=== PATIENT | male | born 2000 | race Caucasian/White ===

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

== ENCOUNTER 2021-05-08 07:24 | Emergency (ER) | payer OTHER, SELFPAY ==
[2021-05-08 07:24] VITALS: BP 133/83; PULSE 87; RESP 18; TEMP 35.8; O2SAT 100; BMI 20.9
--- NOTE | 2021-05-08 07:54 | EDS_ITS ---
HPI HPI - GI History of Present Illness Chief Complaint: Abd Pain Informant: patient Abdominal Pain/Flank Pain Onset: Weeks (1) Context: Gradual Onset Timing: Continuous Quality: Sharp Location: RUQ and RLQ Worsened by: Nothing Relieved by: Nothing Nausea/Vomiting/Emesis GI Symptom: Positive for Nausea; Negative for Vomiting Diarrhea/Melena/Hematochezia GI Symptom: Positive for Diarrhea; Negative for Melena and Hematochezia Associated Symptoms Associated Symptoms: Negative for Dysuria, Frequency and Hematuria Narrative Narrative: Patient presents with abdominal pain that has been constant for the past week. Patient states the pain is worse over the right upper abdomen and radiates into his right lower abdomen. Patient also admits to some pain in his back on the right side. Patient describes the pain as sharp. Patient states nothing makes it worse and nothing makes it better. Patient admits to nausea but denies any vomiting. Patient admits to diarrhea but denies any melena or hematochezia. Patient denies any dysuria or hematuria. Patient states his urine is darker in color however. Patient also admits to some subjective fevers. [facility] Medical History (Updated 05/08/21 @ 11:[address] Subhash Blackwood DO) GERD (gastroesophageal reflux disease) Home Medications pantoprazole 40 mg PO BID 05/08/21 [History Last Taken Unknown] sulfamethoxazole-trimethoprim 1 tab PO BID #6 tablet 05/08/21 [Rx Last Taken Unknown] Allergy/AdvReac Type Severity Reaction Status Date / Time codeine Allergy Hives Verified 05/08/21 07:27 beef derived (bovine) AdvReac Nausea/Vom/ Verified 05/08/21 07:27 Diarrhea casein AdvReac Nausea/Vom/ Verified 05/08/21 07:27 Diarrhea lactose AdvReac Nausea/Vom/ Verified 05/08/21 07:27 Diarrhea whey AdvReac Nausea/Vom/ Verified 05/08/21 07:27 Diarrhea Family History Other Diabetes Kidney disease Surgical History History of foot surgery History of tonsillectomy Status post labral repair of shoulder Social History (Updated 05/08/21 @ 07:[address] Subhash Schwiger, DO) Smoking Status: Current every day smoker tobacco type: e-cigarettes alcohol intake: never substance use type: marijuana ROS ROS ED Constitutional Constitutional ED: Reports fever(s) and subjective; Denies chills Eyes Eyes: Denies blurry vision or change in vision ENT ENT ED: Denies rhinorrhea or sore throat Cardiovascular Cardiovascular: Denies chest pain or palpitations Respiratory/Chest Respiratory/Chest: Denies cough or dyspnea Gastrointestinal Gastrointestinal: Reports abdominal pain, diarrhea and nausea; Denies vomiting Genitourinary Genitourinary ED: Denies dysuria or hematuria Musculoskeletal Musculoskeletal: Reports back pain; Denies neck pain Integumentary Denies abscess or rash Neurologic Neurologic: Reports headache(s); Denies weakness Allergic/Immunologic Allergic/Immunologic ED: Denies mouth swelling or urticaria EXAM Physical Exam Const Vital Signs: 05/08/21 07:24 Temperature 96.5 F L Temperature Source Temporal Pulse Rate 87 Respiratory Rate 18 Blood Pressure 133/83 H Blood Pressure Mean 99 Pulse Ox 100 Oxygen Delivery Method Room Air Positive well nourished and well developed General Appearance ED: well developed HEENT Reports moist mucous membranes Neck supple and no JVD Resp normal respiratory effort and clear to auscultation bilaterally Cardio regular rate, regular rhythm and no murmurs GI normal to inspection, nondistended, normoactive bowel sounds and non-distended Auscultation: normoactive bowel sounds Palpation: soft and tender RLQ and RUQ; Negative for guarding or rebound tenderness present Extremity normal to inspection General Extremety ED: Negative for edema or tenderness General Extremity: Negative for edema Neuro oriented x3, CN's II-XII intact bilaterally and no sensory deficits noted Sensorium / Orientation: alert Motor Exam: strength 5/5 throughout Psych mental status grossly normal Skin no rashes or lesions noted MDM MDM MDM Narrative Medical decision making narrative: Patient was given IV fluids. Patient was given a dose of Zofran. CBC was within normal limits. Comprehensive metabolic profile was essentially within normal limits. Urinalysis shows leukocyte Estrace of 500 and occult blood of 250. There are 25-50 red blood cells and 25- 50 white blood cells. There is 1+ bacteria. Urine culture was ordered. CT scan of the abdomen and pelvis was obtained. There is a distended urinary bladder and bladder wall thickening. There is some mild fullness of the right ureter. There is no other acute abnormality. The liver and gallbladder are normal. Patient was given a dose of Rocephin here. Patient was given a prescription for Bactrim. Patient was instructed to follow-up with his primary care physician in 3 to 5 days. Patient understood and was agreeable with the plan. All questions were answered. Lab Data Attestation: I reviewed the patient's lab results. Labs: Laboratory Results - last 24 hr 05/08/21 05/08/21 05/08/21 08:00 08:00 09:05 WBC 9.7 RBC 5.42 Hgb 15.5 Hct 45.6 MCV 84.1 MCH 28.6 MCHC 34.0 RDW Std Deviation 40.3 RDW Coeff of Shahbaz 13.2 Plt Count 187 MPV 11.6 Immature Gran % (Auto) 0.300 Neut % (Auto) 67.1 Lymph % (Auto) 21.2 [place] % (Auto) 7.8 Eos % (Auto) 3.1 Baso % (Auto) 0.5 Absolute Neuts (auto) 6.5 Absolute Lymphs (auto) 2.05 Nucleated RBC % 0 Sodium 141 Potassium 4.0 Chloride 108 H Carbon Dioxide 30.0 Anion Gap 3 L BUN 19 H Creatinine 1.12 Estim Creat Clear Calc 93.01 Est GFR (MDRD) Af Amer 107 Est GFR (MDRD) Non-Af 89 BUN/Creatinine Ratio 17.0 Glucose 106 Calcium 9.1 Total Bilirubin 0.20 AST 21 ALT 21 Alkaline Phosphatase 70 Total Protein 6.0 L Albumin 2.6 L Globulin 3.4 Albumin/Globulin Ratio 0.8 L Lipase 179 Urine Color Yellow Urine Clarity Sl. Cloudy Urine pH 7.0 Ur Specific [place] 1.010 Urine Protein 500 H Urine Glucose (UA) Normal Urine Ketones Negative Urine Occult Blood 250 H Urine Nitrite Negative Urine Bilirubin Negative Urine Urobilinogen Normal Ur Leukocyte Esterase 500 H Urine RBC 25-50 SEEN Urine WBC 25-50 SEEN Ur Squamous Epith Cells 0 SEEN Urine Bacteria 1+ Urine Mucus 0 SEEN Radiography Diagnostic Testing: Clinical Impression(s) from Imaging Studies Abdomen/Pelvis CT 05/08/21 07:58 IMPRESSION: Distended urinary bladder. Diffuse bladder wall thickening. Electronically Signed: Shimon Fajardo MD at 10:47 EST , Discharge Plan Triage Chief Complaint: Abd Pain ED Provider: Subhash Blackwood Dx/Rx/DC Orders Clinical Impression: Urinary tract infection Instructions: ED Bladder Infection, Male (Adult), ED Abdominal Pain Unkn Cause Male... Prescriptions: New sulfamethoxazole-trimethoprim [sulfamethoxazole-trimethoprim] 1 TABLET tablet 1 tab PO BID Qty: 6 RF: 0 No Action pantoprazole 40 mg Tablet,Delayed Release (Dr/Ec) 40 mg PO BID RF: 0 Primary Care Provider: Franck Love Referrals: Franck Love DO [Primary Care Provider] - 3-5 Days Disposition Disposition: Home, Self Care
--- NOTE | 2021-05-08 07:58 | CT_ITS ---
STUDY: CT ABDOMEN AND PELVIS WITH CONTRAST REASON FOR EXAM: Male, 21 years old. One-week history of sharp abdominal pain. RADIATION DOSAGE (If Supplied By Facility): CTDIvol = ( 7.96 ) mGy, DLP = ( 312.05 ) mGycm TECHNIQUE: Transaxial images were obtained from the dome of the diaphragm to the symphysis pubis with oral contrast. Oral and amp; IV Gastrografin and amp; 100mL Isovue-300 was administered. Sagittal and coronal images were reconstructed. Individualized dose optimization techniques were used for this CT. COMPARISON: None. FINDINGS: The visualized lung bases are unremarkable. The visualized portions of the heart are within normal limits. Normal liver. Normal gallbladder and extrahepatic biliary system. Normal spleen. Normal pancreas. Normal bilateral adrenal glands. Normal right kidney. Fullness of the right ureter. Normal left kidney. Normal visualized stomach. Normal small intestine. Normal colon. The appendix is visualized and appears normal. Normal abdominal aorta. Normal inferior vena cava. Normal retroperitoneum. Distended urinary bladder. Diffuse bladder wall thickening. Normal abdominal wall. Normal osseous structures. CT/Abdomen/Pelvis WITH Contrast IMPRESSION: Distended urinary bladder. Diffuse bladder wall thickening. Electronically Signed: Shimon Fajardo MD at 10:47 EST ,
[2021-05-08 08:06] LABS: Absolute Lymphocyte Count 2.05 X10^3/uL (0.83-4.51); Absolute Neutrophil Count 6.5 X10^3/uL (2.0-7.7); Basophil# 0.05 X10^3/uL; Basophil% 0.5 % (0-1); Eosinophils% 3.1 % (0-5); Hematocrit 45.6 % (40-54); Hemoglobin 15.5 g/dL (13.0-16.5); Lymphocyte # 2.05 X10^3/ul (0.83-4.51); Lymphocyte % 21.2 % (19-41); Mean Corpuscular Hgb 28.6 pg (27.0-32.0); Mean Corpuscular Volume 84.1 fL (80-94); Mean Platelet Vol. 11.6 fl (6.2-12.0); Monocyte# 0.75 X10^3/uL; Monocyte% 7.8 % (0-10); NRBC Flagged by Analyzer 0 % (0-5); Neutrophil # 6.48 X10^3/uL (2.7-7.7); Neutrophil % 67.1 % (47-70); Platelet Count 187 K/mm3 (150-450); RBC Distribution Width CV 13.2 % (11.6-14.6); RBC Distribution Width SD 40.3 fl (35.1-43.9); Red Blood Count 5.42 M/mm3 (4.6-6.2); White Blood Count 9.7 K/mm3 (4.4-11.0)
[2021-05-08] MEDS: 0.9% Normal Saline 1,000 ML 1000 ML IV (08:11)
[2021-05-08] MEDS: Ondansetron 4 MG/2 ML Vial IV (08:12)
[2021-05-08 08:21] LABS: ALB/GLOB Ratio 0.8 RATIO (0.9-2.4); AST(SGOT) 21 U/L (15-37); Alanine Aminotransfer ALT/SGPT 21 U/L (16-61); Albumin, Serum 2.6 g/dL (3.2-5.0); Alkaline Phosphatase 70 U/L (45-117); Anion Gap 3 (5-15); BUN 19 mg/dL (7-18); Calcium,Total 9.1 mg/dL (8.5-10.1); Chloride 108 mmol/L (98-107); Creatinine, Serum 1.12 mg/dL (0.70-1.30); EST Glomerular Filtration Rate 89 mL/min (>60); Est Glom Filt Rate - Afr Amer 107 mL/min (>60); Estimated Creatinine Clearance 93.01 ml/min; Globulin 3.4 g/dL (2.2-4.2); Glucose 106 mg/dL (74-106); Lipase 179 U/L (73-393); Sodium Level 141 mmol/L (136-145)
[2021-05-08 09:15] LABS: Mucous, Urine 0 SEEN /hpf (<or=2+); Squamous Epithelial Cells - UA 0 SEEN /hpf (0-5)
[2021-05-08 09:18] LABS: Color, Urine Yellow (Yellow); Glucose, Dipstick Normal (Normal); Ketone-Dipstick Negative (Negative); Leukocyte Esterase-Dipstick 500 /ul (Negative); Nitrite-Dipstick Negative (Negative); Occult Blood-Urine 250 /ul (Negative); Protein-Dipstick 500 mg/dl (Negative); Urine Bilirubin Dipstick Negative (Negative); Urine Clarity Sl. Cloudy (Clear); Urine Urobilinogen Normal (Normal)
[2021-05-08 09:25] LABS: White Blood Cells 25-50 SEEN /hpf (0-5)
[2021-05-08 09:26] LABS: Bacteria 1+ /hpf (None Seen); Red Blood Cells-Urine 25-50 SEEN /hpf (0-5)
[2021-05-08] MEDS: Ceftriaxone 1 GM/50 ML BAG IV (11:42)
[2021-05-08 12:32] VITALS: PULSE 92; RESP 16; O2SAT 98
== END 2021-05-08 12:33 | disposition home or self-care (01) ==
PROVIDERS: Emergency Provider Emergency Medicine; PCP Student in an Organized Health Care Education/Training Program; Visit Provider Emergency Medicine
DX: N39.0 Urinary tract infection, site not specified (principal); K21.9 Gastro-esophageal reflux disease without esophagitis; F17.290 Nicotine dependence, other tobacco product, uncomplicated
CPT/HCPCS: 74177; 80053; 81001; 83690; 85025; 87086; 96361; 96365; 96375; 99283; J7030; Q9967; A4216; J2405

== ENCOUNTER 2023-02-27 00:29 | Day surgery (SDC) | payer OTHER, SELFPAY ==
[2023-02-27] VITALS (12 sets, daily range): BP systolic 95–145; BP diastolic 49–95; PULSE 74–104; RESP 14–22; TEMP 36.1–36.8; O2SAT 95–100; BMI 19.8
--- NOTE | 2023-02-27 | ESO_PTH ---
PATIENT: [place] [facility] [id number] AGE/SX: 23/M ROOM: RE02/27/[address]: Dr. Sumit Bell DO : 2000 BED: DIS: 02/27/2023 SPEC #: [id number] RECD: 02/27/23 13:52 STATUS: KAYLEIGH REQ #: [id number] NANI: 02/27/23 00:[address]: Sumit Bell DEPT: SURGICAL PATHOLOGY RECD BY: Dao Hunt ENTERED: 02/27/23 13:52 SP TYPE: TWYLA ANDERSON DR: Dr. Franck Love DO Tissues: Esophagus, NOS Procedures: Special Stain Group II Surgery Specimen Level IV Alcian Blue/PAS (control) HEADER OPERATION: EGD with foreign body removal and biopsy PRE-OP DIAGNOSIS: Foreign body, food impaction TISSUE SUBMITTED: Random esophagus biopsy MICROSCOPIC DIAGNOSIS Esophagus, random biopsy: Fragments of gastroesophageal mucosa with changes consistent with eosinophilic esophagitis. Chronic inflammation. Intestinal metaplasia (goblet cell metaplasia) not identified. See comment. ANGLE:lisa 02/28/2023 COMMENT Increased number of eosinophils (>20 per high power field) are noted consistent with eosinophilic esophagitis. Alcian blue/PAS stain with matched control is used in the evaluation of the specimen. Correlation with clinical, endoscopic findings and appropriate follow up are necessary. MICROSCOPIC DESCRIPTION Slides are reviewed. GROSS DESCRIPTION Received in fixative is one container labeled with the patient's name and designated random esophagus biopsy. The specimen consists of multiple irregular fragments of light churchill soft tissue that in aggregate measure 1.5 x 0.5 x 0.1 cm. The specimen is totally submitted in one cassette. / ANGLE:lisa 02/27/2023 TC:3 CPT: 22363, 18586
--- NOTE | 2023-02-27 01:01 | EX.ED.DYSGE1 ---
HPI History of Present Illness Chief Complaint: Foreign Body Informant: patient and parent Narrative Narrative: Presents with concern for esophageal meat impaction. He was eating a taco with what sounds like a shredded beef in it. He felt as though it got stuck. He points to a little bit below the jugular notch. Initially he felt a little short of breath but that has passed. He keeps spitting saliva and is not able to swallow. He did vomit a couple times but really just brought out a little bit of liquid and no significant food particles. He has a history of GERD and used to be on pantoprazole. He had an EGD a long time ago. There has been no bleeding. [facility] Medical History GERD (gastroesophageal reflux disease) Home Medications pantoprazole 40 mg tablet,delayed release 40 mg PO BID 05/08/21 [History Last Taken Unknown] sulfamethoxazole 800 mg-trimethoprim 160 mg tablet 1 tab PO BID #6 TABLETS 05/08/21 [Rx Last Taken Unknown] ondansetron 4 mg disintegrating tablet 4 mg PO Q8H PRN nausea and vomiting #14 tabs 05/12/21 [Rx Last Taken Unknown] promethazine 6.25 mg/5 mL oral syrup 12.5 mg (10 mL) PO QHS PRN nausea and vomiting #473 mL 05/12/21 [Rx Last Taken Unknown] Allergy/AdvReac Type Severity Reaction Status Date / Time codeine Allergy Hives Verified 05/08/21 07:27 beef derived (bovine) AdvReac Nausea/Vom/ Verified 05/08/21 07:27 Diarrhea casein AdvReac Nausea/Vom/ Verified 05/08/21 07:27 Diarrhea lactose AdvReac Nausea/Vom/ Verified 05/08/21 07:27 Diarrhea whey AdvReac Nausea/Vom/ Verified 05/08/21 07:27 Diarrhea Family History Other Diabetes Kidney disease Surgical History History of foot surgery History of tonsillectomy Status post labral repair of shoulder Social History Smoking Status: Current every day smoker tobacco type: e-cigarettes alcohol intake: never substance use type: marijuana ROS ROS ED Constitutional Constitutional ED: Denies chills or fever(s) ENT ENT ED: Reports other Details: Is able to speak and breathe. Respiratory/Chest Respiratory/Chest: Reports other Details: Initially felt short of breath when it first went down and got stuck but that has passed. ; Denies dyspnea Gastrointestinal Gastrointestinal: Reports nausea and vomiting Hematologic/Lymphatic Hematologic/Lymphatic: Denies easy bleeding or easy bruising Allergic/Immunologic Allergic/Immunologic ED: Denies urticaria EXAM Physical Exam Narrative Exam Narrative: General: Patient awake alert sitting on bed in no acute distress. He is holding an emesis bag and spitting saliva into a quite frequently. HEENT: He has a normal voice carries on normal speech. Oropharynx is hydrated. I do not see any blood. There is no swelling or visible foreign body. Neck is supple. No stridor. No fullness. Lungs are clear bilaterally with good deep breaths and equal breath sounds. Saturations are normal 100% on room air showing no hypoxia. Heart is regular. No muffled tones or Sadaf's crunch. Abdomen is soft nontender with normal bowel sounds. Const Vital Signs: 02/27/23 00:30 02/27/23 00:35 02/27/23 01:23 Temperature 97.0 F L Temperature Source Temporal Pulse Rate 99 87 Respiratory Rate 14 14 Respiratory Effort Non-Labored Respiratory Pattern Normal Blood Pressure 145/88 H 141/94 H Blood Pressure Mean 107 109 Pulse Ox 100 99 Oxygen Delivery Method Room Air Room Air 02/27/23 03:00 Temperature Temperature Source Pulse Rate 89 Respiratory Rate 15 Respiratory Effort Respiratory Pattern Blood Pressure Blood Pressure Mean Pulse Ox 97 Oxygen Delivery Method Room Air MDM MDM MDM Narrative Medical decision making narrative: We had him drink some warm Diet Coke and do heel strikes. This caused him to spit up foamy Coke. It looks like there was a little bit of material in there but not significant amount. We will have him rest and do this again as it does not seem to have cleared this. In the meantime I will get him a dose of glucagon to see if that will assist. We have attempted again. Patient had good heel strikes. But he does not feel as though the impaction is moved. We will let him rest a bit. We have tried glucagon. We have tried the Diet Coke multiple times. He does not feel as though it is moved at all. I did contact gastroenterology, . Friend. Plan will be to add the patient on in the morning prior to his first procedure. Patient will be made NPO. We are doing basic blood work and x-ray. Patient's CBC shows mild elevation of white count at 12.2 which is nonspecific. Mild elevation in the hemoglobin at 16.8. Platelets are normal. If patient's electrolytes are normal other than mild elevation of glucose at 124 but he is having stress and just. Liver function test are normal. PT is normal PTT is normal. Chest x-ray is being done. Due to a problem with the system [employer], I am not able to look at these images at all. We are having radiology read these. They cannot have their reading appear on our system. Results will be faxed to us as soon as they are available. The x-ray was read as no acute pulmonary finding. I am still not able to see the images or given independent interpretation as I do not have access to these images. In the morning patient is transferred down to outpatient surgery for procedure. Lab Data Attestation: I reviewed the patient's lab results. Labs: Laboratory Results - last 24 hr 02/27/23 02/27/23 02:20 02:35 WBC 12.2 H RBC 6.05 Hgb 16.8 H Hct 49.4 MCV 81.7 MCH 27.8 MCHC 34.0 RDW Std Deviation 36.9 RDW Coeff of Shahbaz 12.5 Plt Count 237 MPV 13.3 H Immature Gran % (Auto) 0.200 Neut % (Auto) 55.5 Lymph % (Auto) 33.8 [place] % (Auto) 5.6 Eos % (Auto) 3.9 Baso % (Auto) 1.0 Absolute Neuts (auto) 6.8 Absolute Lymphs (auto) 4.11 Nucleated RBC % 0 PT 13.7 INR 1.1 APTT 26.5 Sodium 141 Potassium 3.5 Chloride 107 Carbon Dioxide 27.0 Anion Gap 7 BUN 18 Creatinine 1.28 Estim Creat Clear Calc 75.67 Est GFR (MDRD) Af Amer 90 Est GFR (MDRD) Non-Af 75 BUN/Creatinine Ratio 14.1 Glucose 124 H Calcium 8.8 Total Bilirubin 0.60 AST 15 ALT 21 Alkaline Phosphatase 63 Total Protein 6.1 L Albumin 3.1 L Globulin 3.0 Albumin/Globulin Ratio 1.0 Discharge Plan Triage Chief Complaint: Foreign Body ED Provider: Kevin Carlin Dx/Rx/DC Orders Clinical Impression: Food impaction of esophagus, Hx of gastroesophageal reflux (GERD) Instructions: ED Esophageal Foreign Body, Resolved Prescriptions: No Action pantoprazole 40 mg Tablet,Delayed Release (Dr/Ec) 40 mg PO BID sulfamethoxazole-trimethoprim [sulfamethoxazole-trimethoprim] 1 TABLET tablet 1 tab PO BID Qty: 6 0RF ondansetron 4 mg tablet,disintegrating 4 mg PO Q8H PRN (Reason: nausea and vomiting) Qty: 14 0RF promethazine 6.25 mg/5 mL syrup 12.5 mg PO QHS PRN (Reason: nausea and vomiting) Qty: 473 0RF Primary Care Provider: Franck Love Referrals: Franck Love DO [Primary Care Provider] - Disposition Disposition: Acute Care Hospital [facility]
[2023-02-27] MEDS: Glucagon 1 MG/ML Syringe IV (01:20)
--- NOTE | 2023-02-27 02:30 | RAD_ITS ---
INDICATION: cough EXAMINATION/TECHNIQUE: X-RAY - XR Chest 1 View COMPARISON: No relevant prior comparison study available FINDINGS: LINES/DEVICES: None. LUNGS: The lungs are well expanded. No consolidation, edema or effusion. No pneumothorax. MEDIASTINUM AND CARDIOVASCULAR STRUCTURES: Cardiac silhouette not enlarged. Central airways and mediastinal contour are unremarkable. BONES AND SOFT TISSUES: No acute abnormality. RAD/Chest 1 View (Portable) IMPRESSION: No acute pulmonary finding. Electronically Signed: Jt Rogers MD at 2:56 EST ,
[2023-02-27 02:32] LABS: Absolute Lymphocyte Count 4.11 X10^3/uL (0.83-4.51); Absolute Neutrophil Count 6.8 X10^3/uL (2.0-7.7); Basophil# 0.12 X10^3/uL; Eosinophil# 0.47 X10^3/uL; Eosinophils% 3.9 % (0-5); Hematocrit 49.4 % (40-54); Hemoglobin 16.8 g/dL (13.0-16.5); Lymphocyte # 4.11 X10^3/ul (0.83-4.51); Lymphocyte % 33.8 % (19-41); Mean Corpuscular Hgb 27.8 pg (27.0-32.0); Mean Corpuscular Volume 81.7 fL (80-94); Mean Platelet Vol. 13.3 fl (6.2-12.0); Monocyte# 0.68 X10^3/uL; Monocyte% 5.6 % (0-10); NRBC Flagged by Analyzer 0 % (0-5); Neutrophil # 6.75 X10^3/uL (2.7-7.7); Neutrophil % 55.5 % (47-70); Platelet Count 237 K/mm3 (150-450); RBC Distribution Width CV 12.5 % (11.6-14.6); RBC Distribution Width SD 36.9 fl (35.1-43.9); Red Blood Count 6.05 M/mm3 (4.6-6.2); White Blood Count 12.2 K/mm3 (4.4-11.0)
[2023-02-27] MEDS: LORazepam 2 MG/ML Syringe 1 MG IV (02:46)
[2023-02-27 02:47] LABS: AST(SGOT) 15 U/L (15-37); Alanine Aminotransfer ALT/SGPT 21 U/L (16-61); Albumin, Serum 3.1 g/dL (3.2-5.0); Alkaline Phosphatase 63 U/L (45-117); Anion Gap 7 (5-15); BUN 18 mg/dL (7-18); BUN/Creat Ratio 14.1 RATIO (10-20); Calcium,Total 8.8 mg/dL (8.5-10.1); Chloride 107 mmol/L (98-107); Creatinine, Serum 1.28 mg/dL (0.70-1.30); EST Glomerular Filtration Rate 75 mL/min (>60); Est Glom Filt Rate - Afr Amer 90 mL/min (>60); Estimated Creatinine Clearance 75.67 ml/min; Glucose 124 mg/dL (74-106); Potassium 3.5 mmol/L (3.5-5.1); Protein, Total 6.1 g/dL (6.4-8.2); Sodium Level 141 mmol/L (136-145)
[2023-02-27] MEDS: Pantoprazole Sodium 80 MG in 0.9% Normal Saline (50mL Bag) 15 ML 420 MG IV BOLUS (02:50)
[2023-02-27] MEDS: 0.9% Normal Saline (1000mL) 1,000 ML 125 ML IV (02:51)
[2023-02-27 02:56] LABS: International Normalized Ratio 1.1; Prothrombin Time (Protime)PT. 13.7 SECONDS (11.7-14.9)
[2023-02-27 02:57] LABS: Partial Thromboplast Time 26.5 Seconds (24.1-36.2)
--- NOTE | 2023-02-27 06:57 | HP.PCM_ITS ---
HPI - General General Date of Admission: 02/27/23 Date of Service: 02/27/23 Chief Complaint: Food impaction HPI Narrative WING CALL, is a 23 M who presents today with foreign body sensation after eating. He has concerns of esophageal meat impaction. He was eating a taco with what sounds like a shredded beef in it. He felt as though it got stuck. He points to a little bit below the jugular notch. Initially he felt a little short of breath but that has passed. He keeps spitting saliva and is not able to swallow. He did vomit a couple times but really just brought out a little bit of liquid and no significant food particles. He has a history of GERD and used to be on pantoprazole. He had an EGD a long time ago. There has been no bleeding. [facility] Medical History GERD (gastroesophageal reflux disease) Home Medications pantoprazole 40 mg tablet,delayed release 40 mg PO BID 05/08/21 [History Last Taken Unknown] sulfamethoxazole 800 mg-trimethoprim 160 mg tablet 1 tab PO BID #6 TABLETS 05/08/21 [Rx Last Taken Unknown] ondansetron 4 mg disintegrating tablet 4 mg PO Q8H PRN nausea and vomiting #14 tabs 05/12/21 [Rx Last Taken Unknown] promethazine 6.25 mg/5 mL oral syrup 12.5 mg (10 mL) PO QHS PRN nausea and vomiting #473 mL 05/12/21 [Rx Last Taken Unknown] Allergy/AdvReac Type Severity Reaction Status Date / Time codeine Allergy Hives Verified 05/08/21 07:27 beef derived (bovine) AdvReac Nausea/Vom/ Verified 05/08/21 07:27 Diarrhea casein AdvReac Nausea/Vom/ Verified 05/08/21 07:27 Diarrhea lactose AdvReac Nausea/Vom/ Verified 05/08/21 07:27 Diarrhea whey AdvReac Nausea/Vom/ Verified 05/08/21 07:27 Diarrhea Family History Other Diabetes Kidney disease Surgical History History of foot surgery History of tonsillectomy Status post labral repair of shoulder Social History Smoking Status: Current every day smoker tobacco type: e-cigarettes alcohol intake: never substance use type: marijuana ROS Review of Systems ROS Unobtainable: other Constitutional Constitutional: Denies fatigue, fever(s), poor appetite, weight gain or weight loss ENT HEENT: Denies mouth lesions Cardiovascular Cardiovascular: Denies abdominal bloating, abdominal edema or abdominal pain Respiratory/Chest Respiratory/Chest: Denies change in mental status, change in phlegm color, chest congestion or chest tightness Gastrointestinal Gastrointestinal: Denies belching, bloating, change in bowel habits, change in stool character, chewing difficulty, coffee ground emesis, constipation, cramping, diarrhea, dyspepsia, dysphagia, early satiety, excessive flatus, fecal incontinence, heartburn, hematemesis, hematochezia, hemorrhoids, loose stools, melena, nausea, odynophagia, rectal bleeding, tenesmus, vomiting or weight changes Genitourinary Genitourinary: Denies abdominal discomfort, burning urination or itching Musculoskeletal Musculoskeletal: Reports as per HPI; Denies muscle weakness or myalgias Integumentary Integumentary: Denies jaundice Neurologic Neurologic: Denies lack of coordination or weakness Psychiatric Psychiatric: Denies confusion, depression, memory loss, mood swings, paranoia or suicidal ideation Endocrine Endocrinology: Denies systems reviewed and no addt'l complaints, except as documented Hematologic/Lymphatic Hematologic/Lymphatic: Denies anemia, easy bleeding, easy bruising or lymphadenopathy Allergic/Immunologic Allergic/Immunologic: Denies systems reviewed and no addt'l complaints, except as documented Vital Signs Vital Signs Vital Signs: 02/27/23 00:30 02/27/23 00:35 02/27/23 01:23 Temperature 97.0 F L Temperature Source Temporal Pulse Rate 99 87 Respiratory Rate 14 14 Respiratory Effort Non-Labored Respiratory Pattern Normal Blood Pressure 145/88 H 141/94 H Blood Pressure Mean 107 109 Pulse Ox 100 99 Oxygen Delivery Method Room Air Room Air 02/27/23 03:00 02/27/23 06:14 Temperature Temperature Source Pulse Rate 89 98 Respiratory Rate 15 22 H Respiratory Effort Respiratory Pattern Blood Pressure 123/95 H Blood Pressure Mean 104 Pulse Ox 97 97 Oxygen Delivery Method Room Air Weight Weight: 130 lb 4.691 oz Body Mass Index (BMI) 19.8 Physical Exam Const alert General Appearance: cooperative Orientation / Consciousness: oriented to person HEENT hearing grossly normal bilaterally Head and Scalp: normal to inspection Face and Sinus: face symmetric Nose: external nose normal Mouth: oral and palatal mucosa normal Eyes conjunctivae normal General Eye: normal appearance of both eyes Neck full ROM General: normal visual inspection Lymph Lymphatic: no lymphadenopathy noted Chest inspection of chest normal and palpation of chest normal Chest: symmetrical chest wall rise Resp normal respiratory effort Effort and Inspection: able to speak in complete sentences Cardio regular rate GI non-distended Percussion: normal to percussion Rectal Exam: deferred Neuro Speech: speech normal Gait (Neuro): normal gait Results Lab / Micro Data 02/27/23 02:20 02/27/23 02:20 Labs: Laboratory Results - last 24 hr 02/27/23 02:20: WBC 12.2 H, RBC 6.05, Hgb 16.8 H, Hct 49.4, MCV 81.7, MCH 27.8, MCHC 34.0, RDW Std Deviation 36.9, RDW Coeff of Shahbaz 12.5, Plt Count 237, MPV 13.3 H, Immature Gran % (Auto) 0.200, Neut % (Auto) 55.5, Lymph % (Auto) 33.8, Wilkinson % (Auto) 5.6, Eos % (Auto) 3.9, Baso % (Auto) 1.0, Absolute Neuts (auto) 6.8, Absolute Lymphs (auto) 4.11, Nucleated RBC % 0, Sodium 141, Potassium 3.5, Chloride 107, Carbon Dioxide 27.0, Anion Gap 7, BUN 18, Creatinine 1.28, Estim Creat Clear Calc 75.67, Est GFR (MDRD) Af Amer 90, Est GFR (MDRD) Non-Af 75, BUN/Creatinine Ratio 14.1, Glucose 124 H, Calcium 8.8, Total Bilirubin 0.60, AST 15, ALT 21, Alkaline Phosphatase 63, Total Protein 6.1 L, Albumin 3.1 L, Globulin 3.0, Albumin/Globulin Ratio 1.0 02/27/23 02:35: PT 13.7, INR 1.1, APTT 26.5 Imagaing Radiology Impression Chest X-Ray 02/27/23 02:30 IMPRESSION: No acute pulmonary finding. Electronically Signed: Jt Rogers MD at 2:56 EST , Assessment & Plan Assessment/Plan (1) Hx of gastroesophageal reflux (GERD): (2) Food impaction of esophagus: QUALIFIERS: Encounter type: initial encounter Qualified Code(s): T18.128A - Food in esophagus causing other injury, initial encounter; W44.F3XA - Food entering into or through a natural orifice, initial encounter PLAN: Plan 23-year-old comes in with foreign body sensation after eating at [email or web address]. He has a history of gastric reflux disease. He does not take medicines on daily basis for GERD history of reflux disease. He will undergo EGD with foreign body removal. He was explained alternatives, risk, benefits including not withstanding bleeding, infection, sepsis, perforation, need for emergent surgery . He will have an ASA of 2.
--- NOTE | 2023-02-27 07:26 | OP.CCLET_ITS ---
02/27/2023 Franck Love Do Re : Upper GI endoscopy procedure for Chilo Yu Dear Kate This procedure was performed on Monday, February 27, 2023. My impressions and recommendations are as follows: Impressions : - Esophageal mucosal changes consistent with eosinophilic esophagitis. - Food in the lower third of the esophagus. Removal was successful. - Severe Schatzki ring. Dilated. - Small hiatal hernia. - Retained gastric fluid. - No gross lesions in the duodenal bulb. - Biopsies were taken with a cold forceps for evaluation of eosinophilic esophagitis. Recommendations : - Discharge patient to home. - Clear liquid diet for 2 days. - Use Protonix (pantoprazole) 40 mg PO BID for 12 weeks. - Continue present medications. My findings are described in the full procedure note, which is enclosed. If I can be of further assistance, please feel free to contact me at . Sincerely, Sumit Bell, 02/27/2023 7:26:11 AM This report has been signed electronically.
--- NOTE | 2023-02-27 07:26 | OP.EGD_ITS ---
Patient Name: Chilo Yu Procedure Date: 02/27/2023 7:00 AM Date of : 2000 Age: 23 Procedure: Upper GI endoscopy Indications: Dysphagia, Foreign body in the esophagus Providers: Sumit Bell DO Medicines: Monitored Anesthesia Care Patient Profile: This is a 23 year old male. Refer to note in patient chart for documentation of history and physical. Patient has symptoms of acute dysphagia and acute vomiting. Complications: No immediate complications. Procedure: Pre-Anesthesia Assessment: - Prior to the procedure, a History and Physical was performed, and patient medications and allergies were reviewed. The risks and benefits of the procedure and the sedation options and risks were discussed with the patient. All questions were answered and informed consent was obtained. Patient identification and proposed procedure were verified by the physician in the pre-procedure area. Mental Status Examination: alert and oriented. Prophylactic Antibiotics: The patient does not require prophylactic antibiotics. Prior Anticoagulants: The patient has taken no anticoagulant or antiplatelet agents. ASA Grade Assessment: II - A patient with mild systemic disease. After reviewing the risks and benefits, the patient was deemed in satisfactory condition to undergo the procedure. The anesthesia plan was to use monitored anesthesia care (MAC). Immediately prior to administration of medications, the patient was re-assessed for adequacy to receive sedatives. The heart rate, respiratory rate, oxygen saturations, blood pressure, adequacy of pulmonary ventilation, and response to care were monitored throughout the procedure. The physical status of the patient was re-assessed after the procedure. After obtaining informed consent, the endoscope was passed under direct vision. Throughout the procedure, the patient's blood pressure, pulse, and oxygen saturations were monitored continuously. The Endoscope was introduced through the mouth, and advanced to the second part of duodenum. The upper GI endoscopy was accomplished without difficulty. The patient tolerated the procedure well. Scope In: 7:12:52 AM Scope Out: 7:20:35 AM Total Procedure Duration Time 0 hours 7 minutes 43 seconds Findings: Mucosal changes including ringed esophagus, feline appearance, longitudinal furrows, small-caliber esophagus and white plaques were found in the entire esophagus. Esophageal findings were graded using the Eosinophilic Esophagitis Endoscopic Reference Score (EoE-EREFS) as: Edema Grade 1 Present (decreased clarity or absence of vascular markings), Rings Grade 2 Moderate (distinct rings that do not occlude passage of diagnostic 8-10 mm endoscope), Exudates Grade 1 Mild (scattered white lesions involving less than 10 percent of the esophageal surface area) and Furrows Grade 1 Mild (vertical lines without visible depth). Biopsies were obtained from the proximal and distal esophagus with cold forceps for histology of suspected eosinophilic esophagitis. Verification of patient identification for the specimen was done. Estimated blood loss was minimal. Food was found in the lower third of the esophagus. Removal was accomplished with a Ash net. Verification of patient identification for the specimen was done. Estimated blood loss was minimal. A severe Schatzki ring was found at the gastroesophageal junction. A guidewire was placed and the scope was withdrawn. Dilation was performed with a Savary dilator with no resistance at 45 Fr. The dilation site was examined and showed moderate mucosal disruption. Estimated blood loss was minimal. A small hiatal hernia was present. Retained fluid was found in the stomach. No gross lesions were noted in the duodenal bulb. Impression: - Esophageal mucosal changes consistent with eosinophilic esophagitis. - Food in the lower third of the esophagus. Removal was successful. - Severe Schatzki ring. Dilated. - Small hiatal hernia. - Retained gastric fluid. - No gross lesions in the duodenal bulb. - Biopsies were taken with a cold forceps for evaluation of eosinophilic esophagitis. Recommendation: - Discharge patient to home. - Clear liquid diet for 2 days. - Use Protonix (pantoprazole) 40 mg PO BID for 12 weeks. - Continue present medications. Procedure Code(s): --- Professional --- 88629, Esophagogastroduodenoscopy, flexible, transoral; with removal of foreign body(s) 41740, 51, Esophagogastroduodenoscopy, flexible, transoral; with insertion of guide wire followed by passage of dilator(s) through esophagus over guide wire 56933, 59, Esophagogastroduodenoscopy, flexible, transoral; with biopsy, single or multiple CPT copyright 2021 [employer] [place] [employer]. All rights reserved. The codes documented in this report are preliminary and upon sweatband maker review may be revised to meet current compliance requirements. Sumit Bell DO 02/27/2023 7:26:11 AM This report has been signed electronically. Number of Addenda: 0 Note Initiated On: 02/27/2023 7:00 AM
== END 2023-02-27 08:38 | disposition home or self-care (01) ==
LOC: ED 06:11 → SDC 06:19 → ACINP 06:19 → AC 07:39
PROVIDERS: Emergency Provider Emergency Medicine; PCP Student in an Organized Health Care Education/Training Program; Visit Provider Internal Medicine Gastroenterology
PROC: 0DJ08ZZ Inspection of Upper Intestinal Tract, Via Natural or Artificial Opening Endoscopic (ICD-10-PCS; CPT 43235; principal; 2023-02-27 06:10)
DX: T18.128A Food in esophagus causing other injury, initial encounter (principal); K21.9 Gastro-esophageal reflux disease without esophagitis; F12.90 Cannabis use, unspecified, uncomplicated; K44.9 Diaphragmatic hernia without obstruction or gangrene; R13.10 Dysphagia, unspecified; W44.F3XA Food entering into or through a natural orifice, initial encounter
CPT/HCPCS: 43248; 43239; 43247; 71045; 80053; 85025; 85610; 85730; 88305; 88313; 99283; A4216; J1610; J2405; J3490

== ENCOUNTER 2023-06-01 15:30 | Emergency (ER) | payer OTHER, SELFPAY ==
[2023-06-01 15:33] VITALS: BP 158/91; PULSE 76; RESP 16; TEMP 36.2; O2SAT 98; BMI 45.2
[2023-06-01 15:37] VITALS: BP 158/91; PULSE 76; RESP 16; TEMP 36.2; O2SAT 98
--- NOTE | 2023-06-01 15:37 | CT_ITS ---
INDICATION: R/O ESOPHAGEAL TEAR W ORAL CONTRAST EXAMINATION: CT CHEST WITHOUT CONTRAST - CT Chest W/O Contrast Injection TECHNIQUE: Helically acquired images were obtained of the chest. A radiation dose optimization technique was used for this scan. IV Contrast dosage and agent: None. COMPARISON: None. FINDINGS: LUNGS, PLEURA AND LARGE AIRWAYS: Mild bilateral apical scarring. No pleural effusion or thickening. No pneumothorax. THYROID: No thyroid lesions. HEART AND PERICARDIUM: Heart size is normal. No pericardial effusion. CORONARY ARTERIES: Coronary artery calcification VESSELS: Thoracic aorta is not dilated. MEDIASTINUM AND GIO: No mediastinal or hilar adenopathy. Esophagus is unremarkable. No hiatal hernia. UPPER ABDOMEN: No acute pathology. BONES: No suspicious lytic or blastic abnormality. CT/Chest without Contrast IMPRESSION: Negative CT chest without contrast. Electronically Signed: Joshua Muir MD at 16:48 EDT ,
[2023-06-01 16:37] VITALS: BP 158/91; PULSE 76; RESP 16; TEMP 36.2; O2SAT 97
[2023-06-01 17:31] VITALS: BP 137/81; PULSE 79; RESP 16; O2SAT 97
--- NOTE | 2023-06-01 17:34 | EX.ED.DYSGE1 ---
HPI History of Present Illness Chief Complaint: Other, Pain/Inj Informant: patient Narrative Narrative: Patient is a 23-year-old male with history of eosinophilic esophagitis and severe Schatzki ring (had prior esophageal food impaction treated with endoscopy by Dr. Bell) and is on 40 mg Protonix daily presenting with continued poor p.o. intake and chills occultly swallowing. On Saturday, 3 days ago, he that he was eating chicken and food but accidentally ate beef. About an hour later he started feeling shaky, having hot and cold flashes and then vomited a bunch of times. He had multiple episodes of vomiting. He also had multiple soft bowel movements. Denies any blood in his vomit or his stool. Works out of town in [place] and went to a local ER where they gave him Benadryl and Pepcid as well as Solu-Medrol and Zyrtec. He was discharged home to take [id number] Benadryl and Pepcid. He is continue to take his Protonix. He states since then he is not really able to eat anything and just drinks water. Over the past 2 days he has had 2 packets of pretzel and hominis and 1 chicken wrap with nothing else and it. He still has significant sensation of swelling in his esophagus. He also notes that his mouth has been snuff drier lately. Denies any rash. Denies any difficulty breathing or wheezing. No other complaints or concerns at this time. [facility] Medical History GERD (gastroesophageal reflux disease) Home Medications sulfamethoxazole 800 mg-trimethoprim 160 mg tablet 1 tab PO BID #6 TABLETS 05/08/21 [Rx Last Taken Unknown] ondansetron 4 mg disintegrating tablet 4 mg PO Q8H PRN nausea and vomiting #14 tabs 05/12/21 [Rx Last Taken Unknown] promethazine 6.25 mg/5 mL oral syrup 12.5 mg (10 mL) PO QHS PRN nausea and vomiting #473 mL 05/12/21 [Rx Last Taken Unknown] pantoprazole 40 mg tablet,delayed release 40 mg PO BID #60 tabs 02/27/23 [Rx Last Taken Unknown] lidocaine HCl 2 % mucosal solution (Lidocaine Viscous) 5 ml mucous membrane Q4H PRN PRN pain 7 days #100 mL 06/01/23 [Rx Last Taken Unknown] prednisolone sodium phosphate 10 mg/5 mL oral solution 20 mg (10 mL) PO TID 7 days #210 mL 06/01/23 [Rx Last Taken Unknown] Allergy/AdvReac Type Severity Reaction Status Date / Time codeine Allergy Hives Verified 05/08/21 07:27 beef derived (bovine) AdvReac Nausea/Vom/ Verified 05/08/21 07:27 Diarrhea casein AdvReac Nausea/Vom/ Verified 05/08/21 07:27 Diarrhea lactose AdvReac Nausea/Vom/ Verified 05/08/21 07:27 Diarrhea whey AdvReac Nausea/Vom/ Verified 05/08/21 07:27 Diarrhea Family History Other Diabetes Kidney disease Surgical History History of foot surgery History of tonsillectomy Status post labral repair of shoulder Social History Smoking Status: Current every day smoker tobacco type: e-cigarettes alcohol intake: never substance use type: marijuana ROS ROS ED Constitutional Constitutional ED: Denies chills or fever(s) ENT ENT ED: Reports other Details: dry mouth ; Denies rhinorrhea or sore throat Cardiovascular Cardiovascular: Denies chest pain Respiratory/Chest Respiratory/Chest: Denies cough or dyspnea Gastrointestinal Gastrointestinal: Reports diarrhea, nausea, vomiting and other Details: Discomfort with swallowing, difficulty eating ; Denies abdominal pain Musculoskeletal Musculoskeletal: Denies arthralgias or myalgias Neurologic Neurologic: Denies headache(s) Psychiatric Psychiatric: Denies anxiety EXAM Physical Exam Const Vital Signs: 06/01/23 15:33 06/01/23 15:33 06/01/23 15:37 Temperature 97.2 F L 97.2 F L 97.2 F L Temperature Source Oral Oral Oral Pulse Rate 76 76 76 Respiratory Rate 16 16 16 Respiratory Effort Respiratory Pattern Blood Pressure 158/91 H 158/91 H 158/91 H Blood Pressure Mean 113 113 113 Pulse Ox 98 98 98 Oxygen Delivery Method Room Air Room Air Room Air 06/01/23 15:39 06/01/23 16:37 06/01/23 17:31 Temperature 97.2 F L Temperature Source Oral Pulse Rate 76 79 Respiratory Rate 16 16 Respiratory Effort Normal Non-Labored Respiratory Pattern Normal Blood Pressure 158/91 H 137/81 H Blood Pressure Mean 113 99 Pulse Ox 97 97 Oxygen Delivery Method Room Air Room Air 06/01/23 18:30 Temperature 97.8 F Temperature Source Pulse Rate 69 Respiratory Rate 18 Respiratory Effort Respiratory Pattern Blood Pressure 138/62 H Blood Pressure Mean 87 Pulse Ox 100 Oxygen Delivery Method Positive well developed; Negative for unkempt Constitutional Narrative: Thin General Appearance ED: well developed and NAD; Negative for unkempt or pallor HEENT Reports moist mucous membranes Eyes PERRL and EOMs intact bilaterally Neck supple and no JVD Neck Narrative: Normal range of motion of the neck Chest Wall inspection of chest normal Chest Narrative: Very mild tenderness to palpation of the lower sternum, no chest wall crepitus appreciated Resp normal respiratory effort and clear to auscultation bilaterally Cardio regular rate, regular rhythm and no murmurs GI normal to inspection, nondistended, normoactive bowel sounds and non-tender Palpation: soft; Negative for tender or guarding Extremity normal to inspection General Extremety ED: Negative for edema General Extremity: Negative for edema Neuro oriented x3 Sensorium / Orientation: alert Motor Exam: general weakness Psych mental status grossly normal Appearance: Negative for unkempt Skin no rashes or lesions noted and no wounds General Skin Exam: Negative for jaundice or pallor Rashes: No rashes noted MDM MDM MDM Narrative Medical decision making narrative: Patient is evaluated for what sounds like an episode of esophageal swelling. Had previously spoken with his harbor engineer who recommended a CT to rule out Boerhaave syndrome or severe Amee-Westfall tear with microperforation. A CT of the chest with oral contrast obtained which does not show any leakage of fluid, contrast makes it down to the stomach and there is no signs of pneumomediastinum-itis. Patient is nontoxic-appearing. His vital signs are significant for mildly elevated blood pressure. Case is discussed with Dr. Bell GI on-call, who recommends starting the patient on prednisolone 10 mL 3 times daily for 7 days as well as viscous lidocaine every 4 as needed for symptoms. Will continue his Protonix. He has outpatient follow-up in 2 weeks. He also recommends giving him a GI cocktail and a dose of IV Protonix in the emergency room. Patient is agreeable with this plan of care. Given that he is able to tolerate food and drink I do not think he requires admission at this time. History & Record Review Additional record(s) reviewed:: Prior outpatient record (EGD from 03/02-findings distant with eosinophilic esophagitis, severe Schatzki ring that was dilated, removal of food impaction) Radiography Diagnostic Testing: Clinical Impression(s) from Imaging Studies Chest CT 06/01/23 15:37 IMPRESSION: Negative CT chest without contrast. Electronically Signed: Joshua Muir MD at 16:48 EDT , Management Discussion w/another healthcare provider: Hse Advisor Discharge Plan Triage Chief Complaint: Other, Pain/Inj ED Provider: Yanique Pizarro Dx/Rx/DC Orders Clinical Impression: EE (eosinophilic esophagitis), GERD (gastroesophageal reflux disease) Instructions: Eosinophilic Esophagitis (EoE), ED GERD (Adult) Prescriptions: New prednisolone sodium phosphate 10 mg/5 mL solution 20 mg PO TID 7 Days Qty: 210 0RF lidocaine HCl [Lidocaine Viscous] 2 % solution 5 ml mucous membrane Q4H PRN PRN (Reason: pain) 7 Days Qty: 100 0RF No Action sulfamethoxazole-trimethoprim [sulfamethoxazole-trimethoprim] 1 TABLET tablet 1 tab PO BID Qty: 6 0RF ondansetron 4 mg tablet,disintegrating 4 mg PO Q8H PRN (Reason: nausea and vomiting) Qty: 14 0RF promethazine 6.25 mg/5 mL syrup 12.5 mg PO QHS PRN (Reason: nausea and vomiting) Qty: 473 0RF pantoprazole 40 mg tablet,delayed release (DR/EC) 40 mg PO BID Qty: 60 3RF Primary Care Provider: Franck Love Referrals: Franck Love DO [Primary Care Provider] - Friend,DO Sumit [Med Staff - Active Staff] - 1-2 Weeks (as scheduled ) Activity Restrictions/Additional Instructions: You may continue taking daily Zyrtec as well as Benadryl. Please continue taking your twice a day Protonix. Disposition Disposition: Home, Self Care Discharge Date/Time: 06/01/23 19:06
[2023-06-01] MEDS: Mag Hydrox/Al Hydrox/Simeth 30 ML UDC PO (17:57)
[2023-06-01] MEDS: Pantoprazole Sodium 40 MG in 0.9% Normal Saline (100mL MB+) 100 ML 330 MG IV (17:58)
[2023-06-01] MEDS: MethylPREDNISolone 125 MG/2 ML Vial IV (17:58)
[2023-06-01 18:30] VITALS: BP 138/62; PULSE 69; RESP 18; TEMP 36.6; O2SAT 100
== END 2023-06-01 19:06 | disposition home or self-care (01) ==
PROVIDERS: Emergency Provider Emergency Medicine; PCP Student in an Organized Health Care Education/Training Program; Visit Provider Emergency Medicine
DX: K20.0 Eosinophilic esophagitis (principal); Z79.899 Other long term (current) drug therapy
CPT/HCPCS: 71250; 96365; 96375; 99283; A4216

== ENCOUNTER 2023-06-02 20:17 | Emergency (ER) | payer OTHER, SELFPAY ==
[2023-06-02 20:18] VITALS: BP 151/97; PULSE 103; RESP 18; TEMP 36.8; O2SAT 99; BMI 19.9
--- NOTE | 2023-06-02 20:37 | EDS_ITS ---
HPI <PARAMJIT Lowe - Last Filed: 06/02/23 21:58> History of Present Illness Chief Complaint: Foreign Body Narrative Narrative: Patient is a 23-year-old male who presents to the emergency department for feeling of tightness in his esophagus, difficulty swallowing. Patient does have history of a send for like esophagitis, he is currently being worked up and sees Dr. Bell for a upper GI scope in 2 weeks. Patient states that he ate chicken today, after he ate, about 1 hour after he felt that he had a swelling like sensation in his esophagus had difficulty swallowing. Patient states this does make him anxious, and he feels like he is having difficulty swallowing. Patient states he then feels intermittently shortness of breath. Patient is currently on prednisone, as well as Protonix. Patient had a CT scan of the chest yesterday that was negative. Patient is here for reevaluation [facility] <PARAMJIT Lowe - Last Filed: 06/02/23 21:58> [facility] Medical History GERD (gastroesophageal reflux disease) Home Medications pantoprazole 40 mg tablet,delayed release 40 mg PO BID #60 tabs 02/27/23 [Rx Last Taken Unknown] lidocaine HCl 2 % mucosal solution (Lidocaine Viscous) 5 ml mucous membrane Q4H PRN PRN pain 7 days #100 mL 06/01/23 [Rx Last Taken Unknown] prednisolone sodium phosphate 10 mg/5 mL oral solution 20 mg (10 mL) PO TID 7 days #210 mL 06/01/23 [Rx Last Taken Unknown] Allergy/AdvReac Type Severity Reaction Status Date / Time codeine Allergy Hives Verified 06/02/23 20:17 beef derived (bovine) AdvReac Nausea/Vom/ Verified 06/02/23 20:17 Diarrhea casein AdvReac Nausea/Vom/ Verified 06/02/23 20:17 Diarrhea lactose AdvReac Nausea/Vom/ Verified 06/02/23 20:17 Diarrhea whey AdvReac Nausea/Vom/ Verified 06/02/23 20:17 Diarrhea Family History Other Diabetes Kidney disease Surgical History History of foot surgery History of tonsillectomy Status post labral repair of shoulder Social History Smoking Status: Current every day smoker tobacco type: e-cigarettes alcohol intake: never substance use type: marijuana ROS <PARAMJIT Lowe - Last Filed: 06/02/23 21:58> ROS ED ROS Narrative Constitutional: Negative for fever, chills, weight loss, weakness Eyes: Negative for vision loss, vision change, double vision ENT: Negative for any ear pain, congestion. Positive for sore throat, difficulty swallowing Cardiovascular: Negative for any chest pain, tightness, palpitations Respiratory: Negative for any cough, sputum production, hemoptysis, dyspnea, dyspnea on exertion, orthopnea Gastrointestinal: Negative for any abdominal pain, nausea, vomiting, diarrhea, constipation, blood in stool, blood in vomit : Negative for any urinary frequency, dysuria, retention, blood in urine Muscle skeletal: Negative for any neck pain, back pain Neurological: Negative for any headache, syncope, dizziness Skin: Negative for any rashes, itching, abrasions, lacerations Psychiatric: Negative for any depression, stress, suicidal ideation, homicidal ideation. Positive for anxiety Hematologic: Negative for any excessive bruising, easy bleeding EXAM <PARAMJIT Lowe - Last Filed: 06/02/23 21:58> Physical Exam Narrative Exam Narrative: Vital signs reviewed. Patient is speaking pleat sentences, his voice is normal. Patient is able to swallow his saliva. He was able to drink water. HEET: Head normocephalic atraumatic, TMs clear bilaterally. Posterior pharynx is clear, moist mucous membranes. Nares clear bilaterally. Neck: Supple with no lymphadenopathy or tenderness. No signs of meningismus. Cardiac: Regular rate and rhythm no murmurs gallops or rubs, equal peripheral pulses bilaterally. Respiratory: Lungs clear to auscultation bilaterally. No chest tenderness. Abdomen: Soft, nontender, nondistended. No abdominal bruit or pulsatile masses. No hepatosplenomegaly Extremities: No peripheral edema, no signs of gross trauma or deformity. Active full range of motion of all extremities. Neuro: Cranial nerves II through XII intact, no focal neurological deficits. Skin: Clean dry and intact with no rash, purpura, petechiae, vesicles or pustules. Backs/flank: No CVA tenderness, no midline spinal tenderness, no deformity. Psych: Normal mood and affect. No SI, HI or acute psychosis. Const Vital Signs: 06/02/23 20:18 06/02/23 20:28 Temperature 98.2 F Temperature Source Temporal Pulse Rate 103 H Respiratory Rate 18 Respiratory Effort Normal Non-Labored Respiratory Pattern Normal Blood Pressure 151/97 H Blood Pressure Mean 115 Pulse Ox 99 <Dr. Humza Espino MD - Last Filed: 06/02/23 22:02> Physical Exam Const Vital Signs: 06/02/23 20:18 06/02/23 20:28 Temperature 98.2 F Temperature Source Temporal Pulse Rate 103 H Respiratory Rate 18 Respiratory Effort Normal Non-Labored Respiratory Pattern Normal Blood Pressure 151/97 H Blood Pressure Mean 115 Pulse Ox 99 MDM <PARAMJIT Lowe - Last Filed: 06/02/23 21:58> [facility] Treatment and Re-Evaluation :: Patient appears to be in no obvious respiratory distress, patient's vital signs are stable, patient appears nontoxic. Presenting to the emergency department with complaints of sore throat, difficulty swallowing, does have history of this. I did look at the patient's past visit from yesterday, patient received laboratory values, CT scan of the chest that was negative. Patient is currently on prednisone and is currently waiting to see Dr. Bell. Differential diagnosis includes however is not limited to: Includes anaphylaxis, esophagitis, foreign body impaction, Amee-Westfall tear. Patient's case will be reviewed by the GI specialist on-call. The GI is aware of this patient. At this time, the patient is in no obvious distress. The patient's vital signs are stable. The patient is drinking fluids and maintaining his airway. At this time, the patient will follow-up closely with Dr. Bell who is a GI specialist. The patient, the patient's mother is happy. All questions were answered, patient stable for discharge. <Dr. Humza Espino MD - Last Filed: 06/02/23 22:02> [facility] Narrative Medical decision making narrative: I have personally performed a face to face assessment of the patient and have reviewed the RONAK Note. I performed a substantive portion of the visit including all aspects of the following. My espinoza findings include: History is 23-year-old male history of difficulty swallowing. Was seen last night had a CAT scan and labs which were unremarkable. Currently he is on prednisolone for esophageal inflammation, reflux meds and viscous lidocaine. As she states he feels somewhat improved from the other day. Exam is [well-appearing 21-year-old male. Vital signs stable afebrile. H EENT exam normal. Posterior pharynx normal. No trouble swallowing or breathing. Lungs clear. Heart regular rhythm. No murmur. Abdomen soft nontender. Moving all 4 extremities. Neurologically is awake and alert. No focal motor deficits. He is anxious.] Medical Decision Making [I reviewed the labs and CAT scan from the other day. Spoke to Dr. Bell. Patient will continue his current course of steroids, reflux meds and viscous lidocaine. Outpatient follow-up with Dr. Bell of GI tomorrow. He may be able to get endoscopy this week if necessary.] Other additions or changes: [None] History & Record Review Discussion w/independent historian: Patient and Family Additional record(s) reviewed:: Prior inpatient record, Prior outpatient record, Prior ED visit and Prior labs Discharge Plan Triage Chief Complaint: Foreign Body ED Midlevel Provider: Lebron Jackson ED Provider: Humza Espino Dx/Rx/DC Orders Clinical Impression: Esophagitis Instructions: Esophagitis, Anatomy of the Digestive System Prescriptions: No Action pantoprazole 40 mg tablet,delayed release (DR/EC) 40 mg PO BID Qty: 60 3RF prednisolone sodium phosphate 10 mg/5 mL solution 20 mg PO TID 7 Days Qty: 210 0RF lidocaine HCl [Lidocaine Viscous] 2 % solution 5 ml mucous membrane Q4H PRN PRN (Reason: pain) 7 Days Qty: 100 0RF Primary Care Provider: Franck Love Referrals: Franck Love DO [Primary Care Provider] - Sumit Bell DO [Med Staff - Active Staff] - Activity Restrictions/Additional Instructions: You will follow-up with Dr. Bell outpatient, you will use a soft diet, liquid diet, continue taking your medications. Disposition Disposition: Home, Self Care
[2023-06-02 22:04] VITALS: BP 138/68; PULSE 89; RESP 18; TEMP 36.7; O2SAT 100
== END 2023-06-02 22:05 | disposition home or self-care (01) ==
PROVIDERS: Emergency Provider Emergency Medicine; PCP Student in an Organized Health Care Education/Training Program; Visit Provider Emergency Medicine
DX: K21.00 Gastro-esophageal reflux disease with esophagitis, without bleeding (principal); Z79.899 Other long term (current) drug therapy
CPT/HCPCS: 99282; A4216

== ENCOUNTER 2023-06-03 16:00 | Inpatient (IN) | payer OTHER, SELFPAY ==
[2023-06-03 16:02] VITALS: BP 138/93; PULSE 82; RESP 16; TEMP 36.4; O2SAT 98; BMI 19.9
--- NOTE | 2023-06-03 16:27 | CT_ITS ---
INDICATION: swelling EXAMINATION: CT NECK WITH CONTRAST - CT Soft Tissue Neck W/ Contrast Injection TECHNIQUE: Helically acquired images were obtained of the neck following IV contrast. A radiation dose optimization technique was used for this scan. IV Contrast dosage and agent: RADIATION DOSAGE (If Supplied By Facility): CTDIvol = ( 10.90 ) mGy, DLP = ( 437.30 ) mGycm COMPARISON: FINDINGS: Mild right facial subcutaneous edema. NASOPHARYNX: Unremarkable. SUPRAHYOID NECK: Unremarkable oropharynx, oral cavity, parapharyngeal space, and retropharyngeal space. There is residual noted in the vallecula. INFRAHYOID NECK: Unremarkable larynx, hypopharynx, and supraglottis. THYROID: No focal lesions. SALIVARY GLANDS: Unremarkable. LYMPH NODES: No cervical or supraclavicular lymphadenopathy. VASCULAR STRUCTURES: Unremarkable. VISUALIZED PORTIONS OF THE ORBITS, PARANASAL SINUSES, MASTOID AIR CELLS AND SKULL BASE: Unremarkable. BONES: Unremarkable. THORACIC INLET: Clear lung apices. CT/Soft Tissue Neck WITH Contrast IMPRESSION: Mild right facial subcutaneous edema. There is residual noted in the vallecula. Electronically Signed: Pramod Shaw DO at 17:47 EDT Reading Location ID and State: [facility] / [place] Tel [phone], Service support ,
--- NOTE | 2023-06-03 16:29 | EX.ED.DYSGE1 ---
HPI History of Present Illness Chief Complaint: Sore Throat Informant: patient and family Narrative Narrative: Patient returns to the ER secondary to difficulty swallowing. He has a history of eosinophilic esophagitis as well as Schatzki's ring. He had a food bolus that required clearance in February. Over the past week or so he has had increasing difficulty swallowing and feeling like things are getting stuck. He was in the ER the last 2 days. He is currently on prednisolone liquid along with lidocaine liquid. He is even having trouble today swallowing water. He is following with Dr. Bell' when they called the office was advised to come back to the emergency room. Family does note patient has lost 11 pounds since May 28. [facility] Medical History (Updated 06/03/23 @ 19:[address] Claudia Sheikh MD) EE (eosinophilic esophagitis) GERD (gastroesophageal reflux disease) Schatzki's ring Home Medications pantoprazole 40 mg tablet,delayed release 40 mg PO BID #60 tabs 02/27/23 [Rx Last Taken Unknown] Allergy/AdvReac Type Severity Reaction Status Date / Time codeine Allergy Hives Verified 06/03/23 16:01 beef derived (bovine) AdvReac Nausea/Vom/ Verified 06/03/23 16:01 Diarrhea casein AdvReac Nausea/Vom/ Verified 06/03/23 16:01 Diarrhea lactose AdvReac Nausea/Vom/ Verified 06/03/23 16:01 Diarrhea whey AdvReac Nausea/Vom/ Verified 06/03/23 16:01 Diarrhea Family History Other Diabetes Kidney disease Surgical History History of foot surgery History of tonsillectomy Status post labral repair of shoulder Social History Smoking Status: Current every day smoker tobacco type: e-cigarettes alcohol intake: never substance use type: marijuana ROS ROS ED Constitutional Constitutional ED: Denies chills or fever(s) Eyes Eyes: Denies change in vision or discharge from eye(s) ENT ENT ED: Reports sore throat; Denies discharge from eye(s) or rhinorrhea Cardiovascular Cardiovascular: Reports chest pain; Denies palpitations Respiratory/Chest Respiratory/Chest: Denies cough or dyspnea Gastrointestinal Gastrointestinal: Reports nausea; Denies abdominal pain, diarrhea or vomiting Genitourinary Genitourinary ED: Denies dysuria Musculoskeletal Musculoskeletal: Denies back pain or extremity pain Integumentary Denies Abrasions or rash Neurologic Neurologic: Denies headache(s) or weakness Allergic/Immunologic Allergic/Immunologic ED: Denies lip swelling or urticaria EXAM Physical Exam Const Vital Signs: 06/03/23 16:02 06/03/23 18:01 Temperature 97.6 F L 96.7 F L Temperature Source Temporal Temporal Pulse Rate 82 61 Respiratory Rate 16 16 Blood Pressure 138/93 H 115/75 Blood Pressure Mean 108 88 Pulse Ox 98 100 Oxygen Delivery Method Room Air Room Air Positive well nourished and well developed General Appearance ED: well developed HEENT Reports dry mucous membranes Mouth ED: Yes dry mucous membranes Mouth: dry mucous membranes Eyes EOMs intact bilaterally Chest Wall inspection of chest normal and palpation of chest normal Resp normal respiratory effort and clear to auscultation bilaterally Cardio regular rate and regular rhythm GI non-tender Palpation: soft Extremity normal to inspection Neuro oriented x3 and no sensory deficits noted Motor Exam: strength 5/5 throughout Psych Mood & Affect: anxious Skin no rashes or lesions noted MDM MDM MDM Narrative Medical decision making narrative: IV line established. Labwork obtained to evaluate for leukocytosis, anemia, and electrolyte derangement. Patient did have some what worsening symptoms after eating chicken yesterday. He has CT of the chest performed the day prior to this. He feels that he has throat tightness up around his Shun's apple. I will obtain a CT of the neck as well as a chest x-ray at this time to ensure no obvious areas of swelling or obstruction. History & Record Review Discussion w/independent historian: Patient and Family Additional record(s) reviewed:: Prior ED visit and Prior labs Lab Data Attestation: I reviewed the patient's lab results. Labs: Laboratory Results - last 24 hr 06/03/23 16:45 WBC 7.2 RBC 5.72 Hgb 16.1 Hct 46.9 MCV 82.0 MCH 28.1 MCHC 34.3 RDW Std Deviation 36.6 RDW Coeff of Shahbaz 12.2 Plt Count 227 MPV 12.4 H Immature Gran % (Auto) 0.300 Neut % (Auto) 87.1 H Lymph % (Auto) 10.7 L [place] % (Auto) 1.9 Eos % (Auto) 0.0 Baso % (Auto) 0.0 Absolute Neuts (auto) 6.3 Absolute Lymphs (auto) 0.77 L Nucleated RBC % 0 ESR 2 Sodium 137 Potassium 4.4 Chloride 105 Carbon Dioxide 28.0 Anion Gap 4 L BUN 38 H Creatinine 1.70 H Estim Creat Clear Calc 57.28 Est GFR (MDRD) Af Amer 65 Est GFR (MDRD) Non-Af 54 L BUN/Creatinine Ratio 22.4 H Glucose 121 H Calcium 8.8 C-React Prot Ext Range < 2.90 Radiography Diagnostic Testing: Clinical Impression(s) from Imaging Studies Soft Tissue Neck CT 06/03/23 16:27 IMPRESSION: Mild right facial subcutaneous edema. There is residual noted in the vallecula. Electronically Signed: Pramod Shaw DO at 17:47 EDT , Chest X-Ray 06/03/23 17:00 IMPRESSION: No radiographic evidence of acute cardiopulmonary disease. Electronically Signed: Pramod Shaw DO at 17:21 EDT , Treatment and Re-Evaluation :: CBC was normal white count 7.2 with a hemoglobin of 16.1. He does have a slight left shift with 87% neutrophils. Chemistry studies reveal a BUN of 38 and a creatinine of 1.70. Previous creatinine from February was 1.28. Chest x-ray per my interpretation reveals no obvious abnormalities. Radiology interpretation reviewed and agrees. CT scan of the neck with contrast reveals mild right facial subcutaneous edema. No evidence of foreign body or proximal esophageal wall/pharynx abnormality. Patient has been given a nicotine patch here. He has been given IV fluids. I did speak with Dr. Bell. He asked that the patient be given 40 mg of IV Solu-Medrol daily and initial dose has been ordered here. He also would like the patient to be on IV PPI twice a day. Protonix is ordered. Patient is to be kept n.p.o. after midnight for scope. Discharge Plan Triage Chief Complaint: Sore Throat ED Provider: Claudia Sheikh Dx/Rx/DC Orders Clinical Impression: RICARDO (acute kidney injury), Dysphagia Prescriptions: No Action pantoprazole 40 mg tablet,delayed release (DR/EC) 40 mg PO BID Qty: 60 3RF Primary Care Provider: Franck Love Referrals: Franck Love DO [Primary Care Provider] - Disposition Disposition: Acute Care Hospital [facility]
[2023-06-03] MEDS: 0.9% Normal Saline (1000mL) 1,000 ML 150 ML IV ×2 (16:49→20:38)
[2023-06-03 16:56] LABS: Absolute Lymphocyte Count 0.77 X10^3/uL (0.83-4.51); Absolute Neutrophil Count 6.3 X10^3/uL (2.0-7.7); Hematocrit 46.9 % (40-54); Hemoglobin 16.1 g/dL (13.0-16.5); Lymphocyte # 0.77 X10^3/ul (0.83-4.51); Lymphocyte % 10.7 % (19-41); Mean Corp Hgb Conc 34.3 g/dL (32-36); Mean Corpuscular Hgb 28.1 pg (27.0-32.0); Mean Platelet Vol. 12.4 fl (6.2-12.0); Monocyte# 0.14 X10^3/uL; Monocyte% 1.9 % (0-10); NRBC Flagged by Analyzer 0 % (0-5); Neutrophil # 6.27 X10^3/uL (2.7-7.7); Neutrophil % 87.1 % (47-70); Platelet Count 227 K/mm3 (150-450); RBC Distribution Width CV 12.2 % (11.6-14.6); RBC Distribution Width SD 36.6 fl (35.1-43.9); Red Blood Count 5.72 M/mm3 (4.6-6.2); White Blood Count 7.2 K/mm3 (4.4-11.0)
--- NOTE | 2023-06-03 17:00 | RAD_ITS ---
INDICATION: pain EXAMINATION/TECHNIQUE: X-RAY - XR Chest 1 View COMPARISON: FINDINGS: LINES/DEVICES: None. LUNGS: No consolidation, edema or effusion. No pneumothorax. MEDIASTINUM AND CARDIOVASCULAR STRUCTURES: Cardiac silhouette not enlarged. Central airways and mediastinal contour are unremarkable. BONES AND SOFT TISSUES: Unremarkable. RAD/Chest 1 View (Portable) IMPRESSION: No radiographic evidence of acute cardiopulmonary disease. Electronically Signed: Pramod Shaw DO at 17:21 EDT ,
[2023-06-03 17:15] LABS: Anion Gap 4 (5-15); BUN 38 mg/dL (7-18); BUN/Creat Ratio 22.4 RATIO (10-20); CRP < 2.90 mg/L (0.0-3.0); Calcium,Total 8.8 mg/dL (8.5-10.1); Chloride 105 mmol/L (98-107); EST Glomerular Filtration Rate 54 mL/min (>60); Est Glom Filt Rate - Afr Amer 65 mL/min (>60); Estimated Creatinine Clearance 57.28 ml/min; Glucose 121 mg/dL (74-106); Potassium 4.4 mmol/L (3.5-5.1); Sodium Level 137 mmol/L (136-145)
[2023-06-03 17:16] LABS: Erythrocyte Sedimentation Rate 2 mm/hr (0-20)
[2023-06-03 18:01] VITALS: BP 115/75; PULSE 61; RESP 16; TEMP 35.9; O2SAT 100
--- NOTE | 2023-06-03 19:13 | PCM.HP.STD ---
[facility] - General General Date of Admission: 06/03/23 Date of Service: 06/03/23 Chief Complaint: Sore Throat and Difficulty Swallowing. HPI Narrative WING CALL, is a 23 M with a past medical history of eosinophilic esophagitis with Schatzki's ring, severe GERD, history of tonsillectomy, history of tobacco abuse, history of cannabis use and history of food bolus that requires clearance and February 2023; followed by Dr. Bell of gastroenterology who presents to [facility] ER complaining of sore throat and difficulty swallowing. Mr. Call reports his symptoms began approximately 1 week prior to admission with progressive difficulty swallowing and a sensation that things were getting stuck in his esophagus once again. He has also been in the ER for the past 2 days and is currently on prednisolone liquid along with lidocaine liquid but is still having trouble swallowing and today now has difficulty even swallowing water with a sensation of throat tightness around his Shun's apple. His mother is an RN in the ER at this hospital and she and the patient contacted Dr. Bell who recommended they come back to the ER today for further evaluation and treatment. He also admits to an unintentional ~11 pound weight loss since May 29, 2023 but he denies associated fever, chills, nausea or vomiting. In the ER his CT scan of the neck revealed mild right facial subcutaneous edema with residual noted in the vallecula and his chest x-ray was negative for acute pathologic changes with no evidence of foreign body and with Dr. Bell recommending patient be started on IV Solu-Medrol 40 mg daily in addition to Protonix 40 mg IV twice daily with patient to be kept n.p.o. overnight with plan for EGD in the a.m. complicated by laboratory evidence of suspected acute renal failure with elevated serum creatinine of 1.7 mg/dL (up from his baseline of 1.28 mg/dL last admission) and he was then admitted to the general medical floor for ongoing care for stay that is expected to be greater than 48 hours. [facility] Medical History Anxiety EE (eosinophilic esophagitis) GERD (gastroesophageal reflux disease) Schatzki's ring Smoker Home Medications pantoprazole 40 mg tablet,delayed release 40 mg PO BID #60 tabs 02/27/23 [Rx Last Taken Unknown] Allergy/AdvReac Type Severity Reaction Status Date / Time codeine Allergy Hives Verified 06/03/23 16:01 beef derived (bovine) AdvReac Nausea/Vom/ Verified 06/03/23 16:01 Diarrhea casein AdvReac Nausea/Vom/ Verified 06/03/23 16:01 Diarrhea lactose AdvReac Nausea/Vom/ Verified 06/03/23 16:01 Diarrhea whey AdvReac Nausea/Vom/ Verified 06/03/23 16:01 Diarrhea Family History Other Diabetes Kidney disease Surgical History History of foot surgery History of tonsillectomy Status post labral repair of shoulder Social History Smoking Status: Current every day smoker tobacco type: e-cigarettes alcohol intake: never substance use type: marijuana ROS ROS Narrative Review of systems: General: Patient denies fever or chills. HENT: Patient admits to sore throat and a sensation of things getting stuck high up in his esophagus. EYES: Denies changes in vision or discharge from eyes. Resp: Denies cough, denies shortness of breath Cardiac: Denies chest pain or palpitations. GI: Denies abdominal pain, denies changes in bowel, had some nausea but denies vomiting : Denies changes in urination Extremity: Denies swelling Musculoskeletal: Feels somewhat generally weak and unwell with a recent unintentional ~11 pound weight loss. Neuro: Denies any numbness/tingling, headache, paresthesias or focal neurologic deficits. Heme: Denies any bleeding or bruising Skin: Denies rashes Psychiatric: No complaints voiced related to uncontrolled depression or anxiety. Endocrine: No polyuria, polydipsia or polyphagia. The rest of the 14 point ROS was negative except for positives in HPI. Vital Signs Vital Signs Vital Signs: 06/03/23 16:02 06/03/23 18:01 Temperature 97.6 F L 96.7 F L Temperature Source Temporal Temporal Pulse Rate 82 61 Respiratory Rate 16 16 Blood Pressure 138/93 H 115/75 Blood Pressure Mean 108 88 Pulse Ox 98 100 Oxygen Delivery Method Room Air Room Air Weight Weight: 131 lb Body Mass Index (BMI) 19.9 Physical Exam Const alert, oriented x3 and average body habitus Constitutional Narrative: Patient appears to be acutely ill with moderate anxiety. General Appearance: cooperative HEENT normocephalic, head/scalp atraumatic and hearing grossly normal bilaterally HEENT Narrative: Mucous membranes dry. Eyes PERRL and EOMs intact bilaterally Neck no lymphadenopathy and supple Resp normal respiratory effort, no retractions, no use of accessory muscles and clear to auscultation bilaterally Cardio regular rate and regular rhythm GI normal to inspection, nondistended, normoactive bowel sounds, soft to palpation, non-tender and non-distended Extremity normal to inspection and full ROM Skin Skin Narrative: Patient has no evidence of rash or abscess at this time. Neuro oriented x3, CN's II-XII intact bilaterally, moves all extremities and no focal motor deficits Sensorium / Orientation: awake, alert, oriented to person, oriented to place and oriented to time Speech: speech normal Motor Exam: strength 5/5 throughout Psych Psych Narrative: Patient is notably anxious. Mood & Affect: anxious Results Medical Records Data Attestation: I reviewed the patient's medical records Lab / Micro Data Attestation: I reviewed the patient's lab results. 06/03/23 16:45 06/03/23 16:45 Labs: Laboratory Results - last 24 hr 06/03/23 16:45: WBC 7.2, RBC 5.72, Hgb 16.1, Hct 46.9, MCV 82.0, MCH 28.1, MCHC 34.3, RDW Std Deviation 36.6, RDW Coeff of Shahbaz 12.2, Plt Count 227, MPV 12.4 H, Immature Gran % (Auto) 0.300, Neut % (Auto) 87.1 H, Lymph % (Auto) 10.7 L, [place] % (Auto) 1.9, Eos % (Auto) 0.0, Baso % (Auto) 0.0, Absolute Neuts (auto) 6.3, Absolute Lymphs (auto) 0.77 L, Nucleated RBC % 0, ESR 2, Sodium 137, Potassium 4.4, Chloride 105, Carbon Dioxide 28.0, Anion Gap 4 L, BUN 38 H, Creatinine 1.70 H, Estim Creat Clear Calc 57.28, Est GFR (MDRD) Af Amer 65, Est GFR (MDRD) Non-Af 54 L, BUN/Creatinine Ratio 22.4 H, Glucose 121 H, Calcium 8.8, C-React Prot Ext Range < 2.90 Imaging Radiology Impression Soft Tissue Neck CT 06/03/23 16:27 IMPRESSION: Mild right facial subcutaneous edema. There is residual noted in the vallecula. Electronically Signed: Pramod Shaw DO at 17:47 EDT , Chest X-Ray 06/03/23 17:00 IMPRESSION: No radiographic evidence of acute cardiopulmonary disease. Electronically Signed: Pramod Shaw at 17:21 EDT , Assessment & Plan Assessment/Plan (1) EE (eosinophilic esophagitis): (2) Dysphagia: QUALIFIERS: Dysphagia type: unspecified Qualified Code(s): R13.10 - Dysphagia, unspecified (3) ARF (acute renal failure): QUALIFIERS: Acute renal failure type: unspecified Qualified Code(s): N17.9 - Acute kidney failure, unspecified (4) GERD (gastroesophageal reflux disease): QUALIFIERS: Esophagitis presence: with esophagitis Esophagitis bleeding: without hemorrhage Qualified Code(s): K21.00 - Gastro-esophageal reflux disease with esophagitis, without bleeding PLAN: Plan 1. Severe dysphagia with sore throat and ~11 pound weight loss over the past 5 days likely due to flare of eosinophilic esophagitis with Schatzki's ring and severe GERD with history of food bolus that required disimpaction in February 2023 - Admit to general medical floor and keep strict n.p.o. on aspiration precautions. Continue IV Solu-Medrol and IV Protonix as per GI recommendations. Give morphine IV as needed for severe level 6-10 out of 10 pain. Check prealbumin to assess for possible underlying protein calorie malnutrition. Give one dose of IV Ativan once for significant anxiety. Finally, we will consult Dr. Bell of gastroenterology to see this patient on rounds in the a.m. for further recommendations regarding EGD without appreciated in advance. 2. ARF; likely due to dehydration arising from #1 with elevated creatinine of 1.7 mg/dL present on admission (up from his baseline of 1.28 mg/dL during his last admission) - Continue aggressive volume resuscitation with normal saline at 150 cc/h and recheck BMP in the a.m. to ensure improvement. 3. Tobacco abuse - Tobacco cessation will be strongly encouraged with nicotine patch offered to control cravings. 4. History of cannabis use - Cannabis cessation will be strongly encouraged. 5. History of tonsillectomy - Noted. 6. DVT prophylaxis - Patient is relatively low risk but SCDs will be placed. Blood thinners will be relatively contraindicated with impending EGD. Total time: Approximately 55 minutes. Charges/Coding Visit Charges Inpatient E&M: 71510 Init Hosp L2
[2023-06-03] MEDS: Pantoprazole Sodium 40 MG in 0.9% Normal Saline (100mL MB+) 100 ML 330 MG IV (19:35)
[2023-06-03 19:45] VITALS: BP 127/76; PULSE 67; RESP 16; TEMP 36.1; O2SAT 98
[2023-06-03 20:00] VITALS: BMI 19.1
[2023-06-03 20:03] VITALS: O2SAT 98
[2023-06-03] MEDS: LORazepam 2 MG/ML Syringe 1 MG IV (20:37)
[2023-06-03] MEDS: 0.9% Saline Lock 10 ML Syringe IV (20:38)
[2023-06-03 20:53] LABS: Prealbumin 41.3 mg/dL (20.0-40.0)
--- NOTE | 2023-06-03 23:54 | EX.PCM.CON.G ---
HPI Consult Data Date of Consult: 06/03/23 HPI Narrative Reason for Consultation: dysphagia HPI Narrative: WING CALL, is a 23 M who presents with severe dysphagia. He has a past medical history of eosinophilic esophagitis with Schatzki's ring, severe GERD, history of tonsillectomy, history of tobacco abuse, history of cannabis use and history of food bolus that requires clearance and February 2023; followed by Dr. Bell of gastroenterology who presents to [facility] ER complaining of sore throat and difficulty swallowing. He reports his symptoms began approximately 1 week prior to admission with progressive difficulty swallowing and a sensation that things were getting stuck in his esophagus once again. He has also been in the ER for the past 2 days and is currently on prednisolone liquid along with lidocaine liquid but is still having trouble swallowing and today now has difficulty even swallowing water with a sensation of throat tightness around his Shun's apple. His mother is an RN in the ER at this hospital and she and the patient contacted Dr. Bell who recommended they come back to the ER today for further evaluation and treatment. He also admits to an unintentional ~11 pound weight loss since May 29, 2023 but he denies associated fever, chills, nausea or vomiting. In the ER his CT scan of the neck revealed mild right facial subcutaneous edema with residual noted in the vallecula and his chest x-ray was negative for acute pathologic changes with no evidence of foreign body and I recommend patient be started on IV Solu-Medrol 40 mg daily in addition to Protonix 40 mg IV twice daily with patient to be kept n.p.o. overnight with plan for EGD in the a.m. complicated by laboratory evidence of suspected acute renal failure with elevated serum creatinine of 1.7 mg/dL (up from his baseline of 1.28 mg/dL last admission) and he was then admitted to the general medical floor for ongoing care for stay that is expected to be greater than 48 hours. [facility] Medical History Anxiety EE (eosinophilic esophagitis) GERD (gastroesophageal reflux disease) Schatzki's ring Smoker Home Medications pantoprazole 40 mg tablet,delayed release 40 mg PO BID #60 tabs 02/27/23 [Rx Last Taken Unknown] Allergy/AdvReac Type Severity Reaction Status Date / Time codeine Allergy Hives Verified 06/03/23 16:01 beef derived (bovine) AdvReac Nausea/Vom/ Verified 06/03/23 16:01 Diarrhea casein AdvReac Nausea/Vom/ Verified 06/03/23 16:01 Diarrhea lactose AdvReac Nausea/Vom/ Verified 06/03/23 16:01 Diarrhea whey AdvReac Nausea/Vom/ Verified 06/03/23 16:01 Diarrhea Family History Other Diabetes Kidney disease Surgical History History of foot surgery History of tonsillectomy Status post labral repair of shoulder Social History Smoking Status: Current every day smoker tobacco type: e-cigarettes alcohol intake: never substance use type: marijuana ROS ROS Narrative Review of systems: General: Patient denies fever or chills. HENT: Patient admits to sore throat and a sensation of things getting stuck high up in his esophagus. EYES: Denies changes in vision or discharge from eyes. Resp: Denies cough, denies shortness of breath Cardiac: Denies chest pain or palpitations. GI: Denies abdominal pain, denies changes in bowel, had some nausea but denies vomiting : Denies changes in urination Extremity: Denies swelling Musculoskeletal: Feels somewhat generally weak and unwell with a recent unintentional ~11 pound weight loss. Neuro: Denies any numbness/tingling, headache, paresthesias or focal neurologic deficits. Heme: Denies any bleeding or bruising Skin: Denies rashes Psychiatric: No complaints voiced related to uncontrolled depression or anxiety. Endocrine: No polyuria, polydipsia or polyphagia. The rest of the 14 point ROS was negative except for positives in HPI. Physical Exam Narrative General: Alert, Oriented x3, Cooperative, No apparent distress HEENT: Atraumatic, PERRLA, EOMI, Normocephalic Oral: Moist Mucosa Neck: Supple, No JVD Lungs: Clear to auscultation, Normal air movement, No rhonchi, No wheeze, No rales Cardiovascular: Regular rate, Regular Rhythm, Normal S1, Normal S2, No murmurs Abdomen: Soft, Non Tender, Non-Distended, No Hepato-splenomegaly Extremities: No edema, Capillary Refill Less than 3 Seconds Skin: No rashes, No breakdown Musculoskeletal: No Tenderness to Palpation of Joints or Extremities Neurological: No focal neurological deficits, Motor Exam 5/5 strength throughout, Sensory exam intact to light touch and pain Psych/Mental Status: Normal Affect, Appropriate Lab / Micro Data 06/04/23 05:30 06/04/23 05:30 Labs: Laboratory Results - last 24 hr 06/03/23 16:45: WBC 7.2, RBC 5.72, Hgb 16.1, Hct 46.9, MCV 82.0, MCH 28.1, MCHC 34.3, RDW Std Deviation 36.6, RDW Coeff of Shahbaz 12.2, Plt Count 227, MPV 12.4 H, Immature Gran % (Auto) 0.300, Neut % (Auto) 87.1 H, Lymph % (Auto) 10.7 L, [place] % (Auto) 1.9, Eos % (Auto) 0.0, Baso % (Auto) 0.0, Absolute Neuts (auto) 6.3, Absolute Lymphs (auto) 0.77 L, Nucleated RBC % 0, ESR 2, Sodium 137, Potassium 4.4, Chloride 105, Carbon Dioxide 28.0, Anion Gap 4 L, BUN 38 H, Creatinine 1.70 H, Estim Creat Clear Calc 57.28, Est GFR (MDRD) Af Amer 65, Est GFR (MDRD) Non-Af 54 L, BUN/Creatinine Ratio 22.4 H, Glucose 121 H, Calcium 8.8, C-React Prot Ext Range < 2.90, Prealbumin 41.3 H 06/04/23 05:30: WBC 7.9, RBC 4.92, Hgb 13.9, Hct 41.0, MCV 83.3, MCH 28.3, MCHC 33.9, RDW Std Deviation 37.3, RDW Coeff of Shahbaz 12.2, Plt Count 196, MPV 12.6 H, Immature Gran % (Auto) 0.600, Neut % (Auto) 73.2 H, Lymph % (Auto) 21.0, [place] % (Auto) 5.1, Eos % (Auto) 0.0, Baso % (Auto) 0.1, Absolute Neuts (auto) 5.8, Absolute Lymphs (auto) 1.65, Nucleated RBC % 0, Sodium 141, Potassium 4.8, Chloride 111 H, Carbon Dioxide 26.0, Anion Gap 4 L, BUN 31 H, Creatinine 1.35 H, Estim Creat Clear Calc 69.49, Est GFR (MDRD) Af Amer 85, Est GFR (MDRD) Non-Af 70, BUN/Creatinine Ratio 23.0 H, Glucose 104, Calcium 8.4 L, Phosphorus 5.2 H, Magnesium 2.6, Total Bilirubin 0.70, AST 7 L, ALT 11 L, Alkaline Phosphatase 55, Total Protein 5.0 L, Albumin 2.8 L, Globulin 2.2, Albumin/Globulin Ratio 1.3, TSH 0.65 Imaging Radiology Impression Soft Tissue Neck CT 06/03/23 16:27 IMPRESSION: Mild right facial subcutaneous edema. There is residual noted in the vallecula. Electronically Signed: Pramod Shaw DO at 17:47 EDT , Chest X-Ray 06/03/23 17:00 IMPRESSION: No radiographic evidence of acute cardiopulmonary disease. Electronically Signed: Pramod Shaw DO at 17:21 EDT , Assessment & Plan Assessment/Plan (1) EE (eosinophilic esophagitis): (2) Dysphagia: QUALIFIERS: Dysphagia type: unspecified Qualified Code(s): R13.10 - Dysphagia, unspecified (3) ARF (acute renal failure): QUALIFIERS: Acute renal failure type: unspecified Qualified Code(s): N17.9 - Acute kidney failure, unspecified (4) GERD (gastroesophageal reflux disease): QUALIFIERS: Esophagitis presence: with esophagitis Esophagitis bleeding: without hemorrhage Qualified Code(s): K21.00 - Gastro-esophageal reflux disease with esophagitis, without bleeding PLAN: Plan Severe dysphagia with sore throat and ~11 pound weight loss over the past 5 days likely due to flare of eosinophilic esophagitis with Schatzki's ring and severe GERD with history of food bolus that required disimpaction in February 2023 - Admit to general medical floor and keep strict n.p.o. on aspiration precautions. Continue IV Solu-Medrol and IV Protonix as per GI recommendations. Give morphine IV as needed for severe level 6-10 out of 10 pain. Check prealbumin to assess for possible underlying protein calorie malnutrition. Give one dose of IV Ativan once for significant anxiety. Will perform an upper endoscopy to evaluate upper GI tract. He was explained alternatives, risk, benefits include not withstanding bleeding, infection, sepsis, perforation, need for emergent surgery and . He will have an ASA of 3. Charges/Coding Visit Charges Inpatient E&M: 44453 Init Hosp L3
[2023-06-04] VITALS (10 sets, daily range): BP systolic 109–125; BP diastolic 69–90; PULSE 49–71; RESP 14–18; TEMP 36.2–36.7; O2SAT 96–98; BMI 19.1
--- NOTE | 2023-06-04 01:15 | NURSING ---
went in to give melatonin to pt but he was sleeping
[2023-06-04] MEDS: 0.9% Normal Saline (1000mL) 1,000 ML 150 ML IV ×4 (02:53→20:58)
[2023-06-04 06:02] LABS: Absolute Lymphocyte Count 1.65 X10^3/uL (0.83-4.51); Absolute Neutrophil Count 5.8 X10^3/uL (2.0-7.7); Basophil# 0.01 X10^3/uL; Basophil% 0.1 % (0-1); Hemoglobin 13.9 g/dL (13.0-16.5); Lymphocyte # 1.65 X10^3/ul (0.83-4.51); Mean Corp Hgb Conc 33.9 g/dL (32-36); Mean Corpuscular Hgb 28.3 pg (27.0-32.0); Mean Corpuscular Volume 83.3 fL (80-94); Mean Platelet Vol. 12.6 fl (6.2-12.0); Monocyte% 5.1 % (0-10); NRBC Flagged by Analyzer 0 % (0-5); Neutrophil # 5.75 X10^3/uL (2.7-7.7); Neutrophil % 73.2 % (47-70); Platelet Count 196 K/mm3 (150-450); RBC Distribution Width CV 12.2 % (11.6-14.6); RBC Distribution Width SD 37.3 fl (35.1-43.9); Red Blood Count 4.92 M/mm3 (4.6-6.2); White Blood Count 7.9 K/mm3 (4.4-11.0)
[2023-06-04 06:38] LABS: ALB/GLOB Ratio 1.3 RATIO (0.9-2.4); AST(SGOT) 7 U/L (15-37); Alanine Aminotransfer ALT/SGPT 11 U/L (16-61); Albumin, Serum 2.8 g/dL (3.2-5.0); Alkaline Phosphatase 55 U/L (45-117); Anion Gap 4 (5-15); BUN 31 mg/dL (7-18); Calcium,Total 8.4 mg/dL (8.5-10.1); Chloride 111 mmol/L (98-107); Creatinine, Serum 1.35 mg/dL (0.70-1.30); EST Glomerular Filtration Rate 70 mL/min (>60); Est Glom Filt Rate - Afr Amer 85 mL/min (>60); Estimated Creatinine Clearance 69.49 ml/min; Globulin 2.2 g/dL (2.2-4.2); Glucose 104 mg/dL (74-106); Magnesium 2.6 mg/dL (1.6-2.6); Phosphorus 5.2 mg/dL (2.5-4.9); Potassium 4.8 mmol/L (3.5-5.1); Sodium Level 141 mmol/L (136-145); Thyroid Stim Hormone (TSH) 0.65 uIU/mL (0.358-3.74)
[2023-06-04] MEDS: Pantoprazole Sodium 40 MG in 0.9% Normal Saline (100mL MB+) 100 ML 330 MG IV ×2 (09:40→20:55)
[2023-06-04] MEDS: 0.9% Saline Lock 10 ML Syringe IV ×2 (09:40→18:36)
--- NOTE | 2023-06-04 10:14 | NURSING ---
Patient taken to AC at this time for procedure, mother at bedside
--- NOTE | 2023-06-04 10:20 | PCM.PN.HOSP ---
Subjective Subjective Feels little bit better today. Objective Data Objective Data Vital Signs: Vital Signs Temp Pulse Resp BP Pulse Ox O2 Del Method 97.4 F L 59 L 16 122/69 H 98 Room Air 06/04/23 09:51 06/04/23 09:51 06/04/23 09:51 06/04/23 09:51 06/04/23 09:51 06/04/23 09:51 Oxygen Delivery Method Room Air Weight: 126 lb 3.187 oz Body Mass Index (BMI) 19.1 Intake & Output: Intake and Output for Last 24 Hours 06/03/23 06/04/23 06/05/23 03:59 03:59 03:59 Intake Total 1620.0 / 1620.0 1000 / 1000 Balance 1620.0 / 1620.0 1000 / 1000 Lab / Micro Data 06/04/23 05:30 06/04/23 05:30 Labs: Laboratory Results - last 24 hr 06/03/23 16:45: WBC 7.2, RBC 5.72, Hgb 16.1, Hct 46.9, MCV 82.0, MCH 28.1, MCHC 34.3, RDW Std Deviation 36.6, RDW Coeff of Shahbaz 12.2, Plt Count 227, MPV 12.4 H, Immature Gran % (Auto) 0.300, Neut % (Auto) 87.1 H, Lymph % (Auto) 10.7 L, [place] % (Auto) 1.9, Eos % (Auto) 0.0, Baso % (Auto) 0.0, Absolute Neuts (auto) 6.3, Absolute Lymphs (auto) 0.77 L, Nucleated RBC % 0, ESR 2, Sodium 137, Potassium 4.4, Chloride 105, Carbon Dioxide 28.0, Anion Gap 4 L, BUN 38 H, Creatinine 1.70 H, Estim Creat Clear Calc 57.28, Est GFR (MDRD) Af Amer 65, Est GFR (MDRD) Non-Af 54 L, BUN/Creatinine Ratio 22.4 H, Glucose 121 H, Calcium 8.8, C-React Prot Ext Range < 2.90, Prealbumin 41.3 H 06/04/23 05:30: WBC 7.9, RBC 4.92, Hgb 13.9, Hct 41.0, MCV 83.3, MCH 28.3, MCHC 33.9, RDW Std Deviation 37.3, RDW Coeff of Shahbaz 12.2, Plt Count 196, MPV 12.6 H, Immature Gran % (Auto) 0.600, Neut % (Auto) 73.2 H, Lymph % (Auto) 21.0, [place] % (Auto) 5.1, Eos % (Auto) 0.0, Baso % (Auto) 0.1, Absolute Neuts (auto) 5.8, Absolute Lymphs (auto) 1.65, Nucleated RBC % 0, Sodium 141, Potassium 4.8, Chloride 111 H, Carbon Dioxide 26.0, Anion Gap 4 L, BUN 31 H, Creatinine 1.35 H, Estim Creat Clear Calc 69.49, Est GFR (MDRD) Af Amer 85, Est GFR (MDRD) Non-Af 70, BUN/Creatinine Ratio 23.0 H, Glucose 104, Calcium 8.4 L, Phosphorus 5.2 H, Magnesium 2.6, Total Bilirubin 0.70, AST 7 L, ALT 11 L, Alkaline Phosphatase 55, Total Protein 5.0 L, Albumin 2.8 L, Globulin 2.2, Albumin/Globulin Ratio 1.3, TSH 0.65 Radiography Diagnostic Testing: Radiology Impression Soft Tissue Neck CT 06/03/23 16:27 IMPRESSION: Mild right facial subcutaneous edema. There is residual noted in the vallecula. Electronically Signed: Pramod Shaw DO at 17:47 EDT , Chest X-Ray 06/03/23 17:00 IMPRESSION: No radiographic evidence of acute cardiopulmonary disease. Electronically Signed: Pramod Shaw DO at 17:21 EDT , Physical Exam Narrative General: Alert, Oriented x3, Cooperative, No apparent distress HEENT: Atraumatic, PERRLA, EOMI, Normocephalic Oral: Moist Mucosa Neck: Supple, No JVD Lungs: Clear to auscultation, Normal air movement, No rhonchi, No wheeze, No rales Cardiovascular: Regular rate, Regular Rhythm, Normal S1, Normal S2, No murmurs Abdomen: Soft, Non Tender, Non-Distended, No Hepato-splenomegaly Extremities: No edema, Capillary Refill Less than 3 Seconds Skin: No rashes, No breakdown Musculoskeletal: No Tenderness to Palpation of Joints or Extremities Neurological: No focal neurological deficits, Motor Exam 5/5 strength throughout, Sensory exam intact to light touch and pain Psych/Mental Status: Normal Affect, Appropriate Assessment & Plan Assessment/Plan (1) EE (eosinophilic esophagitis): (2) Dysphagia: QUALIFIERS: Dysphagia type: unspecified Qualified Code(s): R13.10 - Dysphagia, unspecified (3) ARF (acute renal failure): QUALIFIERS: Acute renal failure type: unspecified Qualified Code(s): N17.9 - Acute kidney failure, unspecified (4) GERD (gastroesophageal reflux disease): QUALIFIERS: Esophagitis presence: with esophagitis Esophagitis bleeding: without hemorrhage Qualified Code(s): K21.00 - Gastro-esophageal reflux disease with esophagitis, without bleeding PLAN: Plan 1. Severe dysphagia with a history of eosinophilic esophagitis and a Schatzki's ring/RICARDO ? He has had an EGD in the past with issues with food bolus getting stuck ? Will consult GI ? Continue with steroids as well as IV PPI ? Continue with IV fluids, creatinine is improving DVT: SCDs Charges/Coding Visit Charges Inpatient E&M: 95593 Subs Hosp L2
--- NOTE | 2023-06-04 11:30 | EGD_PTH ---
PATIENT: WING CALL LOC: [facility]3 U#:[id number] AGE/SX: 23/M ROOM: [facility]312 RE06/03/[address]: Dr. Jose Maria Ponce MD : 2000 BED: 1 DIS: 06/05/2023 SPEC #: [id number] RECD: 06/04/23 13:54 STATUS: KAYLEIGH VILLANUEVA #: [id number] NANI: 06/04/23 11:[address]: Jose Maria Ponce DEPT: SURGICAL PATHOLOGY RECD BY: Erlinda Gama ENTERED: 06/04/23 14:16 SP TYPE: EGD BIOPSY OTHR DR: Dr. Brain Negro, DO Dr. Franck Love DO Tissues: Esophagus, NOS Procedures: Surgery Specimen Level IV HEADER OPERATION: EGD with biopsies and dilatation PRE-OP DIAGNOSIS: Dysphagia TISSUE SUBMITTED: Random esophagus biopsy MICROSCOPIC DIAGNOSIS Esophagus, random biopsy; Fragments of benign squamous epithelium. See comment. ANGLE/mr 06/05/2023 COMMENT Increased number of eosinophils consistent with eosinophilic esophagitis are not seen. Correlation with clinical, endoscopic findings and appropriate follow up are necessary. MICROSCOPIC DESCRIPTION Slides are reviewed. GROSS DESCRIPTION Received in fixative is one container labeled with the patient's name and designated random esophagus biopsy. The specimen consists of multiple irregular fragments of light churchill soft tissue that in aggregate measure 0.8 x 0.8 x 0.1 cm. The specimen is totally submitted in one cassette. ANGLE/ 06/04/2023 TC:5 CPT: 29421
--- NOTE | 2023-06-04 12:13 | OP.CCLET_ITS ---
06/04/2023 Franck Love Do Re : Upper GI endoscopy procedure for Chilo Yu Dear Kate This procedure was performed on Sunday, June 04, 2023. My impressions and recommendations are as follows: Impressions : - Esophageal mucosal changes secondary to eosinophilic esophagitis. Dilated. - Normal stomach. - Normal duodenal bulb. - Biopsies were taken with a cold forceps for evaluation of eosinophilic esophagitis. Recommendations : - [facility]. - Full liquid diet today. - Use Protonix (pantoprazole) 40 mg PO BID. - Continue present medications. My findings are described in the full procedure note, which is enclosed. If I can be of further assistance, please feel free to contact me at . Sincerely, Sumit Bell, 06/04/2023 12:12:32 PM This report has been signed electronically.
--- NOTE | 2023-06-04 12:13 | OP.EGD_ITS ---
Patient Name: Chilo Yu Procedure Date: 06/04/2023 11:32 AM Date of : 2000 Age: 23 Procedure: Upper GI endoscopy Indications: Dysphagia, Failure to respond to medical treatment Providers: Sumit Bell DO Medicines: Monitored Anesthesia Care Patient Profile: This is a 23 year old male. Refer to note in patient chart for documentation of history and physical. Patient has symptoms of acute dysphagia. Complications: No immediate complications. Procedure: Pre-Anesthesia Assessment: - Prior to the procedure, a History and Physical was performed, and patient medications and allergies were reviewed. The patient is competent. The risks and benefits of the procedure and the sedation options and risks were discussed with the patient. All questions were answered and informed consent was obtained. Patient identification and proposed procedure were verified by the physician in the pre-procedure area. Mental Status Examination: alert and oriented. Airway Examination: normal oropharyngeal airway and neck mobility. Respiratory Examination: clear to auscultation. CV Examination: normal. Prophylactic Antibiotics: The patient does not require prophylactic antibiotics. Prior Anticoagulants: The patient has taken no anticoagulant or antiplatelet agents. ASA Grade Assessment: II - A patient with mild systemic disease. After reviewing the risks and benefits, the patient was deemed in satisfactory condition to undergo the procedure. The anesthesia plan was to use monitored anesthesia care (MAC). Immediately prior to administration of medications, the patient was re-assessed for adequacy to receive sedatives. The heart rate, respiratory rate, oxygen saturations, blood pressure, adequacy of pulmonary ventilation, and response to care were monitored throughout the procedure. The physical status of the patient was re-assessed after the procedure. After obtaining informed consent, the endoscope was passed under direct vision. Throughout the procedure, the patient's blood pressure, pulse, and oxygen saturations were monitored continuously. The gastroscope was introduced through the mouth, and advanced to the second part of duodenum. The upper GI endoscopy was accomplished without difficulty. The patient tolerated the procedure well. Scope In: 12:00:28 PM Scope Out: 12:06:20 PM Total Procedure Duration Time 0 hours 5 minutes 52 seconds Findings: Mucosal changes including ringed esophagus, feline appearance and longitudinal furrows were found in the upper third of the esophagus and in the middle third of the esophagus. Biopsies were obtained from the proximal and distal esophagus with cold forceps for histology of suspected eosinophilic esophagitis. Verification of patient identification for the specimen was done. A guidewire was placed and the scope was withdrawn. Dilation was performed with a Savary dilator with no resistance at 51 Fr. The dilation site was examined following endoscope reinsertion and showed moderate improvement in luminal narrowing. Estimated blood loss was minimal. The entire examined stomach was normal. The duodenal bulb was normal. Impression: - Esophageal mucosal changes secondary to eosinophilic esophagitis. Dilated. - Normal stomach. - Normal duodenal bulb. - Biopsies were taken with a cold forceps for evaluation of eosinophilic esophagitis. Recommendation: - [facility]. - Full liquid diet today. - Use Protonix (pantoprazole) 40 mg PO BID. - Continue present medications. Procedure Code(s): --- Professional --- 38684, Esophagogastroduodenoscopy, flexible, transoral; with insertion of guide wire followed by passage of dilator(s) through esophagus over guide wire 49653, 59,51, Esophagogastroduodenoscopy, flexible, transoral; with biopsy, single or multiple CPT copyright 2021 [employer]. All rights reserved. The codes documented in this report are preliminary and upon loan interviewer review may be revised to meet current compliance requirements. Sumit Blel DO 06/04/2023 12:12:32 PM This report has been signed electronically. Number of Addenda: 0 Note Initiated On: 06/04/2023 11:32 AM
--- NOTE | 2023-06-04 15:04 | CASEMGMT ---
LYDIA QUACH Assessment: Face to Face with pt for initial transition planning/care coordination assessment. LYDIA QUACH introduced self and role at [facility], pt voices understanding and consents to assessment. Pt is A&O x4 and answers all questions appropriately at this time. Pt sitting up in bed in no distress. Care providers, pharmacy, and demographics verified/updated. Admitting Dx: severe acute pharyngitis with dysphagia PCP:Kate Specialists:Friend, GI Preferred Pharmacy: [facility] Retail Insurance: [employer] [facility] Prescription Benefit: yes LNOK: Estela Unkefer, mother; Austin Hermankeroberto, father Living Arrangements: Pt lives with mother in a single story home with 2 steps to enter. Pt reports he is I in ADL's and denies concerns at home. Transportation: Pt drives self and denies concerns with transportation. DME:Denies HHC/SNF: Denies hx of Pt states no concerns with going home at time of dc. Pt states no further concerns/needs. CM to follow. Advised pt to ask CM if any further question/concerns/needs arise, voices understanding. Pt Goal: Home Plan: Home Sofía FREEMAN CM
[2023-06-04] MEDS: Acetaminophen 500 MG Tablet 1000 MG PO (15:35)
[2023-06-04] MEDS: Morphine 2 MG/ML Syringe IV (18:35)
[2023-06-05] MEDS: Morphine 2 MG/ML Syringe IV ×2 (01:13→09:42)
[2023-06-05] MEDS: 0.9% Normal Saline (1000mL) 1,000 ML 150 ML IV ×2 (03:53→11:17)
[2023-06-05 03:57] VITALS: BP 127/58; PULSE 74; RESP 16; TEMP 36.6; O2SAT 99
[2023-06-05 06:00] VITALS: BMI 18.8
--- NOTE | 2023-06-05 06:59 | PN.GI_ITS ---
Subjective Subjective Patient is doing well he underwent upper endoscopy yesterday and was discovered to have eosinophilic esophagitis along with some swelling in his esophagus. He underwent dilation and did not experience any problems. He is tolerating a diet and actually wants to go home today. Objective Data Objective Data Vital Signs: Vital Signs Temp Pulse Resp BP Pulse Ox O2 Del Method 97.6 F L 52 L 16 128/71 H 97 Room Air 06/05/23 09:20 06/05/23 09:20 06/05/23 09:20 06/05/23 09:20 06/05/23 09:20 06/05/23 09:20 Oxygen Delivery Method Room Air Weight: 124 lb 12.506 oz Body Mass Index (BMI) 18.8 Intake & Output: Intake and Output for Last 24 Hours 06/03/23 06/04/23 06/05/23 23:59 23:59 23:59 Intake Total 682.5 / 682.5 4052.5 / 4372.5 2547.5 / 2547.5 Balance 682.5 / 682.5 4052.5 / 4372.5 2547.5 / 2547.5 Lab / Micro Data 06/05/23 06:34 06/05/23 06:34 Labs: Laboratory Results - last 24 hr 06/05/23 06:34: WBC 9.0, RBC 4.86, Hgb 13.4, Hct 41.0, MCV 84.4, MCH 27.6, MCHC 32.7, RDW Std Deviation 36.9, RDW Coeff of Shahbaz 12.3, Plt Count 163, MPV 13.2 H, Immature Gran % (Auto) 0.400, Neut % (Auto) 80.2 H, Lymph % (Auto) 15.5 L, [place] % (Auto) 3.8, Eos % (Auto) 0.0, Baso % (Auto) 0.1, Absolute Neuts (auto) 7.2, Absolute Lymphs (auto) 1.39, Nucleated RBC % 0, Sodium 140, Potassium 4.5, Chloride 111 H, Carbon Dioxide 26.0, Anion Gap 3 L, BUN 25 H, Creatinine 1.21, Estim Creat Clear Calc 76.66, Est GFR (MDRD) Af Amer 96, Est GFR (MDRD) Non-Af 80, BUN/Creatinine Ratio 20.7 H, Glucose 118 H, Calcium 8.3 L Physical Exam Narrative General: Alert, Oriented x3, Cooperative, No apparent distress HEENT: Atraumatic, PERRLA, EOMI, Normocephalic Oral: Moist Mucosa Neck: Supple, No JVD Lungs: Clear to auscultation, Normal air movement, No rhonchi, No wheeze, No rales Cardiovascular: Regular rate, Regular Rhythm, Normal S1, Normal S2, No murmurs Abdomen: Soft, Non Tender, Non-Distended, No Hepato-splenomegaly Extremities: No edema, Capillary Refill Less than 3 Seconds Skin: No rashes, No breakdown Musculoskeletal: No Tenderness to Palpation of Joints or Extremities Neurological: No focal neurological deficits, Motor Exam 5/5 strength throughout, Sensory exam intact to light touch and pain Psych/Mental Status: Normal Affect, Appropriate Assessment & Plan Assessment/Plan (1) EE (eosinophilic esophagitis): (2) Dysphagia: QUALIFIERS: Dysphagia type: unspecified Qualified Code(s): R13.10 - Dysphagia, unspecified (3) ARF (acute renal failure): QUALIFIERS: Acute renal failure type: unspecified Qualified Code(s): N17.9 - Acute kidney failure, unspecified (4) GERD (gastroesophageal reflux disease): QUALIFIERS: Esophagitis presence: with esophagitis Esophagitis bleeding: without hemorrhage Qualified Code(s): K21.00 - Gastro-esophageal reflux disease with esophagitis, without bleeding PLAN: Plan Severe dysphagia with sore throat and ~11 pound weight loss over the past 5 days likely due to flare of eosinophilic esophagitis with Schatzki's ring and severe GERD with history of food bolus that required disimpaction in February 2023 - Continue IV Solu-Medrol and IV Protonix as per GI recommendations. Give morphine IV as needed for severe level 6-10 out of 10 pain. Check prealbumin to assess for possible underlying protein calorie malnutrition. Give one dose of IV Ativan once for significant anxiety. Patient is doing well. Given recommendations regarding continuation of medicines. Will follow- up in office in 2 weeks if he continues to tolerate normal diet. Charges/Coding Visit Charges Inpatient E&M: 45909 Subs Hosp L3
[2023-06-05 07:33] LABS: Absolute Lymphocyte Count 1.39 X10^3/uL (0.83-4.51); Absolute Neutrophil Count 7.2 X10^3/uL (2.0-7.7); Basophil# 0.01 X10^3/uL; Basophil% 0.1 % (0-1); Hemoglobin 13.4 g/dL (13.0-16.5); Lymphocyte # 1.39 X10^3/ul (0.83-4.51); Lymphocyte % 15.5 % (19-41); Mean Corp Hgb Conc 32.7 g/dL (32-36); Mean Corpuscular Hgb 27.6 pg (27.0-32.0); Mean Corpuscular Volume 84.4 fL (80-94); Mean Platelet Vol. 13.2 fl (6.2-12.0); Monocyte# 0.34 X10^3/uL; Monocyte% 3.8 % (0-10); NRBC Flagged by Analyzer 0 % (0-5); Neutrophil # 7.17 X10^3/uL (2.7-7.7); Neutrophil % 80.2 % (47-70); Platelet Count 163 K/mm3 (150-450); RBC Distribution Width CV 12.3 % (11.6-14.6); RBC Distribution Width SD 36.9 fl (35.1-43.9); Red Blood Count 4.86 M/mm3 (4.6-6.2)
[2023-06-05 07:52] LABS: Anion Gap 3 (5-15); BUN 25 mg/dL (7-18); BUN/Creat Ratio 20.7 RATIO (10-20); Calcium,Total 8.3 mg/dL (8.5-10.1); Chloride 111 mmol/L (98-107); Creatinine, Serum 1.21 mg/dL (0.70-1.30); EST Glomerular Filtration Rate 80 mL/min (>60); Est Glom Filt Rate - Afr Amer 96 mL/min (>60); Estimated Creatinine Clearance 76.66 ml/min; Glucose 118 mg/dL (74-106); Potassium 4.5 mmol/L (3.5-5.1); Sodium Level 140 mmol/L (136-145)
[2023-06-05 08:02] VITALS: O2SAT 95
[2023-06-05 09:00] VITALS: PULSE 52
[2023-06-05 09:20] VITALS: BP 128/71; PULSE 52; RESP 16; TEMP 36.4; O2SAT 97
[2023-06-05] MEDS: Pantoprazole Sodium 40 MG in 0.9% Normal Saline (100mL MB+) 100 ML 330 MG IV (09:28)
[2023-06-05] MEDS: 0.9% Saline Lock 10 ML Syringe IV (09:43)
--- NOTE | 2023-06-05 10:30 | DCINST_ITS ---
Discharge Instructions Diet Discharge Diet: No restrictions Activity Discharge Activity: Return to Normal Activity Dressing / Incision Call your doctor if you observe: Fever of 101 or Higher, Shortness of breath, Dizziness, Fainting spells, Swelling in the ankles, Chest pain and Increased palpitations (irregular heartbeat) Follow Up Care Test Results: Test results from this visit will be discussed in further detail at your follow- up appointment, if applicable. Discharge Plan Admission Admit Date/Time: 06/03/23 19:25 Attending Provider: Jose Maria Ponce Primary Care Provider: Franck Love Consulting Providers: Brain Negro Discharge Orders/Prescriptions Prescriptions: Continued pantoprazole 40 mg tablet,delayed release (DR/EC) 40 mg PO BID Qty: 60 3RF Referrals / Follow Up: Franck Love DO [Primary Care Provider] - Within 1 Week Sumit Bell DO [Med Staff - Active Staff] - Within 1 Month Disposition Disposition (needs filled in before D/C Order can be placed): Home, Self Care
--- NOTE | 2023-06-05 10:59 | PHA.DC.MR.R ---
Pharmacy [place] Med Reconciliation Pharmacy Service has performed discharge medication reconciliation for this patient. The patient's discharge medication list was reviewed for discrepancies and discrepancies were resolved. Medications at Discharge Home Medications pantoprazole 40 mg tablet,delayed release 40 mg PO BID #60 tabs 02/27/23
--- NOTE | 2023-06-05 14:00 | DS.PCM_ITS ---
Providers Date of Admission: 06/03/23 Primary Care Physician: Dr. Franck Love, DO Consultations 06/03/23 19:36 Consult: Gastroenterology Routine Consulting Provider: [facility] Reason for Consult: Severe dysphagia and sore throat with weight loss w/ kn own EE EMERGENT Consult: No MD Notified: Yes Date Notified: 06/03/23 Time Notified: 19:36 Method of Notification: ED Physician Initiated Reason For Visit: SEVERE ACUTE PHARYNGITIS WITH DYSPHAGIA AND Diagnosis Discharge Diagnosis (1) EE (eosinophilic esophagitis): Status: Acute Code(s): K20.0 - Eosinophilic esophagitis (2) Dysphagia: Status: Acute Code(s): R13.10 - Dysphagia, unspecified Qualifiers: Dysphagia type: unspecified Qualified Code(s): R13.10 - Dysphagia, unspecified (3) ARF (acute renal failure): Status: Acute Code(s): N17.9 - Acute kidney failure, unspecified Qualifiers: Acute renal failure type: unspecified Qualified Code(s): N17.9 - Acute kidney failure, unspecified (4) GERD (gastroesophageal reflux disease): Status: Acute Code(s): K21.9 - Gastro-esophageal reflux disease without esophagitis Qualifiers: Esophagitis presence: with esophagitis Esophagitis bleeding: without hemorrhage Qualified Code(s): K21.00 - Gastro-esophageal reflux disease with esophagitis, without bleeding Medications at Discharge Home Medications pantoprazole 40 mg tablet,delayed release 40 mg PO BID #60 tabs 02/27/23 Hospital Course Operations None Procedures EGD Summary of Care Provided Minutes Spent on Discharge: 34 Hospital Course: Per HPI: WING CALL, is a 23 M with a past medical history of eosinophilic esophagitis with Schatzki's ring, severe GERD, history of tonsillectomy, history of tobacco abuse, history of cannabis use and history of food bolus that requires clearance and February 2023; followed by Dr. Bell of gastroenterology who presents to [facility] ER complaining of sore throat and difficulty swallowing. Mr. Call reports his symptoms began approximately 1 week prior to admission with progressive difficulty swallowing and a sensation that things were getting stuck in his esophagus once again. He has also been in the ER for the past 2 days and is currently on prednisolone liquid along with lidocaine liquid but is still having trouble swallowing and today now has difficulty even swallowing water with a sensation of throat tightness around his Shun's apple. His mother is an RN in the ER at this hospital and she and the patient contacted Dr. Bell who recommended they come back to the ER today for further evaluation and treatment. He also admits to an unintentional ~11 pound weight loss since May 29, 2023 but he denies associated fever, chills, nausea or vomiting. In the ER his CT scan of the neck revealed mild right facial subcutaneous edema with residual noted in the vallecula and his chest x-ray was negative for acute pathologic changes with no evidence of foreign body and with Dr. Bell recommending patient be started on IV Solu-Medrol 40 mg daily in addition to Protonix 40 mg IV twice daily with patient to be kept n.p.o. overnight with plan for EGD in the a.m. complicated by laboratory evidence of s uspected acute renal failure with elevated serum creatinine of 1.7 mg/dL (up from his baseline of 1.28 mg/dL last admission) and he was then admitted to the general medical floor for ongoing care for stay that is expected to be greater than 48 hours. Hospital Course: 1. Severe dysphagia with a history of eosinophilic esophagitis and a Schatzki's ring/RICARDO?23-year-old male with extensive past medical history of eosinophilic esophagitis presented to the hospital with increased difficulty with swallowing and dysphagia. He was taken for an EGD where he was found to continue to have signs of eosinophilic esophagitis and had to have a stricture dilated. He was started on steroids because of the edema as well as continued on IV Protonix twice daily. His creatinine improved with IV fluids and had normalized by the day of discharge. I discussed with him the plan for discharge today he expressed understanding of the risk benefits of going home and would like to go home today. He will continue with Protonix p.o. twice daily as previously prescribed and he will need to follow-up with gastroenterology as an outpatient for further intervention. Physical Exam Narrative General: Alert, Oriented x3, Cooperative, No apparent distress HEENT: Atraumatic, PERRLA, EOMI, Normocephalic Oral: Moist Mucosa Neck: Supple, No JVD Lungs: Clear to auscultation, Normal air movement, No rhonchi, No wheeze, No rales Cardiovascular: Regular rate, Regular Rhythm, Normal S1, Normal S2, No murmurs Abdomen: Soft, Non Tender, Non-Distended, No Hepato-splenomegaly Extremities: No edema, Capillary Refill Less than 3 Seconds Skin: No rashes, No breakdown Musculoskeletal: No Tenderness to Palpation of Joints or Extremities Neurological: No focal neurological deficits, Motor Exam 5/5 strength throughout, Sensory exam intact to light touch and pain Psych/Mental Status: Normal Affect, Appropriate Weight / BMI Weight Weight: 124 lb 12.506 oz Body Mass Index (BMI) 18.8 ABG / Lab / Microbiology Data 06/05/23 06:34 06/05/23 06:34 Laboratory: Laboratory Results - last 24 hr 06/05/23 06:34: WBC 9.0, RBC 4.86, Hgb 13.4, Hct 41.0, MCV 84.4, MCH 27.6, MCHC 32.7, RDW Std Deviation 36.9, RDW Coeff of Shahbaz 12.3, Plt Count 163, MPV 13.2 H, Immature Gran % (Auto) 0.400, Neut % (Auto) 80.2 H, Lymph % (Auto) 15.5 L, [place] % (Auto) 3.8, Eos % (Auto) 0.0, Baso % (Auto) 0.1, Absolute Neuts (auto) 7.2, Absolute Lymphs (auto) 1.39, Nucleated RBC % 0, Sodium 140, Potassium 4.5, Chloride 111 H, Carbon Dioxide 26.0, Anion Gap 3 L, BUN 25 H, Creatinine 1.21, Estim Creat Clear Calc 76.66, Est GFR (MDRD) Af Amer 96, Est GFR (MDRD) Non-Af 80, BUN/Creatinine Ratio 20.7 H, Glucose 118 H, Calcium 8.3 L D/C Instructions Discharge Diet: No restrictions Call your doctor if you observe: Fever of 101 or Higher, Shortness of breath, Dizziness, Fainting spells, Swelling in the ankles, Chest pain and Increased palpitations (irregular heartbeat) Meaningful Use Info Meaningful Use Diagnoses (Choose all that apply): None applicable Discharge Plan Admission Admit Date/Time: 06/03/23 19:25 Attending Provider: Jose Maria Ponce Primary Care Provider: Franck Love Consulting Providers: Brain Negro Discharge Orders/Prescriptions Prescriptions: Continued pantoprazole 40 mg tablet,delayed release (DR/EC) 40 mg PO BID Qty: 60 3RF Referrals / Follow Up: Franck Love DO [Primary Care Provider] - Within 1 Week FriendSumit DO [Med Staff - Active Staff] - Within 1 Month Disposition Disposition (needs filled in before D/C Order can be placed): Home, Self Care Charges/Coding Visit Charges Inpatient E&M: 76233 Disch Hosp >30min
== END 2023-06-05 12:02 | disposition home or self-care (01) | DRG 392 ==
LOC: ED 19:11 → MS3 19:58
PROVIDERS: Internal Medicine Gastroenterology; Admitting Provider Internal Medicine; Emergency Provider Emergency Medicine; PCP Student in an Organized Health Care Education/Training Program; Visit Provider Family Medicine
PROC: 0DJ08ZZ Inspection of Upper Intestinal Tract, Via Natural or Artificial Opening Endoscopic (ICD-10-PCS; CPT 43235; principal; 2023-06-04 11:25)
DX: K20.0 Eosinophilic esophagitis (principal); N17.9 Acute kidney failure, unspecified; F12.90 Cannabis use, unspecified, uncomplicated; F17.210 Nicotine dependence, cigarettes, uncomplicated; K21.9 Gastro-esophageal reflux disease without esophagitis; R13.10 Dysphagia, unspecified
CPT/HCPCS: 36415; 70491; 71045; 80048; 80053; 83735; 84100; 84134; 84443; 85025; 85652; 86140; 88305; 94762; 97802; 99284; J7030; J7050; Q9967; A4216; C1769; J2405

== ENCOUNTER → 2023-08-07 | Outpatient (CLI) | payer OTHER, SELFPAY ==
[2023-08-07 14:34] LABS: Color, Urine Yellow (Yellow); Glucose, Dipstick Normal (Normal); Hematocrit 43.1 % (40-54); Hemoglobin 14.2 g/dL (13.0-16.5); Ketone-Dipstick Negative (Negative); Leukocyte Esterase-Dipstick Negative /ul (Negative); Mean Corp Hgb Conc 32.9 g/dL (32-36); Mean Corpuscular Hgb 27.2 pg (27.0-32.0); Mean Corpuscular Volume 82.6 fL (80-94); Mean Platelet Vol. 12.7 fl (6.2-12.0); Nitrite-Dipstick Negative (Negative); Occult Blood-Urine 150 /ul (Negative); Platelet Count 211 K/mm3 (150-450); Protein-Dipstick 500 mg/dl (Negative); RBC Distribution Width CV 12.8 % (11.6-14.6); RBC Distribution Width SD 38.6 fl (35.1-43.9); Red Blood Count 5.22 M/mm3 (4.6-6.2); Urine Bilirubin Dipstick Negative (Negative); Urine Clarity Clear (Clear); Urine Urobilinogen Normal (Normal); White Blood Count 6.5 K/mm3 (4.4-11.0)
[2023-08-07 15:11] LABS: ALB/GLOB Ratio 1.1 RATIO (0.9-2.4); AST(SGOT) 16 U/L (15-37); Alanine Aminotransfer ALT/SGPT 21 U/L (16-61); Albumin, Serum 2.8 g/dL (3.2-5.0); Alkaline Phosphatase 54 U/L (45-117); Anion Gap 6 (5-15); BUN 17 mg/dL (7-18); BUN/Creat Ratio 11.4 RATIO (10-20); Calcium,Total 8.4 mg/dL (8.5-10.1); Chloride 108 mmol/L (98-107); Creatinine, Serum 1.49 mg/dL (0.70-1.30); EST Glomerular Filtration Rate 62 mL/min (>60); Est Glom Filt Rate - Afr Amer 76 mL/min (>60); Ferritin 187 ng/mL (26-388); Globulin 2.6 g/dL (2.2-4.2); Glucose 104 mg/dL (74-106); Potassium 3.8 mmol/L (3.5-5.1); Protein, Total 5.4 g/dL (6.4-8.2); Sodium Level 142 mmol/L (136-145); Thyroid Stim Hormone (TSH) 1.63 uIU/mL (0.358-3.74)
[2023-08-07 15:36] LABS: Vitamin B12 260 pg/mL (211-911); Vitamin D,25 Hydroxy 12.5 ng/mL
[2023-08-12 04:06] LABS: Vitamin B1, Thiamine 150.1 nmol/L (66.5-200.0); Zinc, Plasma or Serum 51 ug/dL (44-115)
== END | disposition home or self-care (01) ==
LOC: LAB 13:30
PROVIDERS: PCP Student in an Organized Health Care Education/Training Program; Referring Provider Student in an Organized Health Care Education/Training Program; Visit Provider Student in an Organized Health Care Education/Training Program
DX: R31.9 Hematuria, unspecified (principal); R53.83 Other fatigue; K90.9 Intestinal malabsorption, unspecified
CPT/HCPCS: 36415; 80053; 81002; 82306; 82607; 82728; 82746; 84425; 84439; 84443; 84630; 85027; 87086

== ENCOUNTER 2023-08-13 08:00 | Outpatient (RCR) | payer OTHER, SELFPAY ==
--- NOTE | 2023-08-13 09:00 | BH.SGPN.GN ---
Behaviors/Verbalizations/Mental Status: [] Eye contact good. Motor activity appropriate. Speech within normal limits. Affect congruent, mood anxious, content. Thoughts linear, logical, no signs of hallucinations or delusions. Reviewed client?s symptom tracker, denies SI, plan, or intent as of 08/13/2023. Client Response/Progress/Benefit: [] Client receptive of session, attentive and willing to process with group. Identified mental health ?wins? today as making it to group today and challenging his anxiety about being away from home. Discussed ongoing concerns with a recent health diagnosis which has been reinforcing pt's anxiety. Did well to identify goals for improving his ability to challenge and cope with his anxious thoughts. Receptive of and appearing to benefit from supportive feedback and suggestions provided by the group. Recommended continued IOP tx to continue to improve mood stability, promote thought challenging, as well as prevent decompensation. Narrative Note: []
--- NOTE | 2023-08-13 10:00 | BH.SGPN.GN ---
Behaviors/Verbalizations/Mental Status: [] Eye contact is good. Motor activity is appropriate. Appearance is casual. Speech is Appropriate. Mood is depressed. Affect is congruent. Thoughts are linear and logical. No evidence of psychosis. Client Response/Progress/Benefit: [] Limited participation in the group discussions. Attentive during psychoeducation on the 4 communication styles (Passive, Passive-Aggressive, Aggressive, and Assertive) and the obstacles to effective communication. Attentive during interactive discussion on the benefits of communicating effectively. Attentive during interactive discussion in which they identified the benefits and disadvantages to the different communication styles. Benefited from increased understanding of communication styles and how these can impact effective communication. Will continue in IOP to prevent decompensation, increase healthy coping, and improve functioniong. Narrative Note: []
--- NOTE | 2023-08-13 11:05 | BH.SGPN.GN ---
Behaviors/Verbalizations/Mental Status: []Pt alert and oriented, casually dressed. Eye contact fair. Motor activity appropriate. Speech within normal limits. Affect constricted, mood anxious. Thoughts linear, logical, no signs of hallucinations or delusions. Client Response/Progress/Benefit: [] Pt responded well to session AEB Pt listening attentively to others and providing input during group discussion on the pay offs and costs of the different communication styles. Pt able to connect how current communication style impacts mental health. Connected with peers? comments about importance of using assertive communication. Pt did well being assertive in the group activity and practiced using assertive communication in the role playing scenarios. Pt reported he did struggle with some of the scenarios on how to respond assertively because there are times he finds it better to be passive.?Pt seemed to benefit from increasing awareness of healthy strategies to improve communication. Will continue IOP tx to decrease anxious thoughts and symptoms, increase healthy coping, and prevent decompensation.
--- NOTE | 2023-08-14 09:05 | BH.SGPN.GN ---
Behaviors/Verbalizations/Mental Status: [] Pt alert and oriented, neatly dressed and groomed. Eye contact good. Motor activity appropriate. Speech within normal limits. Affect flat, mood calm. Thoughts linear, logical, no signs of hallucinations or delusions. Reviewed pt?s symptom tracker, no risk for suicidal ideation, plan, or intent 08/14/23 Client Response/Progress/Benefit: []Pt responded well to session, attentive and engaged. Pt reports feeling tired this morning which pt stated is both physically tired and tired of all his doctors appointments. Pt's mental health wins today include trying new foods despite anxiety and having an open-mind in IOP tx. Pt shared I want to get some skills to manage his anxiety. Pt's stressor today is his ongoing medical issues that exacerbate pt's anxiety. Pt appeared to benefit from receiving supportive statements from peers. Pt will continue IOP tx to prevent decompensation, improve daily functioning, and gain healthy coping skills. Narrative Note: []
--- NOTE | 2023-08-14 10:15 | BH.NA_ITS ---
Physical Data Vital Signs Pulse Rate: 100 Blood Pressure: 140/86 Height/Weight Height: 1.73 m Weight:: 54.431 kg Weight in Pounds: 120.0 lbs Current Medication Compliance Medication Compliance Do you take your medication as prescribed?: Yes Nutritional History Appetite Nutritional Instructions: Describe your appetite:: Fair Additional nutritional information:: Client has lost about 25lbs in the last 2 m ont. Client states his EoE discomfort/pain prevents him from eating at times even when he is hungry when he is having a flair up. Functional Assessment Sleep Pattern Describe any problems with sleeping: Client states he sleeps about 8 hours per night. Sensory/Communication Assess Communication Problems Do you have difficulty understanding what people are saying?: No Medical Problems/History Neurological Conditions Neurological: Headaches (client states related to eosinophilic esophagitis (EoE)) Gastrointestinal Conditions Gastrointestinal: Other (See comments) (GERD, Eosinophilic esophagitis (EoE)) Family History Family History Other Diabetes Kidney disease Additional History Additional comments:: Client states he recently had protein and blood in his urine. Client states he had a grandfather that from Alport Syndrome (kidney, eye and ear related) and states he is seeing his PCP tomorrow and will probably get further testing for this syndrome Surgical History Surgical History Have you had any surgeries? If so, list type and date:: Yes (shoulder, foot, tonsillectomy, esophageal scopes) Substance Abuse Substance Abuse Please describe substance abuse in the last 30 days:: Client states he does not currently drink alcohol because it is upsetting to his stomach. Client states he used to smoke cigarettes, but currently vapes nicotine. Client stopped using mar ijuana about 3 months ago. Client denies caffeine use. Mental Status Summary Mental Status Significant Findings/Observations on Appearance and Mood:: Client is alert and oriented x 4. Client is casually groomed. Client is cooperative with assessment. Client makes good eye contact. Client's voice has normal rate and volume. Client has a somewhat restricted affect. Client makes logical associations and has normal processing. Client denies delusions/hallucinations. Client denies SI. Suicide Assessment Suicidal Ideation Are you currently or have you been suicidal in the past?: Yes Suicidal Intentional Rating Scale (SIRS): Suicidal thoughts (past) (client admits to some passive thoughts of but denies SI) Physician Notification Past Psychiatric History MH Treatment Hx Past Psychiatric Medications:: Client states a couple of years ago he tried one medication for less than 2 weeks but does not remember the name Age of first mental health symptoms: Client states he had some counseling around age 11-12 and trialed a medication for depression a couple of years ago. Describe (age, circumstance, etc) any past hospitalizations: None. Current providers for mental health treatment (counselor, psychiatrist, nurse case management, etc.): None. Fall Risk Assessment Age Age: Less than 60 Mental Status Mental Status: Willing & able to ask for assistance when needed Physical Status Physical Status: No problems Impairments Impairments: None Elimination Elimination: Continent AND independent Medications/Substances Psychotropics:: Antidepressants Medications/substances used within the past 24 hours or ordered to administer: 1-2 of the medications/substances listed above RN Summary of Impressions Impressions Recommendations Impressions: Psychiatric Issues: 1. Major depressive disorder, recurrent, severe without psychosis 2. Generalized anxiety disorder 3. Nicotine use disorder 4. Marijuana use disorder (sober for 3 months) 5. Health and work issues Impression: General Medical Conditions: Client states he is seeing his PCP tomorrow for blood and protein in his urine and possibly might get tested for Alport Syndrome. Client states his PCP recently had him start supplementing for low vitamin B12 and Vitamin D levels. Level of Care How do the client's current symptoms and functional deficits support need for this level of care?: Client was referred to to IOP by his mother after he asked for help finding therapy. Client states he has felt depressed for the last 6 months or more, especially since finding out he has eosinophilic esophagitis. Client states he is very careful with foods because he does not know yet what all foods will/have caused a flair-up of his condition. Client states he has unintentionally lost about 25lbs in the last 2 months due to two flair-ups. Client states he has been on medication for this EoE for about 2 months but has not had much relief yet. Client states I know my mom thinks I focus on this too much sometimes, but I don't think it's too much. Client also states he recently had blood/protein in his urine and may be undergoing further tests related to that. Client denies SI when asked. Client does report decreased energy and frequent health related ruminations. IOP will promote gains and prevent further decompensation while providing social support and skills training.
--- NOTE | 2023-08-14 11:15 | BH.SGPN.GN ---
Behaviors/Verbalizations/Mental Status: []Pt alert and oriented, casually dressed and groomed. Eye contact fair. Motor activity appropriate. Speech within normal limits. Affect constricted, mood anxious. Thoughts linear, logical, no signs of hallucinations or delusions Client Response/Progress/Benefit: [] Pt was an active participant during group discussion. Pt was placed in a smaller group and participated in combatting example distortions with peers. Pt was engaged in the smaller group, participated in group interactions to brainstorm answers, and appeared to be comprehending cognitive distortions. Attentive and appeared to connect with psychoeducation about different strategies to reframe/challenge distortions. Engaged in small group practice of challenging cognitive distortion examples. Benefited from gaining further insight and awareness of cognitive distortions as well as practicing ways to reframe and challenge thoughts. Will continue in IOP to decrease anxious avoidance, improve healthy coping skills, and prevent decompensation.
--- NOTE | 2023-08-14 12:13 | BH.PSY.EVA_ITS ---
Psychiatric Evaluation Initial Evaluation Initial Evaluation: Chief Complaint: I have constant stress when I think about eosinophilic esophagitis. History of Present Illness: [] The patient is a 23-year-old single, male with a history of depression, anxiety and health issues who was referred by his mother to the [facility] behavioral health IOP. Patient currently lives with his mother and they get along well and for primary support he has his girlfriend of 2 years. The patient was having severe inability to swallow resulting in emergency room visits and was diagnosed eventually with eosinophilic esophagitis 6 months ago. He had a biopsy of his esophagus and removal of a food bolus. 3 months ago his symptoms increased for unknown reasons which the patient states could be due to eating foods he is allergic to. Patient's anxiety becomes severe especially when his EEG flares and at those times he obsesses over the fact that he has this debilitating illness. Today he states that when his EEG is doing well like the past few weeks he does not obsess over it. According to the patient the diagnosis and his symptoms from the EEG caused him to become hyperfocused on his body and hyperfocused on swallowing. He has been unable to work in recent months due to the symptoms and has been having a hard time doing his activities of daily living. 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 He used to use marijuana daily but quit 3 months ago and felt that it was worsening his EE symptoms. He still vapes nicotine. His anxiety greatly worsens with his increase in symptoms of PE. At that time he becomes unable to eat and has lost over 20 pounds in the past 3 to 6 months. In the past 6 months due to the above stressors he has become depressed with sad mood, worthlessness, hopelessness and guilt. He endorses anhedonia, low energy, fatigue and occasional passive thoughts of . He denies suicidal ideation but his mother told staff at the intake that she feels that he is suicidal at times. He denies suicidal ideation or any plan for suicide. He also denies homicidal ideation, hallucinations, delusions or omkar ever. Concentration is okay and he is sleeping about 8 hours a night with amitriptyline. He is a worrier by nature but denies any panic attacks. However symptoms resemble panic attacks when he feels like he is choking to due to his symptoms of eosinophilic esophagitis. He denies OCD, eating disorder or history of self-harm. He has some avoidance due to the trauma from his feeling like he is choking to at times but no other symptoms of PTSD. Current Psychiatric Medications: [] Amitriptyline 25 mg p.o. at bedtime which helps him sleep and helps his headaches that resolved from his EEG (took this for 4 weeks and then stopped it but then went back on it 2 weeks ago because symptoms worsened when he was off it). Past Psychiatric History: [] No psych admits ever. No suicide attempts ever. No current mental health providers. He was first depressed and anxious at age 11 when his parents . He first had counseling at age 11 or 12. He then had counseling again at age 21 for depression and anxiety because he felt lost. And he found it helpful. He took his first psychiatric medications also 2 years ago for anxiety but only took the medication for 2 weeks because he did not like how he felt on it. He does not remember the name of the medication. Substance Use History: [] Use marijuana 2 to 3 g daily for 2-1/2 years and then went off it for 6 months and used it for 3 years before that daily also. No marijuana use now for 3 months. He does not smoke cigarettes but he does vape nicotine daily. He denies any alcohol use and denies any other drug use. No rehab ever. Allergies: [] Codeine, lactose, bovine, casein Medications: [] Psych meds as dictated above plus Dupixent shots once a week for EE, Protonix, pantoprazole, vitamin D and vitamin B12 Past Medical History: [] Eosinophilic esophagitis diagnosed 6 months ago; GERD. He also has blood and protein in his urine and says he has been told to get genetic testing for all ports syndrome as his maternal grandfather of Alport syndrome at age 23 in the past. No other illnesses and no surgeries. Family Psychiatric History: [] Mom is 51 years old and his father is 55 years old. Father has PTSD from the . His sister has anxiety but he does not know of any other psychiatric issues in the family. No suicides in the family. He thinks there may be alcohol abuse in some of his family members but is uncertain of who. Personal/Social History: [] He was born and raised in [place] and describes his childhood as my parents fought a lot. Patient states that his mother and father both loving but his parents when the patient was 11 years old and he struggled until high school from the divorce. He is the youngest child and has 3 older sisters and they all get along. He denies any verbal, sexual or physical abuse. When his parents the patient stayed with his mother and his father moved out of state but he saw him on occasion. Then the father moved back in state and the patient lived with his father from age 13 to age 19. He still saw his mother. He describes school as boring but he had friends and he graduated high school but no college. He worked at a [employer] job for 14 months and then moved to [place] where one of his sisters lives for 6 months but then came back because he did not like it there and is currently was working at the job described in the present illness. He has had 1 serious girlfriend which is the current girlfriend of 2 years. He states that she is very supportive. Legal History: [] No arrests. Has cdl a driver's license. No DUIs. Review of Systems: [] Occasional headaches which he attributes to his EEG. He has nausea and difficulty swallowing and other GI symptoms from his EEG. He also has blood and protein in his urine but review of systems is otherwise negative except as noted in present illness. Vital Signs: [] Vital signs are reviewed in the records and in the nurses notes and updated and the patient is deemed medically able to participate in the IOP. Mental Status Examination: [] The patient is a thin, 23-year-old male seen wearing a baseball cap and appears otherwise normal for stated age. He is casually dressed and groomed with good hygiene and has no psychomotor agitation or retardation. He is cooperative and pleasant during the interview. He is ambulatory with a normal gait. Eye contact is good and speech is normal rate and rhythm and fluent with no pressure. Mood is depressed and anxious. Affect is mildly constricted. Thought process is goal-directed and organized. Thought content: There is evidence of occasional passive thoughts of but there is no evidence of suicidal ideation, plan for suicide, homicidal ideation, hallucinations or delusions. Reality testing is intact. Intelligence is avera ge or above. Impulsivity is low to moderate. Judgment is intact. Insight: Some present. Diagnoses: [] 1. Major depressive disorder, recurrent, severe without psychosis 2. Generalized anxiety disorder 3. Nicotine use disorder 4. Marijuana use disorder (sober for 3 months) 5. Health and work issues Plan: [] The patient will start the IOP in behavioral health as the structure, support, education and group therapy will hopefully prevent worsening of the patient's symptoms. He felt safe during the interview and if it anytime he does not feel safe he agrees to let us know or go to the emergency room. The risk, options, possible complications and side effects of the medications offered were discussed with the patient and he understands and accepts these. He will continue his amitriptyline. He agrees to try Remeron 15 mg p.o. at bedtime to help with sleep, nausea, anxiety and depression and weight loss. Prescription is sent in for this. He agrees to use no nicotine in the evening. I will see the patient in follow-up in 2 weeks and he will continue to follow-up with his outpatient providers.
--- NOTE | 2023-08-14 12:27 | BH.DR.ITP ---
Initial Treatment Plan Patient Information Visit Information: ADMISSION DATE: EXPECTED LOS: 4-6 weeks Problems/Symptoms Problem #1:: Anxiety Symptom:: Worry, rumination, panic attacks, avoidance, biological disruption of weight and sleep Problem #2:: Depression Symptom:: Sadness, hopelessness, worthlessness, guilt, low energy, anhedonia, passive thoughts of
[2023-08-14 15:00] VITALS: BP 140/86; PULSE 100
--- NOTE | 2023-08-14 15:49 | BH.MTP ---
Master Treatment Plan Patient Information Program Physician:: Dr. Loren Lenz Primary Therapist:: Jacquelin MCCANN Psychiatric Diagnoses Psychiatric Diagnoses:: Major depressive disorder, recurrent, severe without psychosis F 33.2; Generalized anxiety disorder; Nicotine use disorder; Marijuana use disorder (sober for 3 months) Diagnosis Code(s):: F 33.2 Estimated LOS Estimated LOS (in weeks):: 6 Problem/Goal #1 Problem/Goal #1 Stated Goal:: Pt will reduce anxiety, avoidance, and rumination while increasing ability to function on daily basis Description of Barriers: Pt has health issues that impact his energy levels and functioning, which in turn impact his mood and mental health. Pt does not currently have any mental health providers. Pt's becomes hyper-focused on his physical health which then worsens his symptoms. Pt is not currently working due to his mental and physical health. Functional Impact: Pt is a 23-year-old male with a history of MDD, MANUEL, and health issues impacting his overall functioning. Pt was referred to [facility] tx by his mother due to worsening depression, sleep issues, and difficulty functioning. Pt was diagnosed with a medical condition that affects pt's ability to eat and pt has constant stress about it. Pt shared when he has a flare up, that's all I think about. Pt has lost 25 pounds because he is afraid to try new foods due to flare ups. Pt reports thoughts of , but no SI. Pt endorses lack of energy, feeling like a burden, anhedonia, and issues with sleep. Pt also reports panic attacks and difficulty completing ADLs. Goal Relevant Strengths/Supports: Pt has strong support from family and his girlfriend. Objectives Objective #1: Stated Objective: Pt will identify 2-3 anxiety triggers and 2 coping skills to use when feeling anxious to manage anxiety as shown by decreasing DSM-5 scores for anxiety. Interventions: Therapist will provide education on anxiety, avoidance behaviors, and maintenance cycles. Therapist will help pt explore personal symptoms and warning signs of anxiety. Therapist will teach pt coping skills to improve emotional regulation, mindfulness, and distress tolerance to help pt cope with anxiety in the moment. Discharge Criteria: Pt will have accomplished this goal when can identify at least 2 triggers and report using 2 coping skills to manage anxiety. Additionally, pt will have accomplished this goal when DSM-5 scores show a reduction for anxiety. Target Date: 09/24/23 Review Date: 09/03/23 Status: open Objective #2: Stated Objective: Pt will identify at least 2-3 distortions to reinforce anxiety and rumination and use one skill to challenge these thoughts. Interventions: Therapist will help pt identify distorted thought patterns that reinforce anxiety and rumination. Therapist will use CBT and DBT to help pt increase insight to the connection between thoughts, emotions, and behaviors. Therapist will encourage pt to practice thought challenging. Discharge Criteria: Pt will have accomplished this goal when pt can verbalize at least two distortions and report ability to combat these thoughts. Target Date: 09/24/23 Review Date: 09/03/23 Status: open Problem/Goal #2 Problem/Goal #2 Stated Goal:: Pt will decrease depressive symptoms, hopelessness, anhedonia, isolation, and negative thinking patterns. Description of Barriers: Pt has health issues that impact his energy levels and functioning, which in turn impact his mood and mental health. Pt does not currently have any mental health providers. Pt's becomes hyper-focused on his physical health which then worsens his symptoms. Pt is not currently working due to his mental and physical health. Functional Impact: Pt is a 23-year-old male with a history of MDD, MANUEL, and health issues impacting his overall functioning. Pt was referred to [facility] tx by his mother due to worsening depression, sleep issues, and difficulty functioning. Pt was diagnosed with a medical condition that affects pt's ability to eat and pt has constant stress about it. Pt shared when he has a flare up, that's all I think about. Pt has lost 25 pounds because he is afraid to try new foods due to flare ups. Pt reports thoughts of , but no SI. Pt endorses lack of energy, feeling like a burden, anhedonia, and issues with sleep. Pt also reports panic attacks and difficulty completing ADLs. Goal Relevant Strengths/Supports: Pt has strong support from family and his girlfriend. Objectives Objective #1: Stated Objective: Pt will learn and utilize 2-3 healthy coping strategies to better manage depressive symptoms and reduce isolation as shown by a decrease of DMS-5 symptoms for depression. Interventions: Through group and individual sessions, therapist will help pt identify triggers and warning signs of depression and guilt including emotional, physical, and behavioral changes. Therapist will teach pt various coping skills to manage symptoms and give pt tangible resources to use to regulate emotions. Therapist will use cognitive restructuring techniques and help pt gain awareness of negative thoughts that reinforce guilt and depression. Therapist will provide psychoeducation on maintenance cycles and help pt learn ways to break unhealthy maintenance cycles. Therapist will help pt incorporate behavioral activation and assist pt in setting SMART goals. Discharge Criteria: Pt will have met this goal when can report learning and using at least 2 coping skills to manage depressive symptoms and reduce isolation. Additionally, pt will have met this goal when pt's DSM-5 scores for depression decrease. Target Date: 09/24/23 Review Date: 09/03/23 Status: open Objective #2: Stated Objective: Pt will reduce anhedonia and improve mood through setting and accomplishing 2-3 behavioral activation goals a week. Interventions: Through group and individual sessions, pt will learn how to set small SMART goals to promote mood stability. Therapist will provide education on maintenance cycles for depression and help pt learn how to break unhealthy maintenance cycles Discharge Criteria: Pt will have accomplished this goal when can report accomplishing at least two behavioral activation goal a week. Target Date: 09/24/23 Review Date: 09/03/23 Status: open
--- NOTE | 2023-08-14 15:49 | BH.MDN ---
Multi-Disciplinary Note Note 30-min Individual: Time Started:: 10:25 Date: 08/14/23 Purpose of session/treatment goals addressed:: To gather information on pt's symptoms, stressors, and history. Another goal was to build rapport and identify goals. Eye Contact:: Good Motor Activity:: Appropriate Appearance:: Casual Speech:: Soft Mood:: Anxious and Depressed Affect:: Constricted Thoughts:: Linear, Logical and No evidence of hallucinations/delusions noted Staff Interventions:: rapport building, strengths perspective and treatment planning Client Response:: Pt responded well to session, open to meeting with therapist. Pt shared he is hoping IOP helps pt cope with his health issues. Pt has had mental health treatment in the past and found it helpful. Pt is currently not working because of his health issues and pt feels like much of his life is on hold because of his health issues. Pt stated he is constantly thinking about his health which has impacted pt's overall functioning. Pt was diagnosed with Eosinophillic Esophagitis within the last year and since then he has lost weight, has little energy, and constantly has doctors appointments. Pt shared he used to be a foodie but now pt is afraid to try new things because of his EE and getting a flare up. Pt also has not been able to drive far distances because he is too afraid to be away from the hospital. Pt shared he wants to get back to a point where he is less focused on the physical. Pt does not believe his anxiety causes EE flare ups, but he does think the anxiety prolongs them. Pt has his girlfriend as his primary support and he lives with his mom who is sometimes helpful. Pt's parents are and he has a good relationship with them, but they fought a lot when pt was a child. Pt plans to continue with IOP counseling three days a week. Risks/Concerns:: Pt denies any suicidal ideations, plan, or intent. Progress Toward Goals/Plan:: Pt's first week of IOP tx, so no progress to document. Pt has had counseling in the past and found it helpful. Pt reports his medical symptoms impact his mental health significantly and he hopes that while in IOP he can learn healthy coping skills. Pt also wants to be able to get back to functioning closer to his baseline. Pt will continue IOP tx to prevent decompensation, improve daily functioning, and increase healthy coping skills. Time Stopped:: 11:00
--- NOTE | 2023-08-14 16:10 | BH.PSA ---
Source of Information Presenting Problems/Circumstances Problems, Referral Source, Mental Status, Client: Pt is a 23-year-old male with a history of MDD, MANUEL, and health issues impacting his overall functioning. Pt was referred to [facility] tx by his mother due to worsening depression, sleep issues, and difficulty functioning. Pt was diagnosed with a medical condition that affects pt's ability to eat and pt has constant stress about it. Pt shared when he has a flare up, that's all I think about. Pt has lost 25 pounds because he is afraid to try new foods due to flare ups. Pt reports thoughts of , but no SI. Pt endorses lack of energy, feeling like a burden, anhedonia, and issues with sleep. Pt also reports panic attacks and difficulty completing ADLs. Psychiatric Presentation Psych Issues & Need for Admission Psychiatric Issues:: 1. Major depressive disorder, recurrent, severe without psychosis 2. Generalized anxiety disorder 3. Nicotine use disorder 4. Marijuana use disorder (sober for 3 months) 5. Health and work issues Past Psychiatric History MH Treatment Hx Treatment History: No psych admits ever. No suicide attempts ever. No current mental health providers. He was first depressed and anxious at age 11 when his parents . He first had counseling at age 11 or 12. He then had counseling again at age 21 for depression and anxiety because he felt lost and he found it helpful. He took his first psychiatric medications also 2 years ago for anxiety but only took the medication for 2 weeks because he did not like how he felt on it. He does not remember the name of the medication. First hospitalization:: n/a Most recent hospitalization:: n/a Medication Trials:: No ECT Therapy:: No Age of first mental health symptoms: Approximately 10-12 years old Describe (age, circumstance, etc) any past hospitalizations: Pt denies any hospitalizations Current providers for mental health treatment (counselor, psychiatrist, caseworker protective services, etc.): Pt had no current mental health providers. Pt also does not want medication for his mental health. Development & Family of Origin Childhood Significant Childhood Events: He was born and raised in [place] and describes his childhood as my parents fought a lot. Patient states that his mother and father both loving but his parents when the patient was 11 years old and he struggled until high school from the divorce. Family Who currently lives in your home?: Pt currently lives with his mother. Describe family composition:: Pt has an okay relationship with his mother and he is somewhat close to his father. Pt has a girlfriend currently and he describes the relationship as healthy. Pt has never been and he has no children. Family History Family History Other Diabetes Kidney disease Family Hx of Psychiatric or AOD Problems: Mom is 51 years old and his father is 55 years old. Father has PTSD from the . His sister has anxiety but he does not know of any other psychiatric issues in the family. No deaths by suicide in pt's family. He thinks there may be alcohol abuse in some of his family members but is uncertain of who. Ethnicity Culture Do you identify yourself with any particular cultural, ethnic background, or community?: No Sexuality Sexual Orientation: Heterosexual Mental Status Memory Recent Memory: Good Remote Memory: Good Concentration Concentration: Good Eye Contact Eye Contact: Good Speech Speech: Slow and Soft Thought Process Thought Process: Ruminations Insight: Fair Judgment: Fair Behavior: Anxious Orientation Orientation: Time, Person, Place and Situation Appearance Appearance: Appropriate Mood Mood: Anxious and Depressed Affect Affect: Flattened Suicide Assessment Suicidal Ideation Have you ever felt like hurting yourself?: No Please explain:: Pt denies any SI. Pt admits to having thoughts of in his lifetime, but no suicidal ideations. Physician Notification Violent Behavior/Abuse History Homicidal Ideation Do you have any homicidal thoughts? If so, explain:: No Abuse Have you ever been abused?: No Life Events Are there any other significant life events?: Hardships (Pt was diagnosed with eosinophillic esophagitis and since then his eating has drastically changed which impacted pt's weight and energy.) Safety Do you ever feel threatened in your home? If yes, describe:: No Adult Social History Age 19 to Present Describe your current support system:: Pt has his girlfriend, mother, and father Substance Use Substance Substance Use Type: Marijuana and Other (nicotine) Specific Drugs What specific drugs have you used?: Pt used to use marijuana daily on and off for the past 3-4 years. No marijuana use now for 3 months. He does not smoke cigarettes but he does vape nicotine daily. He denies any alcohol use and denies any other drug use. No rehab ever. 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 Service Service Have you ever been in the ?: No Legal History Records Have you had any past legal charges?: No Do you have any current legal charges?: No Have you ever been incarcerated? If yes, describe:: No Court Orders Have you had any past court orders for psychiatric treatment?: No Do you have a present court order for psychiatric treatment?: No Problem Checklist Current Problem Areas Problem List: Nutritional/Eating pattern changes (has lost over 20 pounds in the past 3 to 6 months due his medical issues and then the anxiety that comes with it.), Depressed mood/sad, Anxiety, Substance use (history of marijuana use disorder.), Sleep problems, Pertinent health issues (Eosinophilic esophagitis diagnosed 6 months ago; GERD. He also has blood and protein in his urine and says he has been told to get genetic testing for Alports syndrome as his maternal grandfather of Alport syndrome at age 23. ) and Additional psychosocial stressors (difficulty working due to anxiety and medical issues.) Diagnoses Diagnoses Diagnosis #1:: MDD F 33.2 Diagnosis #2:: MANUEL Diagnosis #3:: Nicotine Use Disorder Diagnosis #4:: Marijuana use disorder in partial remission (3 months) Interpretive Summary Interpretive Summary Interpretive Summary: Pt is a 23-year-old single, male with a history of depression, anxiety and health issues who was referred by his mother to [facility]. Pt currently lives with his mother, and they get along well and for primary support he has his girlfriend of 2 years. Pt was having severe inability to swallow resulting in emergency room visits and was diagnosed eventually with eosinophilic esophagitis 6 months ago. He had a biopsy of his esophagus and removal of a food bolus.? 3 months ago, pt?s symptoms increased for unknown reasons which Pt states could be due to eating foods he is allergic to. Pt?s diet has changed significantly since being diagnosed with EE and pt has lost over 20 pounds in the past 3 to 6 months. Pt's anxiety becomes severe especially when his EE flares and at those times he obsesses over the fact that he has this debilitating illness. According to Pt the diagnosis and his symptoms from the EE cause him to become hyper focused on his body and hyper focused on swallowing. He has been unable to work in recent months due to the symptoms and has been having a hard time doing his activities of daily living. 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 He used to use marijuana daily but quit 3 months ago and felt that it was worsening his EE symptoms. He still vapes nicotine. His anxiety greatly worsens with his increase in symptoms of EE. In the past 6 months due to the above stressors, he has become depressed with sad mood, worthlessness, hopelessness and guilt. He endorses anhedonia, low energy, fatigue and occasional passive thoughts of . He denies suicidal ideation but his mother told staff at the intake that she feels that he is suicidal at times. He denies suicidal ideation or any plan for suicide. He also denies homicidal ideation, hallucinations, delusions or omkar ever. Concentration is okay and he is sleeping about 8 hours a night with amitriptyline. He is a worrier by nature but denies any panic attacks. However, symptoms resemble panic attacks when he feels like he is choking to due to his symptoms of eosinophilic esophagitis. He denies OCD, eating disorder or history of self-harm. He has some avoidance due to the trauma from his feeling like he is choking to at times but no other symptoms of PTSD. Treatment Plan Recommendations Recommendations Guidelines Recommendations:: Pt will start IOP as the structure, support, education and group therapy will hopefully prevent worsening of Pt?s symptoms. He felt safe during the interview and if it anytime he does not feel safe he agrees to let us know or go to the emergency room. The risk, options, possible complications and side effects of the medications offered were discussed between Dr. Lenz and Pt and he understands and accepts these. According to the psychiatric evaluation, pt will continue his amitriptyline. He agrees to try Remeron 15 mg p.o. at bedtime to help with sleep, nausea, anxiety and depression and weight loss. Prescription is sent in for this. He agrees to use no nicotine in the evening. Pt will need outpatient therapy prior to discharge.
--- NOTE | 2023-08-20 09:05 | BH.SGPN.GN ---
Behaviors/Verbalizations/Mental Status: [] Eye contact is good. Motor activity is appropriate. Appearance is casual. Speech is Appropriate. Mood is depressed. Affect is flat. Thoughts are linear and logical. No evidence of psychosis. Reviewed daily check in sheet and no reports of suicidal ideations or intent. Client Response/Progress/Benefit: [] Participated when prompted. Attentive. Appeared drowsy this AM. States ? I?m here today?. Woke up late and rushed to get here which led to frustration because ? I skipped my morning routine?. Shared that he has lost 20lbs recently due to medical issues and anxiety, however reports win is that he gained a pound back. He denied eating more or any other strategies to help continue to increase weight. Reports being ?not as sick? recently. He shared recent medical ?flare ups? which include numerous somatic issues such as headaches and nausea. He minimized its effects on his mental health stating ? I?m used to it?. Limited progress noted. Benefited from group support. Will continue in IOP to prevent decompensation, stabilize mood, improve functioning, and increase healthy coping. Narrative Note: []
--- NOTE | 2023-08-20 10:10 | BH.SGPN.GN ---
Behaviors/Verbalizations/Mental Status: [] Eye contact is fair. Motor activity is appropriate. Appearance is casual. Speech is Appropriate. Mood is anxious. Affect is constricted. Thoughts are linear and logical. No evidence of psychosis. Client Response/Progress/Benefit: [] Client responded well to session AEB listening attentively to others. Group identified types of social support (family, pets, professionals, spiritual, etc) and provided examples of benefits of having social support, including: decreased stress, increased self-esteem, encouragement, distraction, etc. Client also participated in group discussion regarding the barriers to accessing support such as: lack of awareness, lack of trust, and low self-esteem. Client participated in experiential activity illustrating the impact communication, boundaries, and patience play in creating healthy support systems. Client appeared to benefit from increased knowledge of the benefits of social support and greater self-awareness. Will continue IOP to decrease anxious avoidance, increase healthy coping skills, and prevent decompensation.
--- NOTE | 2023-08-20 11:10 | BH.SGPN.GN ---
Behaviors/Verbalizations/Mental Status: [] Client alert and oriented, casually dressed and groomed. Eye contact good. Motor activity appropriate. Speech within normal limits. Affect congruent, mood anxious and depressed. Thoughts linear, logical, no signs of hallucinations or delusions. Client Response/Progress/Benefit: [] Client was an active participant throughout AEB contributing to discussion, providing personal examples, and taking notes. Client processed emotions felt in the activity and how they coped in the moment. Client provided input during discussion on the types of support our supports can provide. Client able to identify current support system and barriers that get in the way of using supports by drawing out their own support net. Client reported after identifying what type of supports they receive; they gained awareness that they could benefit from more tangible supports. Client identified steps to achieve this by challenging himself to follow-through with asking for help with tasks at home, such as cooking. Client shared increasing tangible supports will help them have more time for self-care and reduce stress levels. Client seemed to benefit from identifying the type of support client needs to work on improving. Client recommended to continue IOP tx to promote continued application of anxiety management skills and improve mood stability. Narrative Note: []
--- NOTE | 2023-08-23 10:10 | BH.SGPN.GN ---
Behaviors/Verbalizations/Mental Status: []Eye contact is good. Motor activity is appropriate. Appearance is casual. Speech is Appropriate. Mood is apathetic Affect is congruent. Thoughts are linear and logical. No evidence of psychosis. Client Response/Progress/Benefit: [] Pt was an active participant in group discussion and experiential activity. Attentive during psychoeducation on resilience. Participated during interactive discussion with peers on the definition of resilience. Able to relate experiential activity of group juggle to topics of resilience. Group worked together to identify what can impact one's ability to be resilient which included past experiences, trauma, toxic support system, lack of resources, and current mental/physical health state. Worked well with peers in small group in which they identified factors that contribute to building resilience. Pt?s group worked on the importance of nurturing a positive view of self. Benefited from increased awareness of resilience and the factors that contribute to building resilience. Will continue in IOP to prevent decompensation, reduce isolation, and improve daily functioning. Narrative Note: []
--- NOTE | 2023-08-23 14:42 | BH.MDN ---
Multi-Disciplinary Note Note 30-min Individual: Time Started:: 12:10 Date: 08/23/23 Purpose of session/treatment goals addressed:: To work on goal #2 of pt's treatment plan by identifying habits pt wants to develop to improve his mood. Eye Contact:: Good Motor Activity:: Appropriate Appearance:: Casual Speech:: Soft Mood:: Depressed Affect:: Flat Thoughts:: Linear, Logical and No evidence of hallucinations/delusions noted Staff Interventions:: thought challenging, CBT techniques, rapport building, strengths perspective, goal setting and other (creating a daily habit tracker) Client Response:: Pt responded well to session, open to meeting with therapist. Pt reports his most recent doctor's appointment was okay and he was referred to a dietitian. Pt feels this could be helpful as right now pt is just doing this on my own and it has been challenging to cook, find meals, and get enough nutrients. Pt also feels that he could benefit from getting back into a daily routine as pt has been very tired lately and his sleep schedule is off. Pt receptive to creating a habit tracker and this included things such as getting into bed by 10:30 and stimulation off by 11, not vaping before bed, and going for at least a 15 min walk a day. Pt shared he used to feel more ready for bed when he exercised and he also thinks it could help with his anxiety. Pt receptive to also adding practicing a calming skill. Pt took a copy of his habit tracker home and will use it this weekend to george off things he did. Risks/Concerns:: Pt denies any SI or thoughts of . Progress Toward Goals/Plan:: Pt's progress is mild, as pt has been struggling with getting to group on time due to fatigue in the morning. Pt also reports difficulty staying awake throughout group, but when he is engaged he provides good insight. Pt's anxiety is still impacting his overall functioning and pt's biggest stressor continues to be issues with his health. Pt was referred to a dietitian and pt feels this could help him find better food options to get more nutrients and maybe more energy. Pt will continue with IOP tx to prevent decompensation, improve daily functioning, and increase motivation. Time Stopped:: 12:30
--- NOTE | 2023-08-27 09:05 | BH.SGPN.GN ---
Behaviors/Verbalizations/Mental Status: [] Eye contact is good. Motor activity is appropriate. Appearance is casual. Speech is Appropriate. Mood is depressed. Affect is flat. Thoughts are linear and logical. No evidence of psychosis. Reviewed daily check in sheet and no reports of suicidal ideations or intent. Client Response/Progress/Benefit: [] Pt participated when prompted. Attentive. Daily symptom tracker noted 3/5 for depression and irritability. Reports flare-up with somatic symptoms which led to fear and anxiety. ? I was able to calm myself down?. Reports increased awareness and insight of the role of his anxiety in somatic sensations and increased fear. ? My head is causing it?. ? Stuck in my mind?. Overall reports feeling ?better? however is frustrated his medical flare-ups continue to happen despite being not as severe as previously. Progress noted. Benefited from group support, encouragement, and feedback. Will continue in IOP to prevent decompensation, decrease anxiety, and improve functioning. Narrative Note: []
--- NOTE | 2023-08-27 10:10 | BH.SGPN.GN ---
Behaviors/Verbalizations/Mental Status: [] Eye contact is good. Motor activity is appropriate. Appearance is casual. Speech is Appropriate. Mood is anxious. Affect is constricted. Thoughts are linear and logical. No evidence of psychosis. Client Response/Progress/Benefit: []Pt engaged participant AEB listening to others, engaging in activity, and providing feedback at times. Attentive during psychoeducation and provided insight into obstacles that impede mental wellness. Pt completed task of writing his current mental health reality and desired mental health reality. Pt did not volunteer to share his desired reality. Pt shared barriers to desired reality include: avoidance, unhealthy coping skills, negative thoughts, self-doubt, and isolation. Benefited from taking look at current mental health state and obstacles for progress. Pt to continue IOP tx to decrease anxiety, improve daily functioning, and prevent decompensation.
--- NOTE | 2023-08-27 11:15 | BH.SGPN.GN ---
Behaviors/Verbalizations/Mental Status: [] Eye contact is good. Motor activity is appropriate. Appearance is casual. Speech is Appropriate. Mood is anxious. Affect is congruent. Thoughts are linear and logical. No evidence of psychosis Client Response/Progress/Benefit: [] Pt was an active participant in group discussion and activity. Worked with group to identify strategies to help overcome barriers and obstacles to desired reality. Group developed strategies for the common barriers. Identified personal barriers to desired reality and choose one obstacle to work. Pt stated he wants to work on barrier of avoidance of asking for help by trying to reflect on who he feels comfortable trusting to help. Pt seemed to benefit from increased repertoire of healthy coping skills/strategies to overcome common barriers to moving forward. Pt is to continue IOP to improve confidence, increase healthy coping skill application and completion of behavior activation goals, and prevent decompensation. Narrative Note: []
--- NOTE | 2023-08-29 09:00 | BH.SGPN.GN ---
Behaviors/Verbalizations/Mental Status: [] Eye contact good. Motor activity appropriate. Speech within normal limits. Affect congruent, mood anxious and dysthymic. Thoughts linear, logical, no signs of hallucinations or delusions. Reviewed client?s symptom tracker, denies SI, plan, or intent as of 08/29/23. Client Response/Progress/Benefit: [] Pt participated when prompted. Attentive. Daily symptom tracker notes 2/5 for depression, anxiety, and irritability. According to pt he is socializing more and his anger/irritability are decreased. I'm not spiraling out of control. Pt also reported decrease his anxiety symptoms earlier this week. Emotion for today is mellow. Primary stressor is sleep issues which he describes as all over the place. Progress noted per pt report. Benefited from group support, encouragement, and feedback. Will continue in IOP to prevent decompensation, increase healthy coping, and to improve functioning. Narrative Note: []
--- NOTE | 2023-08-29 10:15 | BH.SGPN.GN ---
Behaviors/Verbalizations/Mental Status: []Pt alert and oriented, neatly dressed and groomed. Eye contact fair. Motor activity appropriate. Speech within normal limits. Affect congruent, mood anxious. Thoughts linear, logical, no signs of hallucinations or delusions. Client Response/Progress/Benefit: [] Pt was attentive during psychoeducation and participated in group activity. Group discussed what contributes to a person?s perspective and how perspective can positively or negatively impact mental health treatment. Pt reflected on their perspective today and how it is impacting them. Pt shared his perspective is ?in the middle? as pt is hopeless at times but he is also still trying to challenge his thoughts. Pt stated he feels overwhelmed currently but he still wants to be open-minded. Pt appeared to benefit from increasing awareness of different perspectives and how they can affect mental health. Pt will continue IOP tx to promote use of healthy coping skills, reduce anxiety, and improve daily functioning. ? Narrative Note: []
--- NOTE | 2023-08-29 11:15 | BH.SGPN.GN ---
Behaviors/Verbalizations/Mental Status: []Pt alert and oriented, casually dressed and groomed. Eye contact fair to good. Motor activity appropriate. Speech within normal limits. Affect congruent, mood depressed and anxious. Thoughts linear, logical, no signs of hallucinations or delusions. Client Response/Progress/Benefit: []Pt was attentive and contributed to group discussion. Pt worked with group to identify strategies that can help with challenging negative perspective. Pt completed strengths exploration worksheet, identifying honesty, self-control, fairness, and logic as personal strengths. Pt able to acknowledge how these strengths are helping pt and can continue to help pt in mental health journey. Pt identified wanting to work on leaning on his strength of honesty to open up more in therapy. Benefited from identifying personal strengths and strategies for enhancing use of identified strengths. Pt will continue IOP tx to work on application of anxiety management skills, improve mood stability, and prevent decompensation. Narrative Note: []
--- NOTE | 2023-08-29 13:37 | BH.MDN ---
Multi-Disciplinary Note Note 30-min Individual: Time Started:: 12:05 Date: 08/29/23 Purpose of session/treatment goals addressed:: To work on calming skills to manage anxiety. Eye Contact:: Good Motor Activity:: Appropriate Appearance:: Casual Speech:: Soft Mood:: Anxious and Depressed Affect:: Flat Thoughts:: Racing and No evidence of hallucinations/delusions noted Staff Interventions:: thought challenging, CBT techniques, mindfulness skills (5-senses, deep breathing, PMR), strengths perspective and goal setting (set goals to practice the skills and share them with his girlfriend) Client Response:: Pt responded well to session, open to meeting with therapist. Pt shared he felt like he had been doing okay but pt recently had a medical flare up and now pt is back to hyper-focusing on his throat and medical condition. Pt shared he will sit and be stuck for hours just thinking about it. Pt stated his girlfriend has tried to help him, but this leads to fights at times and they both feel defeated. Pt also feels that he has not been sticking to his habits that he set last week. Pt receptive to working on calming skills as pt recognizes he needs skills to get pt out of his thoughts and into the moment. Pt learned deep breathing strategies, PMR, and the 5-senses which pt appeared to benefit from. Pt also learned why these skills are helpful and how practicing these when he is calmer can further benefit pt. Pt also plans to share these with his girlfriend so she can walk pt through these when he is anxious and spiraling. Pt also learned about maintenance cycles and how changing behaviors or thoughts can impact pt's mood. Risks/Concerns:: Pt denies any suicidal ideations, plan, or intent. Progress Toward Goals/Plan:: Pt's progress is mild, as pt has been struggling with getting to group on time due to fatigue in the morning. Pt reports he had a medical flare up this week and it really fucked me up and increased his anxiety this week. Pt shared he has also noticed more irritability and hopelessness. Pt is waiting to hear back from the dietitian and he hopes this will reduce pt's frustration around eating. Pt responded well to calming skills and was encouraged to practice this over the weekend. Pt will continue with IOP tx to prevent decompensation, improve daily functioning, and increase motivation. Time Stopped:: 12:35
--- NOTE | 2023-09-03 09:05 | BH.SGPN.GN ---
Behaviors/Verbalizations/Mental Status: [] Eye contact is good. Motor activity is appropriate. Appearance is casual. Speech is Appropriate. Mood is depressed/irritable. Affect is congruent. Thoughts are linear and logical. No evidence of psychosis. Reviewed daily check in sheet and no reports of suicidal ideations or intent. Client Response/Progress/Benefit: [] Pt participated at times during the group discussion on differences between Empathy and Sympathy. Pt reports being tired with limited motivation which appears to be related to recent medical flare up. This has led to decreased eating. Reports that he specialized meal program is a ?pain in the ass? as he eats the same meal constantly. Irritable and frustrating. Hopelessness that he medical symptoms will ever improve. No progress noted. Limited benefit from group. Can be dismissive of feedback at times. Will continue in IOP to prevent decompensation, increase health coping skills to address role of anxiety in exacerbation of medical issues. Narrative Note: []
--- NOTE | 2023-09-03 10:10 | BH.SGPN.GN ---
Behaviors/Verbalizations/Mental Status: [] Eye contact is fair. Motor activity is appropriate. Appearance is casual. Speech is Appropriate. Mood is euthymic. Affect is congruent. Thoughts are linear and logical. No evidence of psychosis. Client Response/Progress/Benefit: [] Pt an active participant in group discussions. Participated during interactive discussion on defining conflict (internal/external) and possible benefits to conflict. Attentive during psychoeducation on conflict styles (Avoidant, Accommodating, Competing, Cooperative) and engaged during interactive discussion in which peers identified the benefits and consequences to each conflict style. Pt identified their primary conflict style as avoidant. Stated negative consequence from avoidant is not getting his needs met. Benefited from increased awareness of the impact of conflict styles in mental health. Will continue in IOP tx to prevent decompensation, increase use of healthy coping skills, and decrease anxious avoidance.
--- NOTE | 2023-09-03 11:10 | BH.SGPN.GN ---
Behaviors/Verbalizations/Mental Status: [] Eye contact is fair. Motor activity is appropriate. Appearance is casual. Speech is Appropriate. Mood is anxious. Affect is congruent. Thoughts are linear and logical. No evidence of psychosis. Client Response/Progress/Benefit: [] Pt was an active participant in group discussions and activity. Engaged with peers in activity and identifying healthy ways to approach each conflict scenario. Group discussed various conflict resolution skills that can be useful in addressing conflict outside of IOP. Benefited from practicing and learning conflict resolution skills during group activity. Able to identify areas pt wants to work on to improve how pt manages conflict both internally and externally. Expressed wanting to work on not avoiding and using assertive communication when addressing external conflict. Will continue in IOP to decrease anxious avoidance, increase distress tolerance, and prevent decompensation.
--- NOTE | 2023-09-04 14:21 | BH.TPR ---
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 Pt is receptive to challenging distortions and reports applying skills outside of IOP. Pt contributes during group discussions, takes notes, appears to listen to others, and engages in group activities. Pt does struggle with being late to group. Pt's overall DSM-5 scores have decreased by 19% since admission. Status of Current Problems and Symptoms: Pt continues to struggle with regulating his anxiety when he has a medical flare-up. Pt shared when he has a flare-up he will sit and stare for hours. Pt also has been reporting difficulty regulating his emotions and managing frustration when pt feels anxious. Pt's health and work are pt's biggest psychosocial stressors. Progress Problem #1: Problem Name:: Anxiety, avoidance, excessive worry about health. Status of Goals:: Objective 1- complete with ongoing work encouraged. Pt?s DSM-5 scores for anxiety have decreased by 50% since admission. Pt has learned numerous calming skills. Objective 2- in progress. Pt is working on utilizing positive self-talk to de-escalate his health-related thoughts. Team Recommendations:: Treatment team encourages pt to continue working on distress tolerance skills and utilizing mindfulness strategies when having a medical flare-up. Pt also encouraged to increase his social activities and practice healthy sleep hygiene skills. Problem #2: Problem Name:: Depression, isolation, anhedonia. Status of Goals:: Objective 1- complete with ongoing work encouraged. Pt?s DSM-5 scores for depression have decreased by 29%. Pt has gained skills such as opposite action, goal setting, and thought challenging. Objective 2- in progress. Pt is working on a habit tracker to improve his sleep hygiene and get back into exercise, but pt has been struggling with follow through per his report. Team Recommendations:: Team recommends continued goals and objectives to reinforce skills and maintain gains made. Team recommends pt continue working on combating distortions, being more self-compassionate, and setting realistic goals.
== END 2023-09-08 23:59 ==
LOC: BHIOP 08:00
PROVIDERS: PCP Student in an Organized Health Care Education/Training Program; Referring Provider Psychiatry & Neurology Psychiatry; Visit Provider Psychiatry & Neurology Psychiatry
DX: F33.2 Major depressive disorder, recurrent severe without psychotic features (principal); F41.1 Generalized anxiety disorder; F17.200 Nicotine dependence, unspecified, uncomplicated; F12.90 Cannabis use, unspecified, uncomplicated
CPT/HCPCS: S9480; 90832; 90853

== ENCOUNTER 2023-09-09 07:14 | Outpatient (RCR) | payer OTHER, SELFPAY ==
[2023-09-09 00:48] VITALS: BP 140/86; PULSE 100
--- NOTE | 2023-09-10 09:05 | BH.SGPN.GN ---
Behaviors/Verbalizations/Mental Status: [] Eye contact is good. Motor activity is appropriate. Appearance is casual. Speech is soft. Mood is depressed. Affect is flat. Thoughts are linear and logical. No evidence of psychosis. Reviewed daily check in sheet and no reports of suicidal ideations or intent. Client Response/Progress/Benefit: [] Pt participated at times during group discussions. Attentive. Daily symptom tracker notes 2/5 for anxiety and 1/5 for depression. States ? I feel ready to get back to work?. Shared increased energy and motivation. Has been walking and getting out of the house often and reports more stable mental and physical health. Believes that his health anxiety and fears are ?manageable?. Increased fatigue recently. Emotion for today is ?tired?. Has struggled to wake up in the morning and attend IOP consistently. Progress reported. Benefited from group support, encouragement, and feedback. Will continue in IOP to maintain gains, decrease intrusive health anxiety thoughts, and improve functioning. Narrative Note: []
--- NOTE | 2023-09-10 10:10 | BH.SGPN.GN ---
Behaviors/Verbalizations/Mental Status: []Pt alert and oriented, causally dressed and groomed. Eye contact fair. Motor activity appropriate. Speech within normal limits. Affect constricted, mood euthymic. Thoughts linear, logical, no signs of hallucinations or delusions. Client Response/Progress/Benefit: [] Pt was actively engaged, providing input, and taking notes throughout session. Connected with the topic of pitfalls and listened to group discussion on internal and external barriers that prevent from choosing a healthier path to mental wellness. Group worked together to identify examples of personal internal pitfalls. Engaged in activity and worked cooperatively with peers. Shared personal pitfalls to include avoidance, negative thoughts, and isolation. Pt engaged in learning about the difference between external triggers and self-sabotaging behaviors. Seemed to benefit from increased awareness of personal pitfalls. Pt will continue IOP tx to decrease anxious avoidance, improve healthy coping, and prevent decompensation.
--- NOTE | 2023-09-10 11:05 | BH.MDN ---
Multi-Disciplinary Note Note 60-min Individual: Time Started:: 11:05 Date: 09/10/23 Purpose of session/treatment goals addressed:: Pt requested to speak with therapist this AM. Met with pt to process current thoughts, anxiety, and struggles Eye Contact:: Good Motor Activity:: Appropriate Appearance:: Disheveled Speech:: Soft Mood:: Anxious and Depressed Affect:: Congruent Thoughts:: Linear, Logical and No evidence of hallucinations/delusions noted Staff Interventions:: thought challenging, psychoeducation on: (yulisa anxiety/intrusive thoughts) and taught coping skills Client Response:: Pt reports that he is contemplating getting back to work which has resulted in increased anxiety and fear that his somatic issues (EoE) will eventually interfere with his ability to attend work consistently. Fear of having a flare up of his EoE which is a feeling that food is stuck in his throat. Insight that while EoE is a physical disease there are times when his anxiety can exacerbate minor sensations causing fear and concern. He described a recent flare-up that occurred two days ago which resulted in 2-3 days of fear and anxiety ultimately leading to fear that he is having an allergic reaction to chicken which has been primary food for past several months w/o issue. He also completes a detailed journal of what he eats and how he responds. Believes that his flare ups occur over the weekends, which lead to increased fear, worry, and anxiety during the weekends. Insight that this belief has been worsening fear and leading to self-fulfilling prophecy. Noted decreased anxiety after venting and discussing internal coping skills to reframe and challenge thoughts. He is concerned about developing a plan for his meals and time management for work however has not even applied for jobs therefore doesn't know work days, times, or environment. Difficult to plan without specifics. Risks/Concerns:: Daily symptom tracker notes no active SI, plan, or intent Progress Toward Goals/Plan:: Pt reports overall progress since starting IOP. The classes aren't specific to my throat issues but they help. Improved communication, relationship, emotion management skills, etc have reduced overall mental health struggles which have improved functioning. Reports feeling ready to get back to work. Identified benefits such as distraction, purpose, meaning, routine, and money. Plan is to find a PT job which is not physically demanding. Flare-ups continue to occur however I can manage them. Often times will catastrophize thoughts and events. Will continue in IOP to prevent decompensation, decrease anxiety, and improve functioning. Time Stopped:: 12:05
--- NOTE | 2023-09-18 14:14 | BH.DS_ITS ---
Discharge Summary Demographics Date of Admission:: 08/13/23 Discharge Date: 09/18/23 Presenting Problems at Admission:: Pt is a 23-year-old male with a history of MDD, MANUEL, and health issues impacting his overall functioning. Pt was referred to [facility] tx by his mother due to worsening depression, sleep issues, and difficulty functioning. Pt was diagnosed with a medical condition that affects pt's ability to eat and pt has constant stress about it. Pt shared when he has a flare up, that's all I think about. Pt has lost 25 pounds because he is afraid to try new foods due to flare ups. Pt reports thoughts of , but no SI. Pt endorses lack of energy, feeling like a burden, anhedonia, and issues with sleep. Pt also reports panic attacks and difficulty completing ADLs. Discharge Diagnoses:: Major depressive disorder, recurrent, severe without psychosis F 33.2; Generalized anxiety disorder; Nicotine use disorder; Marijuana use disorder (sober for 4 months) Reason for Discharge:: Pt stopped attending [facility] tx and was discharged due to not adhering to the attendance policy. Treatment Progress During Treatment & Response: Pt discharged prior to completing IOP, so there is no DSM-5 data to compare pt's admission scores to discharge scores. However, at review, pt's depression and anxiety had decreased (see treatment plan review). Pt's attendance had been mostly consistent, but then pt began canceling and pt had two weeks where he did not show to [facility] due to cancelations. When pt was at [facility] he was engaged and interacted with peers. Issues Still to be Addressed:: Anxiety exacerbated by his health condition, work issues, lack of motivation and energy, and emotional dysregulation. Discharge Recommendations/Instructions:: Pt will continue seeing his PCP for medication management. Pt also is hoping to get connected with a dietitian to improve his nutrition and manage his EE. Pt did not have an outpatient therapist at discharge. Discharge Handout
== END 2023-09-18 14:19 | disposition home or self-care (01) ==
LOC: BHIOP 07:14
PROVIDERS: PCP Student in an Organized Health Care Education/Training Program; Referring Provider Psychiatry & Neurology Psychiatry; Visit Provider Psychiatry & Neurology Psychiatry
DX: F33.2 Major depressive disorder, recurrent severe without psychotic features (principal); F41.1 Generalized anxiety disorder; F17.200 Nicotine dependence, unspecified, uncomplicated; F12.91 Cannabis use, unspecified, in remission; Z79.899 Other long term (current) drug therapy
CPT/HCPCS: S9480; 90837; 90853

== ENCOUNTER 2023-10-01 08:19 | Outpatient (RCR) | payer OTHER, SELFPAY | END 2023-10-09 23:59 | LOC: NS 08:19 | PROVIDERS: PCP Student in an Organized Health Care Education/Training Program; Referring Provider Internal Medicine Gastroenterology; Visit Provider Internal Medicine Gastroenterology | DX: Z71.3 Dietary counseling and surveillance (principal); K20.0 Eosinophilic esophagitis | CPT/HCPCS: 97802 ==

== ENCOUNTER → 2024-03-12 | Outpatient (CLI) | payer OTHER, SELFPAY ==
--- NOTE | 2024-03-12 12:58 | ECHOD_ITS ---
Reason For Study: Murmur Procedure This was a 2D Doppler, Color Flow transthoracic echocardiogram. Exam performed in department. Left Ventricle Normal left ventricle. Left ventricular systolic function is normal. The left ventricular ejection fraction is 60 %. No regional wall motion abnormalities noted. Right Ventricle Normal right ventricle. Normal systolic function. Atria Normal left atrium. Normal right atrium. Mitral Valve Normal mitral valve. Tricuspid Valve Normal tricuspid valve. Mild tricuspid valve insufficiency. Aortic Valve Normal aortic valve. Pulmonic Valve Normal pulmonic valve. Great Vessels Normal aortic root. The pulmonary artery is normal size. Inferior vena cava collapse with respiration. Pericardium/Pleural No pericardial effusion. MMode/2D Measurements & Calculations LVIDd: 4.7 cm IVSd: 0.97 cm Ao root diam: 2.5 cm LVIDs: 3.4 cm LVPWd: 0.80 cm RVDd: 3.7 cm FS: 26.5 % LAV(MOD-sp4): 19.0 ml LVAd ap4: 29.3 cm2 LVAd ap2: 31.7 cm2 LVLd ap4: 8.0 cm LVLd ap2: 8.8 cm EDV(MOD-sp4): 89.2 ml EDV(MOD-sp2): 94.4 ml EDV(sp4-el): 90.4 ml EDV(sp2-el): 97.2 ml LVAs ap4: 18.8 cm2 LVAs ap2: 20.1 cm2 LVLs ap4: 6.9 cm LVLs ap2: 7.5 cm ESV(MOD-sp4): 43.2 ml ESV(MOD-sp2): 44.7 ml ESV(sp4-el): 43.8 ml ESV(sp2-el): 45.8 ml EF(MOD-sp4): 51.6 % EF(MOD-sp2): 52.6 % EF(sp4-el): 51.6 % SV(MOD-sp4): 46.0 ml SV(MOD-sp2): 49.7 ml SV(sp4-el): 46.6 ml SI(MOD-sp4): 27.8 ml/m2 SI(MOD-sp2): 30.0 ml/m2 LA A4 area: 8.9 cm2 LA dimension(2D): 2.7 cm RA A4 area: 10.5 cm2 TAPSE: 1.8 cm Time Measurements MV dec time: 0.19 sec Doppler Measurements & Calculations MV E max emiliano: 82.2 cm/sec Lat Peak E' Emiliano: 23.4 cm/sec Med Peak E' Emiliano: 15.1 cm/sec E/E' lat: 3.5 E/E' med: 5.4 MV V2 max: 86.1 cm/sec MV P1/2t max emiliano: 87.4 cm/sec Ao V2 max: 87.0 cm/sec MV max P.0 mmHg MV P1/2t: 62.3 msec Ao max P.0 mmHg MV V2 mean: 47.0 cm/sec Ao V2 mean: 61.7 cm/sec MV mean P.1 mmHg MV dec slope: 410.7 cm/sec2 Ao mean P.7 mmHg MV V2 VTI: 25.9 cm MVA(P1/2t): 3.5 cm2 Ao V2 VTI: 18.4 cm AV (velocity ratio): 0.90 LV V1 max: 76.3 cm/sec PA V2 max: 97.5 cm/sec TR max emiliano: 168.2 cm/sec LV V1 max P.3 mmHg TR max P.3 mmHg LV V1 mean P.6 mmHg LV V1 mean: 59.0 cm/sec LV V1 VTI: 16.6 cm ECHO/Echo Complete Interpretation Summary Normal left ventricle. Left ventricular systolic function is normal. The left ventricular ejection fraction is 60 %. Mild tricuspid valve insufficiency. Structurally normal valves. Ordering Physician: Franck Love Referring Physician: Franck Love Performed By: Vince Whalen RCS
== END | disposition home or self-care (01) ==
LOC: CVS 12:58
PROVIDERS: PCP Student in an Organized Health Care Education/Training Program; Referring Provider Student in an Organized Health Care Education/Training Program; Visit Provider Student in an Organized Health Care Education/Training Program
DX: R01.1 Cardiac murmur, unspecified (principal)
CPT/HCPCS: 93306

== ENCOUNTER → 2024-03-27 | Outpatient (CLI) | payer OTHER, SELFPAY ==
[2024-03-27 13:22] LABS: Absolute Lymphocyte Count 1.84 X10^3/uL (0.83-4.51); Basophil# 0.05 X10^3/uL; Basophil% 0.9 % (0-1); Eosinophil# 0.09 X10^3/uL; Eosinophils% 1.7 % (0-5); Hematocrit 42.7 % (40-54); Hemoglobin 14.4 g/dL (13.0-16.5); Lymphocyte # 1.84 X10^3/ul (0.83-4.51); Lymphocyte % 34.6 % (19-41); Mean Corp Hgb Conc 33.7 g/dL (32-36); Mean Corpuscular Hgb 27.5 pg (27.0-32.0); Mean Corpuscular Volume 81.5 fL (80-94); Mean Platelet Vol. 12.4 fl (6.2-12.0); Monocyte# 0.35 X10^3/uL; Monocyte% 6.6 % (0-10); NRBC Flagged by Analyzer 0 % (0-5); Neutrophil # 2.98 X10^3/uL (2.7-7.7); Platelet Count 174 K/mm3 (150-450); RBC Distribution Width CV 12.6 % (11.6-14.6); RBC Distribution Width SD 37.3 fl (35.1-43.9); Red Blood Count 5.24 M/mm3 (4.6-6.2); White Blood Count 5.3 K/mm3 (4.4-11.0)
[2024-03-27 13:48] LABS: Protein, Urine (Random) 414.5 mg/dL (<11.9); Protein:Creat Ratio 8096 mg/g CRE (0-200)
[2024-03-27 13:52] LABS: ALB/GLOB Ratio 1.1 RATIO (0.9-2.4); AST(SGOT) 18 U/L (15-37); Alanine Aminotransfer ALT/SGPT 23 U/L (16-61); Albumin, Serum 2.9 g/dL (3.2-5.0); Alkaline Phosphatase 66 U/L (45-117); Anion Gap 4 (5-15); BUN 23 mg/dL (7-18); BUN/Creat Ratio 16.5 RATIO (10-20); Calcium,Total 8.4 mg/dL (8.5-10.1); Chloride 108 mmol/L (98-107); Creatinine, Serum 1.39 mg/dL (0.70-1.30); EST Glomerular Filtration Rate 67 mL/min (>60); Est Glom Filt Rate - Afr Amer 81 mL/min (>60); Globulin 2.7 g/dL (2.2-4.2); Glucose 90 mg/dL (74-106); Phosphorus 3.2 mg/dL (2.5-4.9); Potassium 4.5 mmol/L (3.5-5.1); Protein, Total 5.6 g/dL (6.4-8.2); Sodium Level 141 mmol/L (136-145)
== END | disposition home or self-care (01) ==
PROVIDERS: PCP Student in an Organized Health Care Education/Training Program
DX: Q87.81 Alport syndrome (principal)
CPT/HCPCS: 36415; 80053; 82570; 84100; 84156; 85025

== ENCOUNTER 2024-04-14 12:58 | Day surgery (SDC) | payer OTHER, SELFPAY ==
--- NOTE | 2024-04-10 14:40 | PAT.ANE_ITS ---
Pre-Assessment Diagnosis/Proposed Procedure Planned Operative Procedure(s): EGD Anesthesia History Anesthesia History - building performance specialist: Anesthesia History - building performance specialist Hx Hospitalization No 04/10/24 13:28 Any Problems With Anesthesia No 04/10/24 13:28 Cholinesterase deficiency No 04/10/24 13:28 You/Your Family Experience No 04/10/24 13:28 fever (hyperthermia) with Relationship Recent Exposure to Contagious No 06/04/23 01:00 Disease Does patient have nerve No 04/10/24 13:28 stimulator Patient instructed to have device shut off --Does patient have Pacemaker or ICD? When Was Last Pacemaker Check QUESTION #4 FULL TEXT: You/Your Family Experience fever (hyperthermia) with Anesthesia Last Oral Intake Last Oral intake: Last Oral Intake NPO since Meds taken in AM with sips of water? Meds patient instructed to take am of surgery PONV PONV - building performance specialist: PONV - building performance specialist Female No 04/10/24 13:28 HX of Motion Sickness No 04/10/24 13:28 HX of N/V After Surgery No 04/10/24 13:28 Non-Smoker Yes 04/10/24 13:28 Duration of Surgery greater No 04/10/24 13:28 than 60 minutes Number of Risk Factors 1 04/10/24 13:28 PONV Score Low Risk 04/10/24 13:28 Height & Weight Height & Weight: Anesthesia: Height & Weight Height 5 ft 8 in 10/01/23 08:37 Respiratory Assessment Respiratory Assessment - building performance specialist: Respiratory Tract Infection Hx - building performance specialist Hx Respiratory Tract Infection No 04/10/24 13:28 STOP Sleep Apnea STOP Sleep Apnea - building performance specialist: STOP Sleep Apnea - building performance specialist Hx Hypertension No 04/10/24 13:28 Hx Sleep Apnea No 04/10/24 13:28 CPAP No 04/10/24 13:28 BIPAP No 04/10/24 13:28 Do you snore loudly (louder No 04/10/24 13:28 than talking or can be heard Do you often feel tired/ No 04/10/24 13:28 fatigued/ sleepy during daytime? Has anyone observed you stop No 04/10/24 13:28 breathing during sleep? STOP Results Negative 04/10/24 13:28 QUESTION #5 FULL TEXT : Do you snore loudly (louder than talking or can be heard through closed doors)? 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 Specify any problems Hx of Preganancy in last 3 N/A 04/10/24 13:28 Months Nurse Filling Out Transfusion DSCHRIBER 04/10/24 13:28 & Questions: Date: 04/10/24 04/10/24 13:28 Time: 13:29 04/10/24 13:28 Patient unable to answer at this time (ie. confused, unrespo /Reproduction History /Reproductive History - building performance specialist: /Reproductive Hx- building performance specialist Hx Now Gestational Age (in weeks): EDC: Hx Hx Para Hx Section SAB PFSH Medical History (Updated 04/10/24 @ 13:37 by Yuki Moore) Tinnitus of both ears Former smoker Loss of hearing Alport syndrome Cannabis use disorder Generalized anxiety disorder Schatzki's ring EE (eosinophilic esophagitis) GERD (gastroesophageal reflux disease) Home Medications ?Medication ?Instructions ?Recorded ?Last Taken ?Type pantoprazole 40 mg tablet,delayed 40 mg PO BID #60 tab s 07/04/23 Unknown Rx release dupilumab 300 mg/2 mL subcutaneous 300 mg subcut HOYOS Unknown History pen injector (Dupixent) valsartan 40 mg tablet 20 mg PO DAILY 04/10/24 Unkn own History Allergy/AdvReac Type Severity Reaction Status Date / Time codeine Allergy Hives Verified 04/10/24 13:26 beef derived (bovine) AdvReac Nausea/Vom/ Verified 04/10/24 13:26 Diarrhea broccoli AdvReac Nausea/Vom/ Verified 04/10/24 13:26 Diarrhea casein AdvReac Nausea/Vom/ Verified 04/10/24 13:26 Diarrhea corn AdvReac Nausea/Vom/ Verified 04/10/24 13:26 Diarrhea lactose AdvReac Nausea/Vom/ Verified 04/10/24 13:26 Diarrhea whey AdvReac Nausea/Vom/ Verified 04/10/24 13:26 Diarrhea Family History Other Diabetes Kidney disease Surgical History (Updated 04/10/24 @ 13:37 by Yuki Moore) History of esophagogastroduodenoscopy (EGD) Status post labral repair of shoulder History of foot surgery History of tonsillectomy Social History Smoking Status: Former smoker alcohol intake: never substance use type: marijuana Audit: Pertinent Findings Pertinent Findings Echo (EF%) pertinent findings: 03/12/2024 normal left ventricle function normal EF 60% Pulmonary function results/spirometer pertinent findings: Chest x-ray 06/03/2023 no acute cardiopulmonary disease Additional pertinent findings: Alport syndrome causing decreased kidney function creatinine 1.39 Recommendation Anesthesia Recommendation Anesthesia recommendation: OPTIMIZED for anesthesia
[2024-04-14] VITALS (9 sets, daily range): BP systolic 86–124; BP diastolic 58–79; PULSE 77–94; RESP 16–18; TEMP 36.3–36.8; O2SAT 97–100; BMI 19.1
--- NOTE | 2024-04-14 13:27 | PCM.PRE.AN2 ---
ASA Classification* ASA Classification ASA Classification: 2 Assessment & Plan Anesthesia* Anesthesia Assessment Anesthesia Assessment: Discussed sedation and/or anesthesia options, risks, benefits, and alternatives with patient/parents/legal guardian/POA. Questions invited. The patient/parents/legal guardian/POA seems to understand and agrees to proceed with anesthesia plan. Reviewed the physical assessment, medical history, allergy history and patient home medications list prior to surgery/procedure/anesthetic and documented any changes. Performed airway and anesthesia risk assessments. Anesthesia Type Anesthesia Type: MAC History Source History Obtained from:: Patient and Chart Anesthesia Focused Assessment* Temperature: 98.3 F Pulse Rate: 88 Blood Pressure: 124/79 Respiratory Rate: 16 Pulse Ox: 100 Oxygen Delivery Method: Room Air Airway Assessment Mouth opens: >3 cm Mallampati Score: II Teeth Condition: Chipped/Broken (Chipped tooth #7.) Neck Range of motion (ROM): Full ROM Focused Labs Anesthesia Preop lab: CBC WBC 5.3 K/mm3 (4.4-11.0) 03/27/24 12:07 03/27/24 RBC 5.24 M/mm3 (4.6-6.2) 03/27/24 12:07 03/27/24 Hgb 14.4 g/dL (13.0-16.5) 03/27/24 12:07 03/27/24 Hct 42.7 % (40-54) 03/27/24 12:07 03/27/24 Plt Count 174 K/mm3 (150-450) 03/27/24 12:03/27/24 CHEMISTRY Potassium 4.5 mmol/L (3.5-5.1) 03/27/24 12:07 03/27/24 Sodium 141 mmol/L (136-145) 03/27/24 12:07 03/27/24 Magnesium 2.6 mg/dL (1.6-2.6) 06/04/23 05:30 06/04/23 Phosphorus 3.2 mg/dL (2.5-4.9) 03/27/24 12:07 03/27/24 BUN 23 mg/dL (7-18) H 03/27/24 12:07 03/27/24 Creatinine 1.39 mg/dL (0.70-1.30) H 03/27/24 12:07 03/27/24 Glucose 90 mg/dL (74-106) 03/27/24 12:07 03/27/24 POC Glucose 108 mg/dL (70-110) 12/10/13 13:57 12/10/13 TSH 1.63 uIU/mL (0.358-3.74) 08/07/23 13:36 08/07/23 COAG PT 13.7 SECONDS (11.7-14.9) 02/27/23 02:35 02/27/23 Pre-Assessment Diagnosis/Proposed Procedure Planned Operative Procedure(s): EGD Anesthesia History Anesthesia History - hospice chaplain: Anesthesia History - hospice chaplain Hx Hospitalization No 04/10/24 13:28 Any Problems With Anesthesia No 04/10/24 13:28 Cholinesterase deficiency No 04/10/24 13:28 You/Your Family Experience No 04/10/24 13:28 fever (hyperthermia) with Relationship Recent Exposure to Contagious No 04/14/24 13:17 Disease Does patient have nerve No 04/10/24 13:28 stimulator Patient instructed to have device shut off --Does patient have Pacemaker No 04/14/24 13:17 or ICD? When Was Last Pacemaker Check QUESTION #4 FULL TEXT: You/Your Family Experience fever (hyperthermia) with Anesthesia Any additional information?: Yes Any Problems With Anesthesia: Yes (Patient is slow to wake up.) Cholinesterase deficiency: No You/your family experience fever (hyperthermia) with anesthesia: No Last Oral Intake Last Oral intake: Last Oral Intake NPO since 10:00 04/14/24 13:17 Meds taken in AM with sips of water? Meds patient instructed to take am of surgery Any additional information?: Yes NPO since: 10:00 (Sip water at 10 AM.) Meds taken in AM with sips of water?: Yes PONV PONV - hospice chaplain: PONV - hospice chaplain Female No 04/10/24 13:28 HX of Motion Sickness No 04/10/24 13:28 HX of N/V After Surgery No 04/10/24 13:28 Non-Smoker Yes 04/10/24 13:28 Duration of Surgery greater No 04/10/24 13:28 than 60 minutes Number of Risk Factors 1 04/10/24 13:28 PONV Score Low Risk 04/10/24 13:28 Height & Weight Height & Weight: Anesthesia: Height & Weight Height 5 ft 8 in 04/14/24 13:17 Weight: 57.153 kg 04/14/24 13:17 Body Mass Index (BMI) 19.1 04/14/24 13:17 Respiratory Assessment Respiratory Assessment - hospice chaplain: Respiratory Tract Infection Hx - hospice chaplain Hx Respiratory Tract Infection No 04/10/24 13:28 STOP Sleep Apnea STOP Sleep Apnea - hospice chaplain: STOP Sleep Apnea - hospice chaplain Hx Hypertension No 04/10/24 13:28 Hx Sleep Apnea No 04/10/24 13:28 CPAP No 04/10/24 13:28 BIPAP No 04/10/24 13:28 Do you snore loudly (louder No 04/10/24 13:28 than talking or can be heard Do you often feel tired/ No 04/10/24 13:28 fatigued/ sleepy during daytime? Has anyone observed you stop No 04/10/24 13:28 breathing during sleep? STOP Results Negative 04/10/24 13:28 QUESTION #5 FULL TEXT : Do you snore loudly (louder than talking or can be heard through closed doors)? Tobacco Use History Tobacco Use History - hospice chaplain: Tobacco Use History - hospice chaplain Tobacco Use Smoking Status Former smoker 04/10/24 13:28 Hx Tobacco Use Yes 04/10/24 13:28 Years Smoking Packs Smoked per Day Smoking Cessation Date was Yes - quit smoking within 15 04/10/24 13:28 within the last 15 years years Hx Smoking Cessation Date 02/09/24 04/10/24 13:28 Hx Smoking Cessation No 04/10/24 13:28 Counseling Hematologic Medial History Hematologic Hx - hospice chaplain: Hematologic Medical Hx - cyber incident responder Hx of Blood Transfusion No 04/10/24 13:28 Hx of Transfusion in last 3 No 04/10/24 13:28 Months Date of Last Transfusion (if within last 3 months) Ever experience any problems No 04/10/24 13:28 with transfusion(s)? Specify any problems Hx of Preganancy in last 3 N/A 04/10/24 13:28 Months Nurse Filling Out Transfusion DSCHRIBER 04/10/24 13:28 & Questions: Date: 04/10/24 04/10/24 13:28 Time: 13:29 04/10/24 13:28 Patient unable to answer at this time (ie. confused, unrespo /Reproduction History /Reproductive History - hospice chaplain: /Reproductive Hx- hospice chaplain Hx Now Gestational Age (in weeks): EDC: Hx Hx Para Hx Section SAB PFSH Medical History Tinnitus of both ears Former smoker Loss of hearing Alport syndrome Cannabis use disorder Generalized anxiety disorder Schatzki's ring EE (eosinophilic esophagitis) GERD (gastroesophageal reflux disease) Home Medications ?Medication ?Instructions ?Recorded ?Last Taken ?Type pantoprazole 40 mg tablet,delayed 40 mg PO BID #60 tabs 07/04/23 04/14/24 Rx release dupilumab 300 mg/2 mL subcutaneous 300 mg subcut HOYOS 04/10/24 Unknown History pen injector (Dupixent) valsartan 40 mg tablet 20 mg PO DAILY 04/10/24 04/14/24 History Allergy/AdvReac Type Severity Reaction Status Date / Time codeine Allergy Hives Verified 04/14/24 13:17 beef derived (bovine) AdvReac Nausea/Vom/ Verified 04/14/24 13:17 Diarrhea broccoli AdvReac Nausea/Vom/ Verified 04/14/24 13:17 Diarrhea casein AdvReac Nausea/Vom/ Verified 04/14/24 13:17 Diarrhea corn AdvReac Nausea/Vom/ Verified 04/14/24 13:17 Diarrhea lactose AdvReac Nausea/Vom/ Verified 04/14/24 13:17 Diarrhea whey AdvReac Nausea/Vom/ Verified 04/14/24 13:17 Diarrhea Family History Other Diabetes Kidney disease Surgical History History of esophagogastroduodenoscopy (EGD) Status post labral repair of shoulder History of foot surgery History of tonsillectomy Social History Smoking Status: Current every day smoker tobacco type: e-cigarettes alcohol intake: never substance use type: marijuana Review of Systems (Anesthesia) ROS Narrative System reviewed and no additional complaints, except as documented.
--- NOTE | 2024-04-14 13:34 | HP.PCM_ITS ---
HPI - General General Date of Admission: 04/14/24 Date of Service: 04/14/24 Chief Complaint: Eosinophilic esophagitis HPI Narrative WING CALL, is a 23 M who presents for esophageal dysphagia OV 06.21.23 pt reports continued trouble swallowing, but has limited his diet to things he feels he can swallow. Pt states he is taking amitriptyline and pantoprazole, has not gotten the dupixent yet due to cost. Pt states that he has a formed stool every other day. EGD 06.04.23 - Esophageal mucosal changes secondary to eosinophilic esophagitis. Dilated. - Normal stomach. - Normal duodenal bulb. - Biopsies were taken with a cold forceps for evaluation of eosinophilic esophagitis. OV 02.12.24 Pt has been doing well with his EOE on Dupixent. However he has been unable to get the injection for two weeks for some reason. He is nervous he may start to choke again. He is avoiding foods that trigger his symptoms. He still has some discomfort while swallowing but it has improved. He was also diagnosed with Alport syndrome 3 months ago. His retirement village manager would like for him to get an EGD. He denies all other GI symtpoms. Status: Acute [facility] Medical History Tinnitus of both ears Former smoker Loss of hearing Alport syndrome Cannabis use disorder Generalized anxiety disorder Schatzki's ring EE (eosinophilic esophagitis) GERD (gastroesophageal reflux disease) Home Medications ?Medication ?Instructions ?Recorded ?Last Taken ?Type pantoprazole 40 mg tablet,delayed 40 mg PO BID #60 tab s 07/04/23 04/14/24 Rx release dupilumab 300 mg/2 mL subcutaneous 300 mg subcut HOYOS Unknown History pen injector (Dupixent) valsartan 40 mg tablet 20 mg PO DAILY 04/10/2407/03 History Allergy/AdvReac Type Severity Reaction Status Date / Time codeine Allergy Hives Verified 04/14/24 13:17 beef derived (bovine) AdvReac Nausea/Vom/ Verified 04/14/24 13:17 Diarrhea broccoli AdvReac Nausea/Vom/ Verified 04/14/24 13:17 Diarrhea casein AdvReac Nausea/Vom/ Verified 04/14/24 13:17 Diarrhea corn AdvReac Nausea/Vom/ Verified 04/14/24 13:17 Diarrhea lactose AdvReac Nausea/Vom/ Verified 04/14/24 13:17 Diarrhea whey AdvReac Nausea/Vom/ Verified 04/14/24 13:17 Diarrhea Family History Other Diabetes Kidney disease Surgical History History of esophagogastroduodenoscopy (EGD) Status post labral repair of shoulder History of foot surgery History of tonsillectomy Social History Smoking Status: Current every day smoker tobacco type: e-cigarettes alcohol intake: never substance use type: marijuana ROS Constitutional Constitutional: Denies fatigue, fever(s), poor appetite, weight gain or weight loss Gastrointestinal Gastrointestinal: Denies belching, bloating, change in bowel habits, change in stool character, chewing difficulty, coffee ground emesis, constipation, cramping, diarrhea, dyspepsia, dysphagia, early satiety, excessive flatus, fecal incontinence, heartburn, hematemesis, hematochezia, hemorrhoids, loose stools, melena, nausea, odynophagia, rectal bleeding, tenesmus, vomiting or weight changes Vital Signs Vital Signs Vital Signs: 04/14/24 13:17 Temperature 98.3 F Temperature Source Temporal Pulse Rate 88 Respiratory Rate 16 Blood Pressure 124/79 H Blood Pressure Mean 94 Blood Pressure Source Monitor Blood Pressure Position Sitting Blood Pressure Location Left Arm Pulse Ox 100 Oxygen Delivery Method Room Air Weight Weight: 126 lb Body Mass Index (BMI) 19.1 Physical Exam Const alert, oriented x3, no apparent distress and healthy appearing General Appearance: cooperative GI normal to inspection, nondistended, normoactive bowel sounds, soft to palpation, non-tender and non-distended Percussion: normal to percussion Rectal Exam: deferred Assessment & Plan Assessment/Plan (1) EE (eosinophilic esophagitis): PLAN: Assessment and Plan Assessment and Plan (1) EE (eosinophilic esophagitis): Status: Acute Plan: This is a 23 yo m violeta pt here today for f/u. He has been doing well on Dupixent for EOE. He has had some issues with getting his injection and we will have to look into this. He was diagnosed with alport syndrome recently and was told he needed to have an EGD to make sure it was not causing problems in his GI tract. He will undergo EGD for EOE and alport syndrome. He was scheduled for this today. HE will continue PPI and dupixent. -Contiue PPI and Dupixent -EGD -f/u after procedure (2) Alport syndrome: Status: Acute
--- NOTE | 2024-04-14 14:00 | EGD_PTH ---
PATIENT: WING CALL LOC: EN U#:[id number] AGE/SX: 24/M ROOM: RE04/14/[address]: Dr. Sumit Bell DO : 2000 BED: DIS: 04/14/2024 SPEC #: [id number] RECD: 04/15/24 09:13 STATUS: KAYLEIGH KAY #: [id number] NANI: 04/14/24 14:[address]: Sumit Bell DEPT: SURGICAL PATHOLOGY RECD BY: Erlinda Gama ENTERED: 04/15/24 11:14 SP TYPE: EGD BIOPSY OT DR: Dr. Franck Love DO Tissues: Esophagus, NOS Procedures: Surgery Specimen Level IV HEADER OPERATION: EGD, biopsy, dilation PRE-OP DIAGNOSIS: Eosinophilic esophagitis TISSUE SUBMITTED: Random esophagus biopsy MICROSCOPIC DIAGNOSIS Esophagus, random biopsy: Fragments of benign squamous mucosa. See comment. ANGLE. 04/16/2024 COMMENT Increased number of eosinophils consisting with eosinophilic esophagitis are not seen. Correlation with clinical, endoscopic findings and appropriate follow up are necessary. MICROSCOPIC DESCRIPTION Slides are reviewed. GROSS DESCRIPTION Received in fixative is one container labeled with the patient's name and designated Random esophagus biopsy. The specimen consists of two irregular fragments of light churchill soft tissue that in aggregate measure 0.8 x 0.7 x 0.1 cm. The specimen is totally submitted in one cassette. MS/mr 04/15/2024 TC:5 CPT:61534
--- NOTE | 2024-04-14 14:03 | OP.EGD_ITS ---
Patient Name: Chilo Yu Procedure Date: 04/14/2024 1:44 PM Date of : 2000 Age: 24 Procedure: Upper GI endoscopy Indications: Dysphagia Providers: Sumit Bell DO Referring MD: Franck Love Do Medicines: Monitored Anesthesia Care Patient Profile: This is a 24 year old male. Refer to note in patient chart for documentation of history and physical. Patient has symptoms of dysphagia with solids. Complications: No immediate complications. Procedure: Pre-Anesthesia Assessment: - Prior to the procedure, a History and Physical was performed, and patient medications and allergies were reviewed. The patient is competent. The risks and benefits of the procedure and the sedation options and risks were discussed with the patient. All questions were answered and informed consent was obtained. Patient identification and proposed procedure were verified by the physician in the pre-procedure area. Mental Status Examination: alert and oriented. Airway Examination: normal oropharyngeal airway and neck mobility. Respiratory Examination: clear to auscultation. CV Examination: normal. Prophylactic Antibiotics: The patient does not require prophylactic antibiotics. Prior Anticoagulants: The patient has taken no anticoagulant or antiplatelet agents except for NSAID medication. ASA Grade Assessment: II - A patient with mild systemic disease. After reviewing the risks and benefits, the patient was deemed in satisfactory condition to undergo the procedure. The anesthesia plan was to use monitored anesthesia care (MAC). Immediately prior to administration of medications, the patient was re-assessed for adequacy to receive sedatives. The heart rate, respiratory rate, oxygen saturations, blood pressure, adequacy of pulmonary ventilation, and response to care were monitored throughout the procedure. The physical status of the patient was re-assessed after the procedure. After obtaining informed consent, the endoscope was passed under direct vision. Throughout the procedure, the patient's blood pressure, pulse, and oxygen saturations were monitored continuously. The Endoscope was introduced through the mouth, and advanced to the second part of duodenum. The upper GI endoscopy was accomplished without difficulty. The patient tolerated the procedure well. Scope In: 1:51:04 PM Scope Out: 1:56:51 PM Total Procedure Duration Time 0 hours 5 minutes 47 seconds Findings: Mucosal changes including ringed esophagus, feline appearance, longitudinal furrows and small-caliber esophagus were found in the entire esophagus. Esophageal findings were graded using the Eosinophilic Esophagitis Endoscopic Reference Score (EoE-EREFS) as: Edema Grade 1 Present (decreased clarity or absence of vascular markings), Rings Grade 2 Moderate (distinct rings that do not occlude passage of diagnostic 8-10 mm endoscope), Exudates Grade 1 Mild (scattered white lesions involving less than 10 percent of the esophageal surface area), Furrows Grade 1 Mild (vertical lines without visible depth) and Stricture present. Biopsies were obtained from the proximal and distal esophagus with cold forceps for histology of suspected eosinophilic esophagitis. Verification of patient identification for the specimen was done. Estimated blood loss was minimal. A guidewire was placed and the scope was withdrawn. Dilation was performed with a Savary dilator with no resistance at 57 Fr. The dilation site was examined following endoscope reinsertion and showed moderate improvement in luminal narrowing. Estimated blood loss was minimal. A small hiatal hernia was present. The exam of the stomach was otherwise normal. No gross lesions were noted in the first portion of the duodenum. Impression: - Esophageal mucosal changes secondary to eosinophilic esophagitis. Dilated. - Small hiatal hernia. - No gross lesions in the first portion of the duodenum. - Biopsies were taken with a cold forceps for evaluation of eosinophilic esophagitis. Recommendation: - Discharge patient to home. - Resume previous diet. - Continue present medications. - Await pathology results. Procedure Code(s): --- Professional --- 01299, Esophagogastroduodenoscopy, flexible, transoral; with insertion of guide wire followed by passage of dilator(s) through esophagus over guide wire [id number], 59,51, Esophagogastroduodenoscopy, flexible, transoral; with biopsy, single or multiple CPT copyright 2021 [employer]. All rights reserved. The codes documented in this report are preliminary and upon emergency communications officer review may be revised to meet current compliance requirements. Sumit Bell DO 04/14/2024 2:03:41 PM This report has been signed electronically. Number of Addenda: 0 Note Initiated On: 04/14/2024 1:44 PM
--- NOTE | 2024-04-14 14:04 | OP.CCLET_ITS ---
04/14/2024 Franck Love Do Re : Upper GI endoscopy procedure for Chilo Yu Dear Kate This procedure was performed on Sunday, April 14, 2024. My impressions and recommendations are as follows: Impressions : - Esophageal mucosal changes secondary to eosinophilic esophagitis. Dilated. - Small hiatal hernia. - No gross lesions in the first portion of the duodenum. - Biopsies were taken with a cold forceps for evaluation of eosinophilic esophagitis. Recommendations : - Discharge patient to home. - Resume previous diet. - Continue present medications. - Await pathology results. My findings are described in the full procedure note, which is enclosed. If I can be of further assistance, please feel free to contact me at . Sincerely, Sumit Bell, 04/14/2024 2:03:41 PM This report has been signed electronically.
--- NOTE | 2024-04-14 14:04 | PCM.POST.ANE ---
Anesthesia: Postop Eval I Current Vital Signs Temperature: 97.4 F Pulse Rate: 92 Blood Pressure: 97/67 Respiratory Rate: 18 Pulse Ox: 98 Oxygen Delivery Method: Room Air Assessment Airway patent: Yes Spontaneous unlabored respirations: Yes Mental status: Asleep nausea: No Vomiting: No Anesthesia Complication: No Fluid Hydration Crystalloid volume administer (ml): 10 Total IV fluid infused: 10 Progress Note Anesthesia document: Postop Eval 1 completed: Yes
--- NOTE | 2024-04-14 15:01 | POSTOPAN2_ITS ---
Anesthesia Postop Eval I Sum Postop Eval Completion status Anesthesia document: Postop Eval 1 completed: Yes Anesthesia Postop Eval I Summary Anesthesia Postop Eval I Summary: Anesthesia Postop Eval I: Assessment Summary Airway patent Yes 04/14/24 14:05 TIRE SHOP [email or web address].[email or web address] Spontaneous unlabored Yes 04/14/24 14:05 TIRE SHOP MECHANIC.DBAK respirations Mental status Asleep 04/14/24 14:05 TIRE SHOP MECHANIC.[email or web address] nausea No 04/14/24 14:05 TIRE SHOP MECHANIC.DBAK Vomiting No 04/14/24 14:05 TIRE SHOP MECHANIC.DBAK Anesthesia Postop Eval I: Fluid Summary Crystalloid volume administer 10 04/14/24 14:05 TIRE SHOP MECHANIC.DBAK (ml) Colloids volume administered ( ml) Blood Product volume administered (ml) Total IV fluid infused 10 04/14/24 14:05 TIRE SHOP MECHANIC.DBAK Anesthesia Postop Eval I: Summary Notes Anesthesia Complication No 04/14/24 14:05 TIRE SHOP MECHANIC.DBAK Anesthesia Complication Comment: Post-operative progress note Anesthesia: Postop Eval II Evaluation Mental status: Awake and Calm Pain Level: 0 nausea: No Vomiting: No
--- NOTE | 2024-04-14 15:01 | PCM.POSTANE2 ---
Anesthesia Postop Eval I Sum Postop Eval Completion status Anesthesia document: Postop Eval 1 completed: Yes Anesthesia Postop Eval I Summary Anesthesia Postop Eval I Summary: Anesthesia Postop Eval I: Assessment Summary Airway patent Yes 04/14/24 14:05 CASTING DIRECTOR.[email or web address] Spontaneous unlabored Yes 04/14/24 14:05 CASTING DIRECTOR.DBAK respirations Mental status Asleep 04/14/24 14:05 CASTING DIRECTOR.DBAK nausea No 04/14/24 14:05 CASTING DIRECTOR.DBAK Vomiting No 04/14/24 14:05 CASTING DIRECTOR.DBAK Anesthesia Postop Eval I: Fluid Summary Crystalloid volume administer 10 04/14/24 14:05 CASTING DIRECTOR.DBAK (ml) Colloids volume administered ( ml) Blood Product volume administered (ml) Total IV fluid infused 10 04/14/24 14:05 CASTING DIRECTOR.DBAK Anesthesia Postop Eval I: Summary Notes Anesthesia Complication No 04/14/24 14:05 CASTING DIRECTOR.DBAK Anesthesia Complication Comment: Post-operative progress note Anesthesia: Postop Eval II Evaluation Mental status: Awake and Calm Pain Level: 0 nausea: No Vomiting: No
== END 2024-04-14 15:00 | disposition home or self-care (01) ==
LOC: EN 12:58 → AC 13:00
PROVIDERS: PCP Student in an Organized Health Care Education/Training Program; Referring Provider Student in an Organized Health Care Education/Training Program; Visit Provider Internal Medicine Gastroenterology
PROC: 0DJ08ZZ Inspection of Upper Intestinal Tract, Via Natural or Artificial Opening Endoscopic (ICD-10-PCS; CPT 43235; principal; 2024-04-14 13:55)
DX: K20.0 Eosinophilic esophagitis (principal); K44.9 Diaphragmatic hernia without obstruction or gangrene; R13.10 Dysphagia, unspecified; K21.9 Gastro-esophageal reflux disease without esophagitis; Z79.899 Other long term (current) drug therapy; F17.290 Nicotine dependence, other tobacco product, uncomplicated; Q87.81 Alport syndrome
CPT/HCPCS: 43248; 43239; 88305; A4216; C1769

== ENCOUNTER → 2024-06-24 | Outpatient (CLI) | payer OTHER, SELFPAY ==
--- NOTE | 2024-06-24 09:07 | RAD_ITS ---
PROCEDURE: ANKLE MIN 3 VIEWS 06/24/2024 REASON FOR EXAM: Left ankle pain and swelling. No known injury. TECHNIQUE: 3 views of the left ankle COMPARISON: None FINDINGS: Bones: Unremarkable Joints: Unremarkable Soft tissues: Soft tissues are unremarkable. Other: RAD/Ankle min 3 Views IMPRESSION: NO ACUTE FRACTURE OR DISLOCATION. Reading Location: [place] [id number]
== END | disposition home or self-care (01) ==
LOC: MTRAD 09:07
PROVIDERS: PCP Student in an Organized Health Care Education/Training Program; Referring Provider Physician Assistant; Visit Provider Physician Assistant
DX: M25.572 Pain in left ankle and joints of left foot (principal)
CPT/HCPCS: 73610

== ENCOUNTER → 2024-06-30 | Outpatient (CLI) | payer OTHER, SELFPAY ==
[2024-06-30 12:23] LABS: Albumin, Serum 3.5 g/dL (3.5-5.0); Anion Gap 9 (5-15); BUN 29 mg/dL (4-19); BUN/Creat Ratio 21.5 RATIO (10-20); Calcium,Total 8.8 mg/dL (7.6-11.0); Carbon Dioxide 24.5 mmol/L (21.0-32.0); Chloride 108 mmol/L (98-108); Creatinine, Serum 1.33 mg/dL (0.70-1.20); EST Glomerular Filtration Rate 77 (>60); Glucose 85 mg/dL (70-99); Phosphorus 4.4 mg/dL (2.7-4.5); Potassium 3.8 mmol/L (3.3-5.1); Sodium Level 142 mmol/L (133-145); Uric Acid 9.8 mg/dL (3.5-7.2)
== END | disposition home or self-care (01) ==
LOC: LAB 10:43
PROVIDERS: PCP Student in an Organized Health Care Education/Training Program
DX: M10.9 Gout, unspecified (principal); Q87.81 Alport syndrome
CPT/HCPCS: 36415; 80069; 84550